=== PATIENT | male | born 1970 | race Caucasian/White ===

== ENCOUNTER 2024-12-18 17:04 | Inpatient (IN) | payer BC, SELFPAY ==
[2024-12-18] VITALS (23 sets, daily range): BP systolic 89–127; BP diastolic 42–60; BMI 28.2
[2024-12-18 14:05] LABS: Glucose - Point of Care 157 mg/dl (70-99)
--- NOTE | 2024-12-18 14:06 | ED.GENMED ---
History of Present Illness
<Warren Villalpando DO - Last Filed: 12/18/24 14:07>
General
Chief Complaint: Change in Mental Status
Time Seen by Provider: 12/18/24 14:00
<Ras Asif PA-C - Last Filed: 12/18/24 15:25>
General
Source: patient
Exam Limitations: none
History of Present Illness
History of Present Illness:
54-year-old male presents via EMS from home with complaints of weakness. This was a second call from EMS today. He declined treatment initially. He was told by a friend, and he came back at that time. Vital signs are stable for EMS. He was
placed in a wheelchair from EMS to about to be triaged from the waiting room and had an unresponsive episode. I was asked to get involved in the patient's case. He was assisted into a stretcher. On exam initially he was pale unresponsive jaundice
Phy Exam
<Ras Asif PA-C - Last Filed: 12/18/24 15:25>
Physical Exam
Physical Exam:
General: Unwell appearing male unresponsive initially
HEENT: Sclera icteric mucosa dry
Heart: tachycardia
Lungs: Clear no wheeze
Abdomen is soft nontender no pulsatile masses
Neurologic exam throughout my exam the patient woke up and was alert and oriented to person and place he is able to spell his name and give me his birthdate. He was able to lift both legs up
Course
<DO Phoebe Snow Last Filed: 12/18/24 14:07>
Orders/Labs/Results
Orders:
Orders
12/18/24 13:55
Electrocardiogram (*1) Urgent
Reason for Study: Syncope
EKG- Treatment ONCE
12/18/24 14:00
Type And Crossmatch [Type+Screen] Urgent
CT Head W/o Iv Contrast Urgent
Comment:
Reason For Exam: unresponsive
CPK [Creatine Phosphokinase] Urgent
Complete Blood Count/With Diff Urgent
Comprehensive Metabolic Panel Urgent
Ferritin Urgent
Comment: ADD ON
Iron Urgent
Comment: ADD ON
Lipase Urgent
Total Iron Binding Urgent
Comment: ADD ON
Troponin I Urgent
12/18/24 14:05
Urine Drug Abuse Screen Urgent
12/18/24 14:10
0.9% Sodium Chloride 1000 ml [Nss] 1,000 ml IV BOLUS
12/18/24 14:11
Prothrombin Time Urgent
12/18/24 14:14
ABO2 Routine
BBK Wristband Number:
Associate notified that ABO2 has been ordered: [id number]
Date: 12/18/24
Time: 14:11
Processing Talc And Borate Supervisor ID: [id number]
Alcohol Urgent
Ammonia Urgent
COVID-19 Antigen Urgent
Source: Nasal Swab
Influenza A+B Rapid Molecular Urgent
MERI Source: Nasal Swab
Specimen Description:
12/18/24 14:26
* Blood Bank Products Urgent
Blood Bank Products: *Packed RBC Leuko(PRBC's)
Quantity: 4
Transfuse Today: Yes
Reason: Anemia
12/18/24 14:27
Add On- LAB Urgent
Tests Added?: iron, TIBC, ferritin,
Abnormal Lab Results
12/18/24 12/18/24 12/18/24
13:58 14:00 14:11
WBC 29.4 H 10^3/uL
(4.8-10.8)
RBC 0.65 L 10^6/uL
(4.70-6.10)
Hgb 3.3 L* g/dL
(13.0-18.0)
Hct 9.0 L* %
(39.0-52.0)
MCV 138.5 H fL
(80.0-94.0)
MCH 50.8 H pg
(27.0-31.0)
RDW 30.4 H %
(11.5-14.5)
Abs Immat Gran (auto) 2.3 H 10^3/uL
(0-0.05)
Absolute Neuts (auto) 20.3 H 10^3/uL
(1.4-6.5)
Absolute Lymphs (auto) 4.2 H 10^3/uL
(1.2-3.4)
Absolute Monos (auto) 2.3 H 10^3/uL
(0.1-0.6)
Immature Gran % 7.7 H %
(0-0.5)
Lymphocytes % 14.2 L %
(20.5-51.1)
PT 16.3 H Sec
(11.4-14.6)
Carbon Dioxide 17 L mmol/L
(22-30)
BUN 79 H mg/dl
(9-20)
Creatinine 2.5 H mg/dL
(0.7-1.3)
Glucose 140 H mg/dl
(70-99)
Iron 275 H ug/dl
(49-181)
% Saturation 92 H %
(20-50)
Total Bilirubin 6.9 H mg/dl
(0.2-1.3)
Ammonia
Creatine Kinase 43 L U/L
(55-170)
Troponin I 0.046 H* ng/ml
POC Glucose 157 H mg/dl
(70-99)
12/18/24
14:14
WBC
RBC
Hgb
Hct
MCV
MCH
RDW
Abs Immat Gran (auto)
Absolute Neuts (auto)
Absolute Lymphs (auto)
Absolute Monos (auto)
Immature Gran %
Lymphocytes %
PT
Carbon Dioxide
BUN
Creatinine
Glucose
Iron
% Saturation
Total Bilirubin
Ammonia < 9 L umol/L
(9-30)
Creatine Kinase
Troponin I
POC Glucose
12/18/24 14:00
12/18/24 14:00
Vital Signs
Initial and Last Documented VS:
Initial Vital Signs
Temp Pulse Resp BP Pulse Ox
98.2 F 111 16 107/57 93
12/18/24 13:56 12/18/24 13:56 12/18/24 13:56 12/18/24 13:56 12/18/24 13:56
Last Documented Vital Signs
Temp Pulse Resp BP Pulse Ox
98.2 F 111 25 115/53 94
12/18/24 13:56 12/18/24 15:00 12/18/24 15:00 12/18/24 15:00 12/18/24 14:47
<Ras Asif PA-C - Last Filed: 12/18/24 15:25>
Orders/Labs/Results
Orders:
Orders
12/18/24 13:55
Electrocardiogram (*1) Urgent
Reason for Study: Syncope
EKG- Treatment ONCE
12/18/24 14:00
Type And Crossmatch [Type+Screen] Urgent
CT Head W/o Iv Contrast Urgent
Comment:
Reason For Exam: unresponsive
CPK [Creatine Phosphokinase] Urgent
Complete Blood Count/With Diff Urgent
Comprehensive Metabolic Panel Urgent
Ferritin Urgent
Comment: ADD ON
Iron Urgent
Comment: ADD ON
Lipase Urgent
Total Iron Binding Urgent
Comment: ADD ON
Troponin I Urgent
12/18/24 14:05
Urine Drug Abuse Screen Urgent
12/18/24 14:10
0.9% Sodium Chloride 1000 ml [Nss] 1,000 ml IV BOLUS
12/18/24 14:11
Prothrombin Time Urgent
12/18/24 14:14
ABO2 Routine
BBK Wristband Number:
Associate notified that ABO2 has been ordered: [id number]
Date: 12/18/24
Time: 14:11
Processing Talc And Borate Supervisor ID: [id number]
Alcohol Urgent
Ammonia Urgent
COVID-19 Antigen Urgent
Source: Nasal Swab
Influenza A+B Rapid Molecular Urgent
MERI Source: Nasal Swab
Specimen Description:
12/18/24 14:26
* Blood Bank Products Urgent
Blood Bank Products: *Packed RBC Leuko(PRBC's)
Quantity: 4
Transfuse Today: Yes
Reason: Anemia
12/18/24 14:27
Add On- LAB Urgent
Tests Added?: iron, TIBC, ferritin,
Abnormal Lab Results
12/18/24 12/18/24 12/18/24
13:58 14:00 14:11
WBC 29.4 H 10^3/uL
(4.8-10.8)
RBC 0.65 L 10^6/uL
(4.70-6.10)
Hgb 3.3 L* g/dL
(13.0-18.0)
Hct 9.0 L* %
(39.0-52.0)
MCV 138.5 H fL
(80.0-94.0)
MCH 50.8 H pg
(27.0-31.0)
RDW 30.4 H %
(11.5-14.5)
Abs Immat Gran (auto) 2.3 H 10^3/uL
(0-0.05)
Absolute Neuts (auto) 20.3 H 10^3/uL
(1.4-6.5)
Absolute Lymphs (auto) 4.2 H 10^3/uL
(1.2-3.4)
Absolute Monos (auto) 2.3 H 10^3/uL
(0.1-0.6)
Immature Gran % 7.7 H %
(0-0.5)
Lymphocytes % 14.2 L %
(20.5-51.1)
PT 16.3 H Sec
(11.4-14.6)
Carbon Dioxide 17 L mmol/L
(22-30)
BUN 79 H mg/dl
(9-20)
Creatinine 2.5 H mg/dL
(0.7-1.3)
Glucose 140 H mg/dl
(70-99)
Iron 275 H ug/dl
(49-181)
% Saturation 92 H %
(20-50)
Total Bilirubin 6.9 H mg/dl
(0.2-1.3)
Ammonia
Creatine Kinase 43 L U/L
(55-170)
Troponin I 0.046 H* ng/ml
POC Glucose 157 H mg/dl
(70-99)
12/18/24
14:14
WBC
RBC
Hgb
Hct
MCV
MCH
RDW
Abs Immat Gran (auto)
Absolute Neuts (auto)
Absolute Lymphs (auto)
Absolute Monos (auto)
Immature Gran %
Lymphocytes %
PT
Carbon Dioxide
BUN
Creatinine
Glucose
Iron
% Saturation
Total Bilirubin
Ammonia < 9 L umol/L
(9-30)
Creatine Kinase
Troponin I
POC Glucose
12/18/24 14:00
12/18/24 14:00
Vital Signs
Initial and Last Documented VS:
Initial Vital Signs
Temp Pulse Resp BP Pulse Ox
98.2 F 111 16 107/57 93
12/18/24 13:56 12/18/24 13:56 12/18/24 13:56 12/18/24 13:56 12/18/24 13:56
Last Documented Vital Signs
Temp Pulse Resp BP Pulse Ox
98.2 F 111 25 115/53 94
12/18/24 13:56 12/18/24 15:00 12/18/24 15:00 12/18/24 15:00 12/18/24 14:47
<Ras Asif PA-C - Last Filed: 12/18/24 15:25>
MDM/Problems Addressed
Differential Diagnosis Includes:
Generalized weakness with unresponsive episode consider liver failure versus anemia versus intoxication versus drug use, etiology is large
Check labs. He was hooked up to the monitor he became alert. Discussed with emergency room attending
<Ras Asif PA-C - Last Filed: 12/18/24 15:25>
*Critical Care Note
Total Time (30-74mins, 75-104mins- exclusive of procedures): Not Applicable
<Ras Asif PA-C - Last Filed: 12/18/24 15:25>
Update Note
Update Note:
Hemoglobin 3.3 hematocrit 9 white blood cell count 29,000 bilirubin 6.9. Multiple hematologic and metabolic abnormalities. I believe the unresponsive episode with his profound anemia. Vital signs have stabilized blood consent ordered stool was
brown and heme-negative. Discussed with emergency room attending saw the patient. Will admit to hospital for anemia
ED Attending Note
<Warren Villalpando DO - Last Filed: 12/18/24 14:07>
ED Attending Note
Patient seen and examined by attending physician: Yes
I performed the substantive portion of visit, reviewed & personally made and approve the management plan that is documented in note by myself or VICKIE.: Yes
ED Attending Note:
I evaluated the patient at bedside. The patient is jaundiced with scleral icterus. He was mildly hypotensive. He states he lives with his at home. It is unclear if he is HIV positive. His initial blood glucose was 157.
-
Portions of this chart may have been created with voice recognition software.� Occasional wrong word or��sound alike� substitutions may have occurred due to the inherent limitations of voice recognition software.
Discharge Plan
Departure
Patient Disposition: Admit
Date of Disposition: 12/18/24
Time of Disposition: 15:24
Presentation/result/management discussed w/ accepting MD/DO: Hospitalist
Discharge Problem:
Anemia
Prescriptions:
No Action
Hiv Medication
Referrals:
UNKNOWN - PT DOES,NOT KNOW [Family Provider] -
Interventions
Interventions:
*Risk Screen - Suicide Last Done: 12/18/24 14:05
*General Assessment Last Done: 12/18/24 14:05
*Neglect/Abuse Screening Last Done: 12/18/24 14:05
*ED- Fall Risk Assessment Last Done: 12/18/24 14:05
*ED COVID-19 Vaccine History Last Done: 12/18/24 14:05
ED- Pulmonary Assessment Last Done: 12/18/24 14:41
ED- Neurological Assessment Last Done: 12/18/24 14:41
ED- Cardiac Assessment Last Done: 12/18/24 14:41
ED Swallowing Screen Last Done: 12/18/24 14:41
Discharge Date and Time
Print Language: TURKMEN
[2024-12-18] MEDS: NSS 1000 IV (14:11)
[2024-12-18 14:20] LABS: % Basophils 0.1 % (0-2); % Eosinophils 1.1 % (0-6); % Immature Granulocytes 7.7 % (0-0.5); % Lymphocytes 14.2 % (20.5-51.1); % Monocytes 7.8 % (1.7-9.3); % Neutrophils 69.1 % (42.2-75.2); Absolute Eosinophils 0.3 10^3/uL (0-0.7); Absolute Immature Granulocytes 2.3 10^3/uL (0-0.05); Absolute Lymphocytes 4.2 10^3/uL (1.2-3.4); Absolute Monocytes 2.3 10^3/uL (0.1-0.6); Absolute Neutrophils 20.3 10^3/uL (1.4-6.5); Hemoglobin 3.3 g/dL (13.0-18.0); Mean Corp Hgb Conc. 36.7 g/dL (33.0-37.0); Mean Corpuscular Hgb 50.8 pg (27.0-31.0); Mean Corpuscular Volume 138.5 fL (80.0-94.0); Mean Platelet Volume 8.5 fL (7.4-10.4); Nucleated Red Blood Cells % 14.2 % (-); Platelet Count 284 10^3/uL (130-400); Red Blood Cell Count 0.65 10^6/uL (4.70-6.10); Red Cell Dist. Width 30.4 % (11.5-14.5); White Blood Cell Count 29.4 10^3/uL (4.8-10.8)
[2024-12-18 14:32] LABS: AST (SGOT) 48 U/L (17-59); Albumin 4.3 g/dl (3.5-5.0); Alkaline Phosphatase 73 U/L (38-126); Blood Urea Nitrogen 79 mg/dl (9-20); Calcium 9.4 mg/dl (8.4-10.2); Carbon Dioxide 17 mmol/L (22-30); Chloride 100 mmol/L (98-107); Creatine Phosphokinase 43 U/L (55-170); Estimated Creatinine Clearance 36 ml/min; Glucose 140 mg/dl (70-99); Lipase 94 U/L (23-300); Potassium 4.7 mmol/L (3.5-5.1); Sodium 135 mmol/L (135-145); Total Bilirubin 6.9 mg/dl (0.2-1.3); Total Protein 7.6 g/dl (6.3-8.2); eGFR 30.16
[2024-12-18 14:39] LABS: Ammonia < 9 umol/L (9-30)
[2024-12-18 14:40] LABS: Alcohol None Detected
[2024-12-18 14:45] LABS: Anisocytosis 2+; Hypochromasia 1+; Normal RBC Morphology No; Polychromasia 2+
[2024-12-18 14:46] LABS: ALT (SGPT) 33 U/L (0-50); Macrocytosis 2+; Troponin I 0.046 ng/ml
[2024-12-18 14:46] LABS: COVID-19 Antigen Negative (Negative)
[2024-12-18 15:02] LABS: Iron 275 ug/dl (49-181)
--- NOTE | 2024-12-18 15:02 | PHANOTE ---
med rec note- called rafy benitez on file who does not know patient medication, someone one in the back ground also speaking to rafy while i was on the phone, rafy ana luisa phone the phone on me. patient does not know his medication either, or in
ec[facility] or have current pharmacy records. called patient hina avila md at [phone]. rafy number on file is wrong and should be [phone].
[2024-12-18 15:11] LABS: Percent Saturation 92 % (20-50); Total Iron Binding Capacity 296 ug/dl (261-462)
[2024-12-18 15:12] LABS: INR 1.26; PT 16.3 Sec (11.4-14.6)
--- NOTE | 2024-12-18 15:23 | HPS.HSE ---
Addendum entered and electronically signed by Joel Diggs MD 12/18/24 19:56:
I saw and examined the patient.
The INVESTIGATION MANAGER or PA's note was reviewed and I agree with the note.
Comment:
54M HIV HAART, follows with [facility], HTN BPH p/w AMS weakness palpitations. Poor historian, most of history for records, ED report, and report from friend Janice at bedside. Patient found by friend/neighbor weak AMS reporting palpitations.
Initially declined EMS care but later changed his mind. Noted severely lethargic on arrival to ED, unresponsive, since improved (more awake alert conversant coherent) with IVF bolus though remains confused disoriented to place and time, possible
word finding difficulties. Sinus Tachy but otherwise VSS on room air, ED eval was also significant for severe Anemia Hgb 3.3 leukocytosis 29.4 and GOVIND Cr 2.5. No obvious signs of bleeding. Transfusions ordered however type and screen noted ab's
requiring blood from [facility], transfusion delayed as a resolt. With tachycardia elevated white count hx HIV possible GOVIND, significant concern for severe sepsis opportunistic infection (though severe anemia would also likely result in tachycardia
and stress reactive Leukocytosis without infection). Patient admitted to ICU for closer monitoring and further treatment, high risk situation.
Physical Exam
General: Pallor, appears acutely ill
HEENT: NormoCephalic, Atraumatic, sclera icterus
Respiratory: Clear
Cardiac: S1/S2, Regular Rhythm and Tachycardia
GI: abd Soft, Non Tender, seems distended, decreased bowel sounds
Musculoskeletal: No Clubbing, No Cyanosis and No Edema
Skin: No Rash
Neuro: AOx1 disoriented to place and time, seems to have some word finding difficulties, following simple commands
Psych: Confused
#Severe Anemia unclear Etiology possibly 2/2 Severe Sepsis unknown origin, concern immunocompromised opportunistic infection given hx HIV
#acute kidney injury
#Troponin elevation likely Non-Ischemic W[place] d/t severe anemia possible sepsis and GOVIND
#hyperbilirubinemia
#essential hypertension
#BPH
ICU admit
[employer] Supervisor Hematology ID eval requested
[facility]
Check Blood Cultures, UA reflex cx, Lactic Acid
Empiric Vanc Zosyn
CT head appreciated
check CT chest/abd/pelvis w/o IV contrast (oral contrast only) for possible source of infection
IVF support
Monitor renal function
check haptoglobin LDH ordered as add ons
trend troponin
Original Note:
Family Physician
-
Family Physician: NOT KNOW UNKNOWN - PT DOES
Chief Complaint
-
Weakness
History of Present Illness
Patient is a 54-year-old male with past medical history significant for HIV who presented to [facility] ED for evaluation of weakness. Patient with confusion at assessment, friend at bedside who assisted with HPI. Patient is known with HIV
and follows with a program downtown at [place]. Patients friend believes that EMS was called this morning r/t patient having palpitations and weakness, he initially refused care and a friend called EMS back a second time when he was transferred to [facility]. Patient was placed in a wheelchair and taken to triage upon arrival where nursing witnessed an unresponsive episode. Patient at initial assessment in ED presented pale, jaundice and unresponsive. Patient reports currently he is just upset
and embarrassed of situation and frustrated why he does not recall important things currently.
Medical History
Past Medical History
Past Medical History: Reports Other
Additional Past Medical History:
essential hypertension
BPH
HIV
Past Surgical History: Reports None
Social History
Tobacco: Non-smoker
Alcohol: Former
Drug: Former User
Personal:
Living: With Family
Employment: Employed
Family History
Family History: Not pertinent
Allergies / Home Medications
Allergies reflects when Allergies were last updated in [employer].
Home Medications with original date entered in [employer]
Allergy/Medication List:
Allergies
Allergy/AdvReac Type Severity Reaction Status Date / Time
No Known Allergies Allergy Verified 12/18/24 14:08
Home Medications
ascorbic acid (vitamin C) (Vitamin C oral powder) 1 g PO DAILY 12/18/24
bictegravir 50 mg-emtricitabine 200 mg-tenofovir alafenam 25 mg tablet (Biktarvy) 1 tab PO DAILY 12/18/24
finasteride 1 mg tablet 1 mg PO DAILY 12/18/24
lisinopril 20 mg-hydrochlorothiazide 12.5 mg tablet 1 tab PO DAILY 12/18/24
loperamide 2 mg tablet 2 mg PO Q6HPRN PRN diarrhea 12/18/24
loratadine 10 mg tablet 10 mg PO DAILYPRN PRN alleriges 12/18/24
minoxidil 2.5 mg tablet 2.5 mg PO DAILY 12/18/24
olopatadine 0.2 % eye drops (Eye Allergy Itch Relief) 1 drp BOTH EYES DAILYPRN PRN allergies 12/18/24
Review of Systems
-
Unable to obtain full review of systems at this time due to: Other (patient unable to recall, no current complaints besides weakness and memory difficulties )
History Source: Patient
Neurological: Reports Weakness and Other (memory recall delayed )
Physical Exam
Vital Signs
Vital Signs
Temp Pulse Resp BP Pulse Ox
98.2 F 111 25 115/53 94
12/18/24 13:56 12/18/24 15:00 12/18/24 15:00 12/18/24 15:00 12/18/24 14:47
Physical Exam
General: Well Developed, Well Nourished, Slurred Speech and Appears Chronically Ill
HEENT: NormoCephalic, Atraumatic and Other (sclera icteric )
Respiratory: Clear
Cardiac: S1/S2, Regular Rhythm and Tachycardia
Breast: Deferred by me
GI: Soft, Non Tender, Non Distended and Normal Bowel Sounds
Rectal: Hem Negative and Deferred by Provider
Genito-urinary: Deferred by me
Musculoskeletal: No Clubbing, No Cyanosis and No Edema
Skin: No Rash
Neuro: Awake and Other (patient AAOx3, slow memory recall on place)
Psych: Confused
Laboratory Results
-
12/18/24 14:00
12/18/24 14:00
Laboratory Results
PT 16.3 Sec (11.4-14.6) H 12/18/24 14:11
INR 1.26 12/18/24 14:11
Total Bilirubin 6.9 mg/dl (0.2-1.3) H 12/18/24 14:00
AST 48 U/L (17-59) 12/18/24 14:00
ALT 33 U/L (0-50) 12/18/24 14:00
Alkaline Phosphatase 73 U/L (38-126) 12/18/24 14:00
Troponin I 0.046 ng/ml H* 12/18/24 14:00
Lipase 94 U/L (23-300) 12/18/24 14:00
Data Reviewed
-
Medical Tests (Nuc Med, Echo, EKG etc): Report Reviewed by me (EKG: SINUS TACHYCARDIA)
Lab Data: Labs Reviewed by me (hgb 3.3, hct 9.0, WBC 29.4, BUN 79, Creat 2.5, tot bili 6.9, )
Impression/Plan
-
IMPRESSION/PLAN:
#anemia
hgb 3.3, hct 9.0
Iron studies: pending
stool heme negative
- Admit to ICU
- [employer] Supervisor consulted
- Blood consent obtained
- 4 units PRBCs
- Patient positive for antibodies, blood bank coordinating care with [facility]
- Consult Hematology
#sepsis unknown etiology
WBC 29.[address]: Focus of decreased density within the white matter lateral to the frontal horn of the left lateral ventricle, measurements given above. This most likely represents an area of encephalomalacia, possibly from
old infarction. A focal area of demyelination is also possible.
No evidence for acute intracranial hemorrhage. No evidence of mass effect with no midline shift.
Chest/Abd/Pel CT: pending
- ID consult
- start empiric abx (Vanc and Zosyn)
- IVF
#acute kidney injury
BUN 79, Creat 2.5
- IVF
- monitor BMP
- hold Biktarvy
#hyperbilirubinemia
- hold Biktarvy in setting of GOVIND and hyperbilirubinemia
#essential hypertension
- continue lisinopril-HCTZ and minoxidil with hold parameters
#BPH
- continue finasteride
#HIV
- hold Biktarvy in setting of GOVIND and hyperbilirubinemia
Code status: full code
DVT Prophylaxis: SCDs
[2024-12-18 16:26] LABS: Amphetamines Negative (Negative); Barbiturates Negative (Negative); Benzodiazepines Negative (Negative); Buprenorphine Negative (Negative); Cocaine Negative (Negative); Marijuana Negative (Negative); Methadone Negative (Negative); Methamphetamines Negative (Negative); Opiates Negative (Negative); Phencyclidine Negative (Negative); Tricyclic Antidepressants Negative (Negative)
[2024-12-18] MEDS: OMNIPAQUE 50 ML PO (18:21)
[2024-12-18 19:17] LABS: Troponin I 0.081 ng/ml
[2024-12-18 20:02] LABS: LDH 573 U/L (120-246)
[2024-12-18 20:20] LABS: Fibrinogen 429 MG/DL (199-459)
--- NOTE | 2024-12-18 20:29 | PHA.VAN.IN ---
Assessment
- Assessment
Renal Function: Unknown baseline
Concomitant Antimicrobials: piperacillin/tazobactam
Plan
- Plan
Initial / Loading Dose: vanc 2000mg pending administration
Maintenance Regimen: dosing by level
Monitoring: random level 12/19 599
Pharmacokinetics Vancomycin I
- -
Patient Age: 54
Patient Sex: Male
Vancomycin Day #: 1
Indication: Other
Requesting Provider: Dr. Diggs
Pertinent Antimicrobial Allergies:
no pertinent antimicrobial allergies
Height / Weight:
Height 5 ft 10 in
Actual Weight 89.3 kg
Pertinent Past Medical History: HIV
- Vital Signs / Lab Results
Temp Pulse Resp BP Pulse Ox
98.2 F 123 26 127/48 93
12/18/24 13:56 12/18/24 20:15 12/18/24 20:15 12/18/24 20:00 12/18/24 18:49
Lab Results - Hematology
12/18/24
14:00
WBC 29.4 H
Lab Results - Chemistry
12/18/24
14:00
BUN 79 H
Creatinine 2.5 H
Estimated Creat Clear 36
Albumin 4.3
12/18/24
18:40
Lactic Acid Cancelled
Microbiology Results
12/18/24 14:14 Influenza Types A & B (DANIEL) - Final
Nasal Swab Negative for Influenza A & B, NAAT
Negative results must be combined with clinical observations
and patient history.
Nucleic Acid Amplification test (NAAT)performed on the
[employer] platform.
[2024-12-18 20:43] LABS: Lactic Acid 5.7 mmol/L (0.7-2.0)
[2024-12-18] MEDS: LR 1000 IV (21:22)
[2024-12-18] MEDS: ZOSYN 50 IV (21:22)
[2024-12-18 21:24] LABS: Glucose - Point of Care 119 mg/dl (70-99)
[2024-12-18 21:44] LABS: Urine Albumin 2+ (Neg - Trace); Urine Bilirubin Negative (Negative); Urine Character Clear (Clear); Urine Color Amber; Urine Glucose Negative (Negative); Urine Ketone Negative (Negative); Urine Leukocyte 1+ (Negative); Urine Nitrite Negative (Negative); Urine Occult Blood 1+ (Negative); Urine Specific Gravity 1.015 (<1.030); Urine Urobilinogen 1+ (Neg - 1+)
[2024-12-18 21:55] LABS: Urine Red Blood Cell 0-2 /HPF (0-2)
--- NOTE | 2024-12-18 23:43 | PTCARENOTE ---
On arrival pt pale and lethargic, pt confused upon arrival, knows name but unable to say or where he is at. and friend at bedside. pt able to follow some commands, ST on the monitor, 2L NC 95%, no rectal bleeding reported, no vomiting,
voids in urinal tea colored, skin is intact with generalized bruising, Hgb 3.3 in ED, blood bank sent labs to [facility] to get blood for pt, awaiting call from [facility], RECEIVING SUPERVISOR aware and at bedside.
[2024-12-19] VITALS (44 sets, daily range): BP systolic 83–144; BP diastolic 25–87; BMI 28.8
[2024-12-19] MEDS: VANCOCIN 540 MG IV (00:37)
[2024-12-19 00:56] LABS: Troponin I 0.229 ng/ml
--- NOTE | 2024-12-19 01:44 | PTCARENOTE ---
pt continues to be restless in bed, removed IVs and heart monitor, pt educated on leaving equipment on, family remains at bedside, pt tachypneic and tachycardic, sitting up in bed stating he needs to void, unable to void at this time, pt BS for
173cc, bed alarm on and call luque in reach
--- NOTE | 2024-12-19 01:45 | PTCARENOTE ---
EMERGENCY MEDICINE SPECIALIST made aware of midnight labs, no new orders at this time
[2024-12-19] MEDS: ZOSYN 50 IV ×4 (03:47→21:41)
--- NOTE | 2024-12-19 04:12 | PTCARENOTE ---
pt continues to be restless, pt alert and follows some commands, tachy HR 115-125 and RR 30s to 40s, FOOD AND DRINK FACTORY WORKERS aware, family remains at bedside, bed alarm on and call luque in reach
--- NOTE | 2024-12-19 05:06 | PTCARENOTE ---
BPs slowly trending down last BP 95/37 (55), WAD COMPRESSOR OPERATOR ADJUSTER made aware. pt still responsive but restless in bed
--- NOTE | 2024-12-19 05:25 | PTCARENOTE ---
spoke with blood bank twice overnight and they have not received a call from [facility] about the 4 units of PRBCs, ENVIRONMENTAL ADVISOR aware, no new orders at this time. pt continues to have RR in the 30s-40s
--- NOTE | 2024-12-19 06:04 | PTCARENOTE ---
pt increasingly more symptomatic over the past hour, labored breathing, RR in the 40s, more lethargic, SUPERVISOR SLASHING DEPARTMENT aware and at bedside to assess pt, SUPERVISOR SLASHING DEPARTMENT in contact with medical unit secretary to discuss [facility]Bs delivery with [facility], family updated by SUPERVISOR SLASHING DEPARTMENT, lactic
and ABG ordered and completed, non rebreather placed by respiratory, call luque in reach
[2024-12-19 06:20] LABS: B.E. -12.8 mmol/L; HCO3 9.8 mmol/L (21-28); PCO2 17 mmHg (35-48); PO2 165 mmHg (83-108); pH 7.37 (7.35-7.45)
[2024-12-19 06:25] LABS: O2 Saturation % 99.4 % (94-98); O2 Therapy %Oxygen/Room Air 40
[2024-12-19 06:26] LABS: Lactic Acid 15.3 mmol/L (0.7-2.0)
--- NOTE | 2024-12-19 06:56 | W.PN.UPDATE ---
Update Note
Progress Note Update
Patient noted to be in shock, started on Levophed, tachypneic, breathing at 40 per min, in extremis. Matched blood still not available. Lactate noted to be 15. I am very concerned u impending cardiac arrest. Upated at bedside, discussed with
professional tutor retail assistant and Blood bank, , Dr. Lauren. Will proceed with emergent blood transfusion considering it is a life or situation. I explained to the the risk of fatal reaction to unmatched blood. I also updated him about risk of
cardiac arrest during intubation. has consented to proceed.
[2024-12-19] MEDS: LEVOPHED 250 IV ×2 (07:01→09:59)
[2024-12-19] MEDS: BENADRYL 25 MG IV (07:07)
[2024-12-19] MEDS: SOLU-MEDROL PF 40 MG IV (07:07)
[2024-12-19] MEDS: OFIRMEV 100 IV (07:12)
--- NOTE | 2024-12-19 07:21 | W.PN.HOSP.TC ---
Today's Communication/Plan
-
see note
Assessment / Plan
Assessment / Plan
Physical Exam
General: Pallor, critically ill
HEENT: NormoCephalic, Atraumatic, sclera icterus
Respiratory: Clear intubated
Cardiac: S1/S2, Regular Rhythm and Tachycardia
GI: abd Soft, Non Tender, seems distended, decreased bowel sounds
Musculoskeletal: No Clubbing, No Cyanosis and No Edema
Skin: No Rash
Neuro: sedated
54M HIV HAART, follows with [facility], HTN BPH p/w AMS weakness palpitations. Noted severely lethargic on arrival to ED, unresponsive, since improved (more awake alert conversant coherent) with IVF bolus though remained confused disoriented to place
and time, possible word finding difficulties. Sinus Tachy but otherwise VSS on room air, ED eval was also significant for severe Anemia Hgb 3.3 leukocytosis 29.4 and GOVIND Cr 2.5. No obvious signs of bleeding. Transfusions ordered however type and
screen noted ab's requiring blood from [facility], transfusion delayed as a result. With tachycardia elevated white count hx HIV possible GOVIND, significant concern for severe sepsis opportunistic infection (though severe anemia would also likely
result in tachycardia and stress reactive Leukocytosis without infection). Patient admitted to ICU for closer monitoring. Patient in extremis by corporate real estate manager next day prompting intubation and emergent transfusion least incompatible blood.
#severe anemia hgb 3.3, hct 9.0
#Acute Respiratory Failure, Vent Dependent Resp Failure
#Lactic Acidosis likely 2/2/ severe anemia
#Hypovolemic Shock
Iron studies: appreciated
stool heme negative
- ICU admit
- [employer] Advanced Operator Maintainer consult appreciated
-Vent mgmt, pressor support, stress dose steroids Hydrocortisone as per ICU
- Patient positive for antibodies, blood bank coordinating care with [facility]
- Least incompatible PRBCs emergently transfused with pre-treatment steroids, tylenol, and benadryl
- Hematology eval appreciated possible autoimmune hemolytic anemia contributing, steroid decadron added on top of stress dose steroids hydrocortisone
#Coffee ground emesis following intubation NGT placement
#Shock Liver likely 2/2 severe anemia hypotension as above
-GI eval appreciated coffe ground emesis likely NG tube trauma, eventual EGD planned pending stability or sooner if signs of brisk active bleeding
- trend LFTs
#Possible septic shock unclear source
#Leukocytosis, Tachycardia
Head CT: Focus of decreased density within the white matter lateral to the frontal horn of the left lateral ventricle, measurements given above. This most likely represents an area of encephalomalacia, possibly from old infarction. A focal area of
demyelination is also possible. No evidence for acute intracranial hemorrhage. No evidence of mass effect with no midline shift.
Chest/Abd/Pel CT appreciated Lymphadenopathy neck chest wall pelvis likely reactive inflammatory nodes, possible neoplastic lymph nodes, coronary artery calcifications, no evidence pna, large gallstone w/o evidence cholecystitis or biliary ductal
dilation
- ID consult appreciated cont empiric zosyn, vanc discontinued
#acute kidney injury
- Blood transfusions as above
- monitor renal function
- hold Biktarvy
#hyperbilirubinemia
- hold Biktarvy in setting of GOVIND and hyperbilirubinemia
#essential hypertension
- holding home antihypertensives due to shock as above
#BPH
- continue finasteride
#HIV
- hold Biktarvy in setting of GOVIND and hyperbilirubinemia
dvt ppx scd
gi ppx protonix
Full Code
Total Critical Care Time__50___ minutes. I was immediately available to the patient and staff. I personally examined, reviewed labs, diagnostic images/reports, interpretations, treatment plans, discussed patient care with other providers and
patient's Jan (patient is unable to make decisions), entered orders as appropriate and documented the medical record.
Anticipated Discharge: > 48 hours
Subjective/Interval History
-
Date of Service: December 19, 2024
In respiratory distress early this morning prompting intubation and emergent transfusion least incompatible blood.
Objective Data
-
Labs:
Laboratory Results
12/19/24 12/19/24
05:44 06:00
WBC Cancelled
Hgb Cancelled
Hct Cancelled
Plt Count Cancelled
HCO3 9.8 L*
Sodium Cancelled
Potassium Cancelled
Chloride Cancelled
Carbon Dioxide Cancelled
BUN Cancelled
Creatinine Cancelled
Glucose Cancelled
Calcium Cancelled
Total Bilirubin Cancelled
AST Cancelled
ALT Cancelled
Alkaline Phosphatase Cancelled
Vital Signs:
Vital Signs
Temp Pulse Resp BP Pulse Ox
99.4 F 108 34 98/38 85
12/19/24 03:30 12/19/24 07:00 12/19/24 07:00 12/19/24 07:00 12/19/24 05:52
I&O
12/18/24 12/19/24 12/20/24
06:59 06:59 06:59
Intake Total 0 / 0
Output Total 750 / 750
Balance -750 / -750
[2024-12-19] MEDS: SUBLIMAZE 50 MCG IV ×7 (07:40→21:31)
--- NOTE | 2024-12-19 08:35 | CON.INTV ---
Addendum entered and electronically signed by Roshan Matias MD 12/19/24 15:07:
.
Original Note:
Consultation
Consultation Request
Date/Time Consultation Requested: 20:46
Date/Time Consultation Performed: 8:41
Medical History
-
Chief Complaint: AMS
History of Present Illness:
54-year-old male with past medical history of HIV currently on HAART, being seen by ID at [place], hypertension, BPH who presented to [facility] with altered mental status and weakness. Patient was diagnosed with Kaposi's sarcoma and HIV in
2020. He was initially treated with Doxil for sarcoma of the skin until 2023. He did not have any disease in the mucosa�colonoscopy was negative and was negative for mets. He was transiently on Pomalidomide and developed severe anemia. Patient's
last CD4 count was 367, stable. 2 months ago, hemoglobin was 10 and all other labs are normal.
Patient was noted to be severely lethargic in the ED and unresponsive. He was given IV fluid bolus. Remained sinus tachycardia with word finding difficulty. Labs in the ED showed hemoglobin of 3.3, leukocytosis 29.4, creatinine 2. 5, without
obvious signs of bleeding. Transfusion was initially ordered however due to antibodies noted on type and screen, blood was required from [facility] and transfusion was delayed. Patient has been admitted to PCU for closer monitoring due to high risk
situation. With concern for shock and hypovolemia, with potential image of sepsis, patient was started on pressor therapy and required invasive blood pressure monitoring this morning. Manage blood was not available from [facility] and lactate was
15. Emergent blood transfusion had to be considered and has been was explained the risk of fatal reaction to unmatched blood, but consent was given to proceed. Additionally due to respiratory distress, breathing 40 breaths/min, patient was
intubated and goal of MAP bolus above 65. Patient this morning during rounds was on 2 pressors, potentially starting third pressor. 2 more unmatched units of blood were hung due to severely low hemoglobin�4.9, previously 3.3.
Vitals currently 133/58, pulse of 96, respirations 30, afebrile 97.7, 100% O2 saturation on vent.
Past medical history�HIV, hypertension, BPH
Past surgical history�not documented, patient currently intubated unable to obtain
Past Medical History
Past Medical History: Other
Social History
Personal:
Living: With Family
Allergies / Home Medications
Allergies
Allergy/AdvReac Type Severity Reaction Status Date / Time
No Known Allergies Allergy Verified 12/18/24 14:08
Home Medications
�Medication �Instructions �Recorded �Confirmed �Last Taken �Type
ascorbic acid (vitamin C) (Vitamin 1 g PO DAILY 12/18/24 12/18/24 Unknown History
C oral powder)
bictegravir 50 mg-emtricitabine 1 tab PO DAILY 12/18/24 12/18/24 Unknown History
200 mg-tenofovir alafenam 25 mg
tablet (Biktarvy)
finasteride 1 mg tablet 1 mg PO DAILY 12/18/24 12/18/24 Unknown History
lisinopril 20 1 tab PO DAILY 12/18/24 12/18/24 Unknown History
mg-hydrochlorothiazide 12.5 mg
tablet
loperamide 2 mg tablet 2 mg PO Q6HPRN PRN diarrhea 12/18/24 12/18/24 Unknown History
loratadine 10 mg tablet 10 mg PO DAILYPRN PRN alleriges 12/18/24 12/18/24 Unknown History
minoxidil 2.5 mg tablet 2.5 mg PO DAILY 12/18/24 12/18/24 Unknown History
olopatadine 0.2 % eye drops (Eye 1 drp BOTH EYES DAILYPRN PRN 12/18/24 12/18/24 Unknown History
Allergy Itch Relief) allergies
Review of Systems
-
Unable to Obtain full review of systems at this time due to: Patient Intubation
History Source: Patient
Vitals / Labs / Diagnostic Testing
Vital Signs
Temp Pulse Resp BP Pulse Ox
99.4 F 108 34 98/38 100
12/19/24 03:30 12/19/24 07:00 12/19/24 07:00 12/19/24 07:00 12/19/24 07:49
Lab Data
12/19/24 06:00
12/19/24 06:00
Laboratory Results
12/18/24 12/19/24
14:11 05:44
PT 16.3 H
INR 1.26
pH 7.37
pCO2 17 L*
pO2 165 H
HCO3 9.8 L*
O2 Delivery Level %oxygen/room air 40
Microbiology
12/18/24 14:14 Nasal Swab Influenza Types A & B (DANIEL) - Final
Negative for Influenza A & B, NAAT
Negative results must be combined with clinical observations
and patient history.
Nucleic Acid Amplification test (NAAT)performed on the
[employer] platform.
Diagnostic Testing:
Physical Exam
-
HEENT: Normocephalic, Anicteric and Other (Dry mucous membranes, pale, appears acutely ill)
Cardiovascular: S1/S2 and Regular Rhythm
Respiratory: Clear
GI: Soft and Non Tender
Neurology: Other (In and out of consciousness)
Skin: Warm and Dry
General: Respiratory Distress
Assessment
-
54-year-old male with past medical history of HIV, hypertension, BPH currently being managed in the ICU for shock and severe anemia.
#Severe anemia�unknown origin, possibly aplastic anemia secondary to pomalidomide therapy
#Shock, possibly secondary to hypovolemia versus sepsis
#HIV on HAART
#GOVIND
#Troponin elevation likely secondary to nonischemic UT
#Hyperbilirubinemia
#Elevated LFTs
#Essential hypertension
#BPH
� ICU admit
� Hematology, ID on board, appreciate input
� Status post 2 units of unmatched packed red blood cells, currently transfusing 2 units of unmatched packed red blood cells. Awaiting matched blood from [facility]�transfuse when available
� Blood cultures, UA reflex culture pending
� Continue to trend lactic acid�initially 15, currently 13
� Continue empiric vancomycin and Zosyn
� Continue pressor support, currently on norepinephrine, phenylephrine and vasopressin
� Continue IV fluid support
� Continue to monitor BMPs for electrolyte and renal abnormalities
� Pending haptoglobin, bilirubin, B12, folate labs
� LDH elevated at 573, continue to monitor
� Continue to trend troponins
� IV PPI 80 mg given stat, continue IV 40 mg PPI twice daily
� Continue IV hydralazine 5 mg Q4 as needed for blood pressure control
� Continue [place] and monitor ins and outs
� Continue NG tube to low intermittent suction and irrigation every 4
� Continue wrist restraints to rails x 4 for safety
Full code
--- NOTE | 2024-12-19 08:38 | OR.RPT ---
Operative Report
Operative Report
Right subclavian central venous catheter placement
Informed consent was obtained from patient's spouse at bedside. Patient in septic shock on pressor therapy and needed emergent central line access.
Bedside ultrasound was used to confirm patency of right subclavian vein. Under sterile condition area was subsequently cleaned and a full body drape was placed. 3 mL of lidocaine was injected locally for local anesthesia. Under sterile condition
and with an ultrasound probe in place, real-time long axis visualization and cannulation of subclavian vein was performed until blood was aspirated. Syringe was then detached and guidewire was advanced without any resistance. With guidewire in
place, needle was withdrawn. Ultrasound was used again to confirm positioning of guidewire inside the vein lumen. A small jeromy was placed at the skin level and a dilator was placed to about 50% of its length. Dilator was removed and a central
line catheter was threaded over the guidewire. Once catheter inserted guidewire was removed. Caps were placed on all 3 ports of central line. Sterile flushes were used to confirm withdrawal of blood and easy flushing of all 3 ports. Central
catheter was then sutured to skin and dressing was placed.
Complications: None
Blood loss: None
Chest x-ray: Pending
Patient tolerated procedure well.
Performed by: Roshan Matias MD
Date of service: 12/19/2024
--- NOTE | 2024-12-19 08:40 | OR.RPT ---
Operative Report
Operative Report
Right Radial Arterial catheter placement
Informed consent was obtained from patient's spouse at bedside. Patient in septic shock on pressor therapy and needs invasive blood pressure monitoring.
Bedside ultrasound was used to confirm patency of right radial artery. Under sterile condition area was subsequently cleaned and a drape was placed. Under direct ultrasound visualization,, radial artery was cannulated. Once blood was noted in the
chamber guidewire was advanced. Arterial catheter was subsequently advanced over the guidewire, and then guidewire was removed. Pressure tubing was subsequently attached to the catheter and arterial waveform was noted on the monitor. Subsequently
a dressing was placed.
Complications: None
Blood loss: None
Chest x-ray: without any evidence of pneumothorax, central line in appropriate location.
Patient tolerated procedure well.
Performed by: Roshan Matias MD
Date of service: 12/19/2024
--- NOTE | 2024-12-19 08:40 | OR.RPT ---
Operative Report
Operative Report
Rapid sequence intubation
Indication: Respiratory distress, Shock, severe lactic acidosis
Pre-oxygenation: Non re-breather, followed by Bag valve
Premedication: Fentanyl 50 mcg
Induction agent: Etomidate 30 mg
Paralytic agent: Rocuronium 80 mg
Consent: Emergent procedure, Obtained from spouse at bedside
Patient was noted to be in respiratory distress, breathing at 40 per min. Decision was made to emergently intubate the patient. [id number] was used to bring saturations all the way up to mid 90s. Fentanyl 50 mcg IV was given as pre-medication
considering patient was tachycardiac and tachypneic. Levophed was starting to keep MAP > 65 mm.
Etomidate 30 was given as an induction agent followed by rocuronium 80 for paralytic. Patient was continued on BVM, once patient became apneic a GlideScope was used with blade #3, and grade 1 view of vocal cords was obtained. Under direct
visualization an 7.5 ET tube was passed through the vocal cords without difficulty and stylette was removed. Positive color change was observed and patient was bagged and subsequently attached to ventilator. Bilateral air entry was confirmed with
stethoscope and chest x-ray awaited. Bilateral good air entry noted, and saturation noted to be 100%. In view of lactic acidosis, patient was hyperventilated while bagging and then started on 500 tidal volume with 30 per mi RR for 15 ltr minute
ventilation pending ABG
Post intubation sedation with Propofol and Fentanyl
Number of attempts: 1
Complications: None
Time spent: 20 min
[2024-12-19] MEDS: PITRESSIN 100 IV ×2 (09:07→16:23)
[2024-12-19 09:35] LABS: B.E. -15.3 mmol/L; HCO3 9.9 mmol/L (21-28); O2 Saturation % 99.3 % (94-98); PCO2 21 mmHg (35-48); PO2 99 mmHg (83-108)
[2024-12-19 09:41] LABS: pH 7.28 (7.35-7.45)
[2024-12-19 10:10] LABS: Vancomycin Random 18.3 ug/ml
[2024-12-19] MEDS: SODIUM BICARBONATE 50 MEQ IV (10:11)
[2024-12-19] MEDS: LR 500 IV (10:23)
[2024-12-19] MEDS: NSS (PRESERVATIVE FREE) 20 ML IV (10:23)
[2024-12-19] MEDS: PROTONIX IV 80 MG IV (10:24)
[2024-12-19] MEDS: NEO-SYNEPHRINE 250 IV (10:24)
--- NOTE | 2024-12-19 10:24 | CON.ONC ---
Addendum entered and electronically signed by Juan Jose Riggs, DO 12/19/24 14:53:
Following review the updated medication list it appears the patient has been placed on Solu-Medrol 50 mg every 6 hours. Will increase steroid density with dexamethasone 20 mg every 24
Addendum entered and electronically signed by Juan Jose Riggs, DO 12/19/24 14:31:
Review of blood bank data suggests AYSE positive with complement fixation suggesting a component of autoimmune hemolytic anemia as supported by indirect bilirubin elevation as one of the causes of profound anemia. Hold Biktarvy every as it causes
lactic acidosis and elevated bilirubin. Will initiate dexamethasone 40 mg IV daily with PPI.
Original Note:
Impression
Impression
Severe anemia with RDW greater than 30 macrocytosis due to significant reticulocytosis
Multiple antibodies obstructing crossmatch
Reactive leukocytosis
Upper GI bleed coffee grounds and NG tube
Hypotension
HIV
Shock
Rule out sepsis
Lactic acid 13
Plan
Plan
Review of the peripheral smear shows significant reticulocytosis without schistocytes or targets
Team was instructed to premedicate with Benadryl, Tylenol and Solu-Medrol
Patient received 2 units rapid infusion of least incompatible blood which he tolerated so far
Intubated
Hemolysis evaluation sent
Fractionate bilirubin
Substrate assessment
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
Continue ICU level support
Will be GI assessment
Patient History
History of Present Illness
54 y/o HIV follows with [facility], HTN BPH p/w currently intubated and sedated. Patient found by friend/neighbor weak with AMS reporting palpitations. Noted severely lethargic on arrival to ED. ED evaluation was significant for severe Anemia Hgb
3.3, WBC 29.4 and GOVIND Cr 2.5. No obvious signs of bleeding. Evaluation by blood bank revealed multiple antibodies currently being evaluated by the [facility]. Patient required urgent transfusion with deterioration of his clinical status. He was
given least incompatible following premedications with Tylenol, Benadryl and Solu-Medrol. He tolerated the transfusion well. He has been intubated and is stable with improved blood pressure. NG tube placed appears to have coffee-ground material
suggesting potential for upper GI bleed.
Past-Medical/Surgical History
Past Medical History
HTN
BPH
HIV
Past surgical history
None reported
Social History
Tobacco: Non-smoker
Alcohol: Former
Drug: Former User
Personal:
Living: With Family
Employment: Employed
Family History
Family History: Not pertinent
Patient Medication
�Medication �Instructions �Recorded �Confirmed �Last Taken �Type
ascorbic acid (vitamin C) (Vitamin 1 g PO DAILY 12/18/24 12/18/24 Unknown History
C oral powder)
bictegravir 50 mg-emtricitabine 1 tab PO DAILY 12/18/24 12/18/24 Unknown History
200 mg-tenofovir alafenam 25 mg
tablet (Biktarvy)
finasteride 1 mg tablet 1 mg PO DAILY 12/18/24 12/18/24 Unknown History
lisinopril 20 1 tab PO DAILY 12/18/24 12/18/24 Unknown History
mg-hydrochlorothiazide 12.5 mg
tablet
loperamide 2 mg tablet 2 mg PO Q6HPRN PRN diarrhea 12/18/24 12/18/24 Unknown History
loratadine 10 mg tablet 10 mg PO DAILYPRN PRN alleriges 12/18/24 12/18/24 Unknown History
minoxidil 2.5 mg tablet 2.5 mg PO DAILY 12/18/24 12/18/24 Unknown History
olopatadine 0.2 % eye drops (Eye 1 drp BOTH EYES DAILYPRN PRN 12/18/24 12/18/24 Unknown History
Allergy Itch Relief) allergies
Active Medications
Generic Name Dose Route Start Last Admin
Trade Name Freq PRN Reason Stop Dose Admin
Fentanyl Citrate 50 mcg 12/19/24 08:45 12/19/24 09:26
Fentanyl (50 Mcg/Ml) 100 Mcg/2 Ml Ampul IV 01/02/25 08:44 50 mcg
[id number] PRN Administration
see protocol
Protocol
Hydralazine HCl 5 mg 12/18/24 20:46
Hydralazine 20 Mg/Ml Vial IV 01/15/25 20:45
Q4HPRN PRN
SBP>140 or DBP>100
Vancomycin HCl 1 each/ Device 0 mls @ 0 mls/hr 12/18/24 20:05
IV
PER PROTOCOL JAMILA
Protocol
As Directed
Piperacillin Sod/Tazobactam Sod 3.375 gram in 50 mls @ 100 mls/hr 12/18/24 22:00 12/19/24 09:40
Zosyn IV 50 mls
Q6H JAMILA Administration
Norepinephrine Bitartrate 4 mg in 250 mls @ 0 mls/hr 12/19/24 06:45 12/19/24 09:59
Levophed IV 250 mls
PER PROTOCOL JAMILA Administration
Protocol
Per Protocol
Vasopressin 20 units in 100 mls @ 0 mls/hr 12/19/24 08:45 12/19/24 09:07
Pitressin IV 100 mls
PER PROTOCOL JAMILA Administration
Protocol
Per Protocol
Propofol 1,000,000 mcg in 100 mls @ 0 mls/hr 12/19/24 08:45
Diprivan IV
PER PROTOCOL JAMILA
Protocol
Per Protocol
Fentanyl Citrate 1,000 mcg in 100 mls @ 0 mls/hr 12/19/24 08:45
Sublimaze IV
PER PROTOCOL JAMILA
Protocol
Per Protocol
Lactated Ringer's 500 mls @ 0 mls/hr 12/19/24 10:30
Lr IV 12/19/24 10:31
BOLUS ONE
As Directed
Phenylephrine HCl 50 mg in 250 mls @ 0 mls/hr 12/19/24 10:30
Cesar-Synephrine IV
PER PROTOCOL JAMILA
Protocol
Per Protocol
Finasteride 1 Mg 0 mg 12/19/24 08:00
Tablet - Take 1 PO 01/16/25 07:59
Tablet (1mg) Po DAILY JAMILA
Daily
Pantoprazole Sodium 40 mg 12/19/24 20:00
Pantoprazole Sodium 40 Mg/10 Ml Vial IV 01/16/25 19:59
BID JAMILA
Polyethylene Glycol 17 grams 12/20/24 08:00
Polyethylene Glycol Powder 17 Grams Packet TUBE 01/17/25 07:59
DAILY JAMILA
Sodium Chloride 0 flush 12/18/24 21:00
Sodium Chloride 0.9% (Flush) Syringe IV 01/15/25 20:59
PER PROTOCOL JAMILA
Sodium Chloride 10 ml 12/19/24 20:00
Sodium Chloride 0.9% (Preservative Free) 10 Ml Vial IV 01/16/25 19:59
BID JAMILA
Review of Systems
-
Unobtainable intubated and sedated.
Physical Exam
-
General: Well Nourished and Intubated
HEENT: Negative Jaundice
Cardiology: Normal Sinus Rhythm and Other (Tachycardia)
Pulmonary: Clear
GI: Soft
Musculoskeletal: No Clubbing and No Edema
Extremities: Pulses Present
Labs
Lab Results
WBC Cancelled 12/19/24 06:00
RBC Cancelled 12/19/24 06:00
Hgb Cancelled 12/19/24 06:00
Hct Cancelled 12/19/24 06:00
MCV Cancelled 12/19/24 06:00
MCH Cancelled 12/19/24 06:00
MCHC Cancelled 12/19/24 06:00
RDW Cancelled 12/19/24 06:00
Plt Count Cancelled 12/19/24 06:00
MPV Cancelled 12/19/24 06:00
Abs Immat Gran (auto) Cancelled 12/19/24 06:00
Absolute Neuts (auto) Cancelled 12/19/24 06:00
Absolute Lymphs (auto) Cancelled 12/19/24 06:00
Absolute Monos (auto) Cancelled 12/19/24 06:00
Absolute Eos (auto) Cancelled 12/19/24 06:00
Absolute Basos (auto) Cancelled 12/19/24 06:00
Immature Gran % Cancelled 12/19/24 06:00
Neutrophils % Cancelled 12/19/24 06:00
Lymphocytes % Cancelled 12/19/24 06:00
Monocytes % Cancelled 12/19/24 06:00
Eosinophils % Cancelled 12/19/24 06:00
Basophils % Cancelled 12/19/24 06:00
Creatinine Cancelled 12/19/24 06:00
Vital Signs
Vital Signs
Temp Pulse Resp BP Pulse Ox
97.8 F 95 30 135/58 100
12/19/24 07:53 12/19/24 10:15 12/19/24 10:15 12/19/24 08:20 12/19/24 10:00
--- NOTE | 2024-12-19 10:28 | PTCARENOTE ---
Addendum entered by Cara Melton RN 12/19/24 10:34:
ngt placed to LIS, large amount coffee ground drainage. aware
Original Note:
patient report received@0700. patient received hypotensive, restless and pulling off oxygen. engraver automatic at bedside. stat meds to premedicate prior to unmatched PRBC's administered. all consents obtained from patient spouse. first unit administered,
patient lethargic, minimally responsive. emergently intubated by engraver automatic without issue. levophed titration to keep map >65. second unit administered, right subclavian triple line and right radial line inserted by engraver automatic. this senior underwriter placed
an NGT into right nare without issue and mendoza catheter was inserted. stat cxr obtained for placement. propofol initiated. medicated with fentanyl for vent management. patient awake and able to follow commands. labs sent. critical results reported
to engraver automatic. max dose levoiphed, 2 doses bicarb given. fluid bolus initiated, tamiko gtt initiated. family at bedside. updated. support given
[2024-12-19] MEDS: LEVOPHED 258 MG IV ×3 (10:44→18:36)
[2024-12-19] MEDS: SODIUM BICARBONATE 150 MEQ IV (10:44)
[2024-12-19 10:53] LABS: ALT (SGPT) 775 U/L (0-50); AST (SGOT) 1087 U/L (17-59); Albumin 3.6 g/dl (3.5-5.0); Alkaline Phosphatase 60 U/L (38-126); Blood Urea Nitrogen 79 mg/dl (9-20); Carbon Dioxide 8 mmol/L (22-30); Chloride 104 mmol/L (98-107); Estimated Creatinine Clearance 33 ml/min; Glucose 133 mg/dl (70-99); Magnesium 2.6 mg/dl (1.6-2.3); Phosphorus 8.3 mg/dl (2.5-4.5); Potassium 5.5 mmol/L (3.5-5.1); Sodium 138 mmol/L (135-145); Total Bilirubin 7.2 mg/dl (0.2-1.3); Total Protein 6.5 g/dl (6.3-8.2); Triglycerides 139 mg/dl (10-149)
[2024-12-19 10:58] LABS: Hematocrit 12.7 % (39.0-52.0); Hemoglobin 4.9 g/dL (13.0-18.0); Mean Corp Hgb Conc. 38.6 g/dL (33.0-37.0); Mean Corpuscular Hgb 46.2 pg (27.0-31.0); Mean Corpuscular Volume 119.8 fL (80.0-94.0); Mean Platelet Volume 9.3 fL (7.4-10.4); Platelet Count 133 10^3/uL (130-400); Red Blood Cell Count 1.06 10^6/uL (4.70-6.10); Red Cell Dist. Width 33.1 % (11.5-14.5); White Blood Cell Count 34.7 10^3/uL (4.8-10.8)
--- NOTE | 2024-12-19 11:06 | PTCARENOTE ---
third unit emergency released PRBC initiated. per tile setter supervisor, no need for premedication prior to these next units. double concentrated levophed initiated, tamiko gtt per work list. bicarb infusion per orders
[2024-12-19 11:48] LABS: Direct Bilirubin 3.1 mg/dl (0.0-0.4)
--- NOTE | 2024-12-19 12:03 | PHA.VAN.FU ---
Vancomycin Assessment / Plan
- Assessment
Renal Function: SCR Increasing
WBC's are: Trending Up
In the past 24 hrs, patient has been: Afebrile
Concomitant Antimicrobials: piperacillin/tazobactam
- Assessment - Therapeutic Drug Monitoring
Random Level: 18.3 - drawn ~9H after 2g loading dose
- Dosing Plan
Dosing by Level: Hold off on dosing today (hold off on dosing for now - will repeat level to assess this evening)
Given increase in SCR, suspect patient may not require further dosing today
However, given severity of infection and level was drawn < 10H after loading dose, will obtain a repeat level to evaluate for further dosing
- Monitoring Plan
Random Level: 12/19 1600 and 12/20 0600
- Follow Up
Pharmacy will continue to follow.
Vancomycin Follow UP
- -
Patient Age: 54
Patient Sex: Male
Vancomycin Day #: 1 (loading dose received 12/19 00:37)
Indication: Other
Requesting Provider: Dr. Diggs
Pertinent Antimicrobial Allergies:
no pertinent antimicrobial allergies
Height / Weight:
Height 5 ft 10 in
Actual Weight 91.1 kg
Pertinent Past Medical History: HIV
- Vital Signs / Lab Results
Temp Pulse Resp BP Pulse Ox
97.7 F 96 30 133/58 100
12/19/24 11:23 12/19/24 11:15 12/19/24 11:15 12/19/24 11:15 12/19/24 11:25
Lab Results - Hematology
12/18/24 12/19/24 12/19/24
14:00 06:00 09:58
WBC 29.4 H Cancelled 34.7 H
Lab Results - Chemistry
12/18/24 12/19/24 12/19/24
14:00 06:00 09:18
BUN 79 H Cancelled 79 H
Creatinine 2.5 H Cancelled 2.7 H
Estimated Creat Clear 36 Cancelled 33
Albumin 4.3 Cancelled 3.6
12/18/24 12/18/24 12/19/24
18:40 20:19 00:21
Lactic Acid Cancelled 5.7 H* 8.0 H*
12/19/24 12/19/24 12/19/24
00:21 04:46 05:43
Lactic Acid Cancelled Cancelled 15.3 H*
12/19/24
09:18
Lactic Acid 13.0 H*
Lab Results - Urine
12/18/24
21:24
Urine Nitrite (Reflex) Negative
Leukocyte Esterase Rfl 1+ A
Ur Squamous Epith Cells 3-5
Microbiology Results
12/18/24 14:14 Influenza Types A & B (DANIEL) - Final
Nasal Swab Negative for Influenza A & B, NAAT
Negative results must be combined with clinical observations
and patient history.
Nucleic Acid Amplification test (NAAT)performed on the
[employer] platform.
Therapeutic Drug Monitoring
Random Vancomycin 18.3 ug/ml 12/19/24 09:18
[2024-12-19] MEDS: SUBLIMAZE 100 IV (12:10)
--- NOTE | 2024-12-19 12:22 | CON.GI ---
Consultation
-
Date/Time Consultation Performed: 12/19/24
Performing Provider: Xavier Neumann MD
Reason for Consultation: coffe grounds, anemia
Medical History
Chief Complaint / HPI
Chief Complaint: fatigue
History of Present Illness:
The patient is a 54-year-old male with past medical history as noted who presents with fatigue and palpitations. The patient is currently intubated and sedated and history is obtained from his . Over the past several days, likely a week has
been having increasing fatigue. Per his he was not having any other significant symptoms, denied any abdominal pain or gross bleeding. He is up-to-date with colonoscopy at [facility] around 4 years ago which was essentially
normal by report. He is overall been doing well, with good counts by report on HAART. 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 Upon
presentation to the emergency room he was found to have a hemoglobin of 3.3 with an MCV of 138. WBC 29.4, platelets 284. INR was 1.26, LFTs in the thousands with bilirubin of 7.2 which was mostly indirect. He received blood transfusion with
reaction which prompted intubation. After intubation he had an OG tube placed that showed initial coffee-ground's then black material. He has been hypotensive here, currently on pressors.
Past Medical History
Past Medical History: Other (HIV on HAART, hypertension, BPH, Kaposi's with diagnosis of HIV in 2020, abdominal hernia)
Past Surgical History: None
Social History
Tobacco: Non-Smoker
Family History
Family History: Reviewed & Not Pertinent
Allergies / Home Medications
Allergy/AdvReac Type Severity Reaction Status Date / Time
No Known Allergies Allergy Verified 12/18/24 14:08
�Medication �Instructions �Recorded
ascorbic acid (vitamin C) (Vitamin 1 g PO DAILY Supplement 12/18/24
C oral powder)
bictegravir 50 mg-emtricitabine 1 tab PO DAILY HIV 12/18/24
200 mg-tenofovir alafenam 25 mg
tablet (Biktarvy)
finasteride 1 mg tablet 1 mg PO DAILY Urinary Issue 12/18/24
lisinopril 20 1 tab PO DAILY Blood Pressure 12/18/24
mg-hydrochlorothiazide 12.5 mg
tablet
loperamide 2 mg tablet 2 mg PO Q6HPRN PRN diarrhea 12/18/24
loratadine 10 mg tablet 10 mg PO DAILYPRN PRN alleriges 12/18/24
minoxidil 2.5 mg tablet 2.5 mg PO DAILY HAIR GROWTH 12/18/24
olopatadine 0.2 % eye drops (Eye 1 drp BOTH EYES DAILYPRN PRN 12/18/24
Allergy Itch Relief) allergies
Review of Systems
-
All other systems: A 12 pt ROS was Negative except as stated above in HPI
Vital Signs
Temp Pulse Resp BP Pulse Ox
98.4 F 84 30 112/55 100
12/19/24 12:15 12/19/24 12:15 12/19/24 12:15 12/19/24 12:15 12/19/24 12:15
Physical Exam
Exam
General: NAD, sedated and intubated
HEENT: MMM, icteric, no lymphadenopathy
Heart: Regular, no murmurs
Lungs: CTA anteriorly bilaterally
Abdomen: normal bowel sounds, soft, mild right-sided tenderness, no rebound or guarding, no masses, bruits or ascites, small abdominal wall hernia
Extremeties: no edema
Skin: no rashes
Rectal exam with scant yellow stool.
Results
WBC 34.7 10^3/uL (4.8-10.8) H 12/19/24 09:58
Hgb 4.9 g/dL (13.0-18.0) L* D 12/19/24 09:58
Hct 12.7 % (39.0-52.0) L* 12/19/24 09:58
MCV 119.8 fL (80.0-94.0) H D 12/19/24 09:58
Plt Count 133 10^3/uL (130-400) D 12/19/24 09:58
Absolute Neuts (auto) Cancelled 12/19/24 06:00
PT 16.3 Sec (11.4-14.6) H 12/18/24 14:11
INR 1.26 12/18/24 14:11
Sodium 138 mmol/L (135-145) 12/19/24 09:18
Potassium 5.5 mmol/L (3.5-5.1) H 12/19/24 09:18
Chloride 104 mmol/L (98-107) 12/19/24 09:18
Carbon Dioxide 8 mmol/L (22-30) L* 12/19/24 09:18
BUN 79 mg/dl (9-20) H 12/19/24 09:18
Creatinine 2.7 mg/dL (0.7-1.3) H 12/19/24 09:18
Calcium 8.0 mg/dl (8.4-10.2) L 12/19/24 09:18
Total Bilirubin Cancelled 12/19/24 10:46
AST 1087 U/L (17-59) H* 12/19/24 09:18
ALT 775 U/L (0-50) H* 12/19/24 09:18
Alkaline Phosphatase 60 U/L (38-126) 12/19/24 09:18
Lipase 94 U/L (23-300) 12/18/24 14:00
Diagnostic Image Results:
CT:
IMPRESSION: There are multiple top normal to slightly enlarged lymph nodes present within the left lower neck, and the upper chest wall bilaterally. Prominent lymph nodes are also seen within the superior mediastinum. These nodes are nonspecific,
and could be reactive inflammatory lymph nodes in this patient with a history of HIV, although neoplastic lymph nodes are also possible.
Slightly prominent lymph nodes in the pelvis, adjacent to the internal iliac vessels, again nonspecific, statistically most likely reactive inflammatory nodes.
Coronary artery calcifications are present. Please correlate with symptoms of and risk factors for coronary artery disease, with further workup as clinically appropriate.
Moderate elevation right hemidiaphragm. Mild patchy atelectasis in both posterior lungs. No evidence of consolidation to suggest pneumonia. No evidence for groundglass or small airway opacities to suggest opportunistic infection.
Large calcified gallstone. No CT findings to suggest acute cholecystitis. No evidence for biliary ductal dilation.
In the midline upper abdominal wall, small abdominal wall defect with herniation of fat. No evidence for inflammation/edema of the herniated fat.
Prior GI Procedures:
EGD:
Colonoscopy:
Assessment / Plan
-
1. Severe anemia: most consistent with underlying hematological disorder given severe macrocytosis,Elevated indirect bilirubin. He did have coffee grounds initially after OG tube placement though no red blood, and dark material now that lavage is
clear easily. His coffee-ground material is likely from NG tube trauma, less likely major source of blood loss, especially given rectal exam with scant bright yellow stool. Hematology has been consulted and seen. He has received further blood
transfusion and last hemoglobin was 4.9. At this point with OG tube lavage clearing easily, mostly with coffee grounds, doubt significant active brisk GI bleeding. Would continue PPI and close observation, continued care per critical care and
hematology. Will plan eventual endoscopy when resuscitated, sooner if signs of brisk active bleeding.
2. Elevated LFTs: In a marked necroinflammatory pattern, with indirect hyperbilirubinemia. Necroinflammatory pattern likely secondary to shock/low flow. No reports of acetaminophen recently though will check acetaminophen level, hepatitis panel
as well as ultrasound with Dopplers and continue to trend for now. Indirect hyperbilirubinemia likely related to underlying hematological disorder.
I discussed with the patient's and critical care at length.
-
-
Thank you for consultation and allowing me to participate in the patient's care. Please call the confidential secretary GI physician during the after hours with any questions or concerns.
[2024-12-19 12:32] LABS: B.E. -9.2 mmol/L; PCO2 20 mmHg (35-48); PO2 155 mmHg (83-108); pH 7.46 (7.35-7.45)
--- NOTE | 2024-12-19 12:33 | PTCARENOTE ---
third unit completed, fourth unit PRBC initiated(sent up from blood bank in cooler on ice with third unit). GI in, patient with increased nonverbal pain cues with abdomen palpation. ngt continues to drain coffee grounds. medicated with prn fentanyl
bolus. gtt initiated. patient follows commands, gives 'thumbs up' to questions. lungs with coarse breath sounds. labs sent, pending results. construction specialist at bedside. updated. no signs transfusion reaction. patient skin color less ashen, jaundiced
[2024-12-19 12:35] LABS: HCO3 14.2 mmol/L (21-28)
[2024-12-19 12:42] LABS: Lactic Acid 10.7 mmol/L (0.7-2.0)
[2024-12-19 13:13] LABS: Acetaminophen < 10 ug/ml (10-30)
--- NOTE | 2024-12-19 14:08 | CM ---
CM following re: discharge planning.
Reviewed pt's chart, met with pt and pt's spouse at bedside.
Pt is a 54 year old anemia. Patient is currently intubated and sedated and history is obtained from his spouse.
Pt and his spouse live together in an apartment 2nd floor, FF of steps to enter. 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
PCP: pt's spouse stated pt sees NATASHA ESPINOZA at [facility].
Pharmacy: [facility]
D/C plan: uncertain at this time and will de[end on pt's progress.
CM will follow with discharge plan updates as hospitalization progresses.
[2024-12-19 14:15] LABS: Folate > 20.0 ng/ml (2.76-20); Vitamin B12 713 pg/ml (239-931)
[2024-12-19] MEDS: FLUSH (NSS) 1 FLUSH IV (14:39)
--- NOTE | 2024-12-19 14:47 | CON.ID ---
Consultation
-
Date/Time Consultation Requested: 12/18/20242045
Date/Time Consultation Performed: 12/19/2024 1350
Requesting Provider: ROBYN Grimes
Performing Provider: Dr. Hanley
Reason for Consultation: Clinical sepsis
Chief Complaint / Past History
History of Present Illness
Enrique Howard is a 54-year-old male with significant past medical history of HIV (Dx 2VL=22; CY1=113; Biktarvy) and Kaposi's sarcoma being evaluated at the request of Mely Ovalle regarding clinical sepsis. History is obtained from chart
review, records review scanned into the hospital system from his outpatient physicians, and history obtained from a friend. The patient currently is intubated and cannot provide any meaningful history for me.
The patient was in his usual state of health until earlier this week when he reportedly became more fatigued, although the patient's friend at the bedside reports that he may have been ill for a week or 2 longer. He called out of work 2 days ago
and stayed in bed the majority of the day. Yesterday a.m. he felt his heart pounding and called EMS, although when they arrived he refused transportation to the hospital. Finally, a friend arrived and ultimately convinced him to come to the
hospital, and he was transported in.
Once here, he was found to have profound anemia (Hb = 3.3). Additionally, he was found to have a lactic acidosis and an elevated bilirubin. Since admission, he developed hypotension requiring the addition of pressor therapy (currently on 3
pressors), and has been intubated.
According to the family friend, there has been no recent fevers or chills. No history of pain. No history of diarrhea. An NG tube was placed here in the ICU with the finding of coffee-ground gastric contents.
Past History
Additional Past Medical History:
HIV
HIV Dx Date : 02/24/2021
CD4 Efrain : 208
OI Hx : Kaposi's sarcoma
OI Prophylaxis : None
Known Resistance : ?
HLA [id number] : Unknown
ART Hx : Biktarvy
HTN
BPH
HCV (dx 2011; Harvoni 2015)
Past Surgical History: None
Allergy History:
No Known Allergies Allergy (Verified 12/18/24 14:08)
Medications Reviewed: Yes
Current Antibiotics:
Zosyn 3.375 g IV every 6 hours
Vancomycin (dosing per pharmacy)
Social History
Tobacco: Non-Smoker
Alcohol: None
Drug: Former User
Personal:
Living: With Family
Employment: Employed
Family History
Family History: Not Pertinent
Review of Systems
Vital Signs
Temp Pulse Resp BP Pulse Ox
98.6 F 84 30 100/53 100
12/19/24 13:31 12/19/24 14:15 12/19/24 14:15 12/19/24 13:31 12/19/24 14:15
Physical Exam
Physical Exam
Constitutional: Acutely Ill and Toxic
Head: Normocephalic
Eyes: Pupils Equal, Pupils Round, No Conjunctival Hemorrhage and Other (Scleral icterus noted)
Oral: No Thrush, No Ulcers and Other (ET tube in place.)
Cardiovascular: Regular Rate (Tachycardic) and S1/S2; Negative S3/S4 or Murmur
Pulmonary: Coarse; Negative Wheezes or Rales
Gastrointestinal: Soft, Non Distended, Decreased Bowel Sounds, No Rebound and No Guarding
Genito-Urinary: Singletary and Clear Urine; Negative Turbid Urine
Extremities: Negative Edema, Cyanosis or Erythema
Skin: Warm, Dry and Jaundice
Neurological: Other (Sedated on vent)
Psychological: Calm
Lab / Diagnostic Study Results
12/19/24 09:58
Abs Immat Gran (auto) Cancelled 12/19/24 06:00
Absolute Neuts (auto) Cancelled 12/19/24 06:00
Absolute Lymphs (auto) Cancelled 12/19/24 06:00
Absolute Monos (auto) Cancelled 12/19/24 06:00
Absolute Basos (auto) Cancelled 12/19/24 06:00
Immature Gran % Cancelled 12/19/24 06:00
Neutrophils % Cancelled 12/19/24 06:00
Lymphocytes % Cancelled 12/19/24 06:00
Monocytes % Cancelled 12/19/24 06:00
Eosinophils % Cancelled 12/19/24 06:00
Basophils % Cancelled 12/19/24 06:00
PT 16.3 Sec (11.4-14.6) H 12/18/24 14:11
INR 1.26 12/18/24 14:11
Lactic Acid 10.7 mmol/L (0.7-2.0) H* 12/19/24 11:50
Ur Squamous Epith Cells 3-5 /LPF (Few) 12/18/24 21:24
Microbiology Results
Micro:
12/18/24 22:36 MRSA Screen - Pending
Nose
12/18/24 21:24 Urine Culture - Pending
Urine
12/18/24 18:40 Blood Culture - Pending
Blood/Venous
12/18/24 18:41 Blood Culture - Pending
Blood/Venous
12/18/24 14:14 Influenza Types A & B (DANIEL) - Final
Nasal Swab Negative for Influenza A & B, NAAT
Negative results must be combined with clinical observations
and patient history.
Nucleic Acid Amplification test (NAAT)performed on the
[employer] platform.
Imaging:
12/18/2024 CT chest/abdomen/pelvis: Multiple top normal to slightly enlarged lymph nodes present within the left lower neck and upper chest wall bilaterally. Moderate elevation of the right hemidiaphragm with mild patchy atelectasis in both
posterior lungs. No consolidation to suggest pneumonia. Please see full dictation for additional detail.
Assessment / Plan
Profound anemia
Hypotension; on 3 pressors
Leukocytosis
Lactic acidosis
Hyperbilirubinemia
GOVIND
HIV
HTN
BPH
HCV
Recommendations:
At this time, the etiology of the patient's profound anemia is not clear. Patient has been evaluated by [facility], and autoimmune hemolytic anemia is a possibility.
Agree with holding Biktarvy for now given the patient's lactic acidosis (cannot currently rule out NNRTI induced lactic acidosis) along with GOVIND.
Continue empiric zosyn for today. D/C further vanco.
Will check Parvovirus B19 PCR
Follow WBC / temps.
Follow pending cultures.
Trend LFTs, Hb,
Continue with supportive measures, including the use of pressor therapy to maintain MAP >= 65
Further recommendations as additional data is returned.
Care Review
Plan reviewed with: Physician (Critical Care)
--- NOTE | 2024-12-19 15:00 | PTCARENOTE ---
patient with increased cpot/RASS, hiccoughs. feantyl bolus administered, gtt adjustments per work list. Dr Hanley at bedside. orders pending
--- NOTE | 2024-12-19 15:18 | CHAP ---
Emotional and spiritual support provided on and off through the day. Prayer blanket provided. Note, Mr. Howard and Mr. Fisher's friend, Janice, is a volunteer manager planning as well. Will follow.
[2024-12-19 15:57] LABS: B.E. -4.7 mmol/L; HCO3 16.5 mmol/L (21-28); O2 Saturation % 99.5 % (94-98); PO2 141 mmHg (83-108); pH 7.57 (7.35-7.45)
[2024-12-19 15:58] LABS: PCO2 18 mmHg (35-48)
[2024-12-19 16:06] LABS: Hemoglobin 6.8 g/dL (13.0-18.0); Mean Corp Hgb Conc. 35.8 g/dL (33.0-37.0); Mean Corpuscular Hgb 36.4 pg (27.0-31.0); Mean Corpuscular Volume 101.6 fL (80.0-94.0); Mean Platelet Volume 9.7 fL (7.4-10.4); Platelet Count 123 10^3/uL (130-400); Red Blood Cell Count 1.87 10^6/uL (4.70-6.10); Red Cell Dist. Width 26.9 % (11.5-14.5); White Blood Cell Count 30.3 10^3/uL (4.8-10.8)
[2024-12-19] MEDS: DECADRON 55 MG IV (16:14)
[2024-12-19 16:17] LABS: Alkaline Phosphatase 67 U/L (38-126); Blood Urea Nitrogen 81 mg/dl (9-20); Calcium 8.3 mg/dl (8.4-10.2); Carbon Dioxide 15 mmol/L (22-30); Chloride 103 mmol/L (98-107); Estimated Creatinine Clearance 42 ml/min; Glucose 237 mg/dl (70-99); Potassium 4.4 mmol/L (3.5-5.1); Sodium 138 mmol/L (135-145); Total Bilirubin 7.1 mg/dl (0.2-1.3); Total Protein 6.7 g/dl (6.3-8.2); eGFR 37.18
[2024-12-19 16:20] LABS: % Basophils 0.7 % (0-2); % Eosinophils 0.2 % (0-6); % Immature Granulocytes 8.9 % (0-0.5); % Lymphocytes 5.3 % (20.5-51.1); % Monocytes 3.4 % (1.7-9.3); % Neutrophils 81.5 % (42.2-75.2); Absolute Basophils 0.2 10^3/uL (0-0.2); Absolute Eosinophils 0.1 10^3/uL (0-0.7); Absolute Immature Granulocytes 2.7 10^3/uL (0-0.05); Absolute Lymphocytes 1.6 10^3/uL (1.2-3.4); Absolute Neutrophils 24.7 10^3/uL (1.4-6.5); Normal RBC Morphology No; Nucleated Red Blood Cells % 80.7 % (-)
[2024-12-19 16:21] LABS: Anisocytosis 2+; Macrocytosis 1+; Microcytosis 1+
[2024-12-19 16:22] LABS: Lactic Acid 7.5 mmol/L (0.7-2.0); Polychromasia 2+
[2024-12-19] MEDS: DIPRIVAN 100 IV ×2 (16:24→22:13)
[2024-12-19 16:28] LABS: ALT (SGPT) 2146 U/L (0-50)
[2024-12-19 16:34] LABS: Glucose - Point of Care 251 mg/dl (70-99)
--- NOTE | 2024-12-19 16:35 | PTCARENOTE ---
Addendum entered by Cara Melton RN 12/19/24 16:55:
order received for additional unit PRBC. d/w pharmacist, per MD pre medication not required
Original Note:
patient reassessed. multiple prn doses fentanyl per NOV, gtt adjusted. breath sounds coarse bilaterally. ngt continues to drasin coffee ground fluid. labs sent. power operator updated with results. vent changes made by RT, other orders pending. drawn
prior to dexamethasone administered. accu check repeated, d/w pharmacist. notified of elevated glucose
[2024-12-19] MEDS: NOVOLOG FLEXPEN-LOW RESISTANCE 3 UNITS SC (16:38)
[2024-12-19 16:53] LABS: AST (SGOT) 3478 U/L (17-59)
[2024-12-19 17:39] LABS: B.E. -2.8 mmol/L; HCO3 20.6 mmol/L (21-28); O2 Saturation % 99.5 % (94-98); PCO2 29 mmHg (35-48); PO2 129 mmHg (83-108); pH 7.46 (7.35-7.45)
[2024-12-19] MEDS: SOLU-CORTEF 50 MG IV (17:40)
[2024-12-19 18:25] LABS: Glucose - Point of Care 224 mg/dl (70-99)
[2024-12-19] MEDS: NOVOLOG FLEXPEN-LOW RESISTANCE 2 UNITS SC (18:26)
[2024-12-19 18:35] LABS: Hepatitis B Surface Antigen Negative (Negative)
--- NOTE | 2024-12-19 18:38 | PTCARENOTE ---
PRBC transfusing without signs reaction. levophed wean per work list. Tidal Volume changes per orders by RT
[2024-12-19 18:54] LABS: Hepatitis A Antibody, Total Positive (Negative); Hepatitis B Surface Antibody Positive; Hepatitis C Antibody Negative (Negative)
[2024-12-19 18:57] LABS: Hepatitis B Core Ab, Total Negative (Negative)
--- NOTE | 2024-12-19 20:00 | PTCARENOTE ---
on assessment pt intubated and sedated, at bedside, pt slightly restless in bed, PRN meds given see SNEHA, SR on the monitor, R radial Jerrica in place and zeroed, 7.5 ETT 24 at the lip, 18/450/40%/5, scant secretions noted, pulse ox 100%, NPO,
R nare NGT to kelly KOROMA for critical Is&Os, R subclavian central line infusing with Levo, Vaso, Fen, Prop gtt per orders, H&H due to 1999
[2024-12-19 20:16] LABS: Hepatitis A IgM Antibody Negative (Negative); Hepatitis B Core Ab, IgM Negative (Negative)
[2024-12-19 20:29] LABS: Hematocrit 19.3 % (39.0-52.0); Hemoglobin 6.8 g/dL (13.0-18.0)
[2024-12-19 20:34] LABS: Lactic Acid 2.3 mmol/L (0.7-2.0)
[2024-12-19] MEDS: VANCOCIN 150 IV (20:58)
[2024-12-19] MEDS: NSS (PRESERVATIVE FREE) 10 ML IV (20:59)
[2024-12-19] MEDS: PROTONIX IV 40 MG IV (20:59)
[2024-12-19 21:29] LABS: Glucose - Point of Care 204 mg/dl (70-99)
[2024-12-19] MEDS: NOVOLOG FLEXPEN 2 UNITS SC (21:41)
[2024-12-19] MEDS: CALCIUM GLUCONATE 100 IV (22:49)
[2024-12-19 23:14] LABS: B.E. 2.5 mmol/L; HCO3 26.1 mmol/L (21-28); PCO2 35 mmHg (35-48); PO2 122 mmHg (83-108); pH 7.48 (7.35-7.45)
--- NOTE | 2024-12-19 23:28 | PTCARENOTE ---
PRBCs ordered and infusing, appears to be no infusion reaction at this time
[2024-12-20] MEDS: SUBLIMAZE 100 IV ×3 (01:35→21:22)
[2024-12-20] MEDS: LEVOPHED 258 MG IV (01:54)
[2024-12-20] MEDS: PITRESSIN 100 IV (01:54)
[2024-12-20] MEDS: NOVOLOG FLEXPEN-MODERATE RESISTANCE 1 UNITS SC ×4 (02:01→11:53)
[2024-12-20 02:11] LABS: Glucose - Point of Care 181 mg/dl (70-99)
[2024-12-20 03:49] LABS: B.E. 0.5 mmol/L; HCO3 24.3 mmol/L (21-28); O2 Saturation % 99.8 % (94-98); PCO2 35 mmHg (35-48); PO2 118 mmHg (83-108); pH 7.45 (7.35-7.45)
[2024-12-20 03:50] LABS: O2 Therapy 40%
[2024-12-20 04:06] LABS: INR 1.93; PT 22.5 Sec (11.4-14.6)
[2024-12-20] MEDS: ZOSYN 50 IV ×2 (04:14→10:37)
[2024-12-20] MEDS: DIPRIVAN 100 IV ×4 (04:14→22:34)
[2024-12-20 04:25] LABS: Vancomycin Random 15.5 ug/ml
[2024-12-20 04:41] LABS: % Basophils 0.9 % (0-2); % Eosinophils 0.2 % (0-6); % Lymphocytes 4.7 % (20.5-51.1); % Monocytes 3.6 % (1.7-9.3); % Neutrophils 81.6 % (42.2-75.2); Absolute Basophils 0.2 10^3/uL (0-0.2); Absolute Eosinophils 0.1 10^3/uL (0-0.7); Absolute Immature Granulocytes 2.3 10^3/uL (0-0.05); Absolute Lymphocytes 1.2 10^3/uL (1.2-3.4); Absolute Monocytes 0.9 10^3/uL (0.1-0.6); Absolute Neutrophils 21.3 10^3/uL (1.4-6.5); Hematocrit 22.2 % (39.0-52.0); Hemoglobin 7.8 g/dL (13.0-18.0); Mean Corp Hgb Conc. 35.1 g/dL (33.0-37.0); Mean Corpuscular Hgb 35.3 pg (27.0-31.0); Mean Corpuscular Volume 100.5 fL (80.0-94.0); Nucleated Red Blood Cells % 126.1 % (-); Platelet Count 110 10^3/uL (130-400); Red Blood Cell Count 2.21 10^6/uL (4.70-6.10); Red Cell Dist. Width 26.8 % (11.5-14.5); White Blood Cell Count 26.1 10^3/uL (4.8-10.8)
[2024-12-20 04:50] LABS: Albumin 3.5 g/dl (3.5-5.0); Alkaline Phosphatase 66 U/L (38-126); Blood Urea Nitrogen 80 mg/dl (9-20); Carbon Dioxide 22 mmol/L (22-30); Chloride 109 mmol/L (98-107); Direct Bilirubin 2.6 mg/dl (0.0-0.4); Estimated Creatinine Clearance 42 ml/min; Glucose 164 mg/dl (70-99); Magnesium 2.6 mg/dl (1.6-2.3); Phosphorus 4.6 mg/dl (2.5-4.5); Potassium 5.3 mmol/L (3.5-5.1); Sodium 141 mmol/L (135-145); Total Bilirubin 4.8 mg/dl (0.2-1.3); Total Protein 6.4 g/dl (6.3-8.2); eGFR 37.18
[2024-12-20 04:54] LABS: Glucose - Point of Care 191 mg/dl (70-99)
--- NOTE | 2024-12-20 04:55 | PTCARENOTE ---
decreased urine output noted, attempted to flush and reposition catheter but no urine noted, bladder scanned for 503cc, NEW MEDIA STRATEGIST made aware, mendoza replaced and urine was noted.
[2024-12-20] MEDS: SOLU-CORTEF 50 MG IV ×2 (05:04)
[2024-12-20 05:08] VITALS: BMI 29.9
[2024-12-20 05:38] LABS: ALT (SGPT) 2633 U/L (0-50)
[2024-12-20 06:17] LABS: AST (SGOT) 3010 U/L (17-59)
--- NOTE | 2024-12-20 07:18 | W.PN.HOSP.TC ---
Today's Communication/Plan
-
vent mgmt pressor steroids as per ICU
abx as per ID
glycemic control
protonix BID
Assessment / Plan
Assessment / Plan
Physical Exam
General: Pallor resolved, no acute distress, appears comfortable
HEENT: NormoCephalic, Atraumatic, sclera icterus
Respiratory: Clear to auscultation, intubated
Cardiac: S1/S2, Regular Rhythm and Tachycardia
GI: abd Soft, Non Tender, seems distended, decreased bowel sounds
Musculoskeletal: No Clubbing, No Cyanosis and No Edema
Skin: No Rash
Neuro: sedated
54M HIV HAART, follows with [facility], HTN BPH p/w AMS weakness palpitations. Noted severely lethargic on arrival to ED, unresponsive, since improved (more awake alert conversant coherent) with IVF bolus though remained confused disoriented to place
and time, possible word finding difficulties. Sinus Tachy but otherwise VSS on room air, ED eval was also significant for severe Anemia Hgb 3.3 leukocytosis 29.4 and GOVIND Cr 2.5. No obvious signs of bleeding. Transfusions ordered however type and
screen noted ab's requiring blood from [place], transfusion delayed as a result. With tachycardia elevated white count hx HIV possible GOVIND, significant concern for severe sepsis opportunistic infection (though severe anemia would also likely
result in tachycardia and stress reactive Leukocytosis without infection). Patient admitted to ICU for closer monitoring. Patient in extremis by learning design specialist next day prompting intubation and emergent transfusion least incompatible blood.
#severe anemia hgb 3.3, hct 9.0
#Acute Respiratory Failure, Vent Dependent Resp Failure
#Lactic Acidosis likely 2/2/ severe anemia
#Hypovolemic Shock
Iron studies: appreciated
stool heme negative
- ICU admit
- Director Of Category Management consult appreciated
-Vent mgmt, pressor support, steroids as per ICU
- Patient positive for antibodies, blood bank coordinating care with [place] [facility]
- Least incompatible PRBCs emergently transfused with pre-treatment steroids, tylenol, and benadryl
- Hematology eval appreciated possible autoimmune hemolytic anemia contributing, cont steroids
#Coffee ground emesis following intubation NGT placement
#Shock Liver likely 2/2 severe anemia hypotension as above
-GI eval appreciated coffee ground emesis likely 2/2 NGT trauma, EGD performed 12/20/24 Esophagitis noted, no bleeding, cont IV protonix BID, avoid NSAIDs
- trend LFTs improving
#Possible septic shock unclear source
#Leukocytosis, Tachycardia
Head CT: Focus of decreased density within the white matter lateral to the frontal horn of the left lateral ventricle, measurements given above. This most likely represents an area of encephalomalacia, possibly from old infarction. A focal area of
demyelination is also possible. No evidence for acute intracranial hemorrhage. No evidence of mass effect with no midline shift.
Chest/Abd/Pel CT appreciated Lymphadenopathy neck chest wall pelvis likely reactive inflammatory nodes, possible neoplastic lymph nodes, coronary artery calcifications, no evidence pna, large gallstone w/o evidence cholecystitis or biliary ductal
dilation
- ID consult appreciated cont empiric zosyn, vanc discontinued
Troponin Elevation
likely Non-ischemic DE
ECHO appreciated EF 60-65% no regional wall motion abn's
#acute kidney injury
- Blood transfusions as above
- monitor renal function
- hold Biktarvy
#hyperbilirubinemia
- hold Biktarvy in setting of GOVIND and hyperbilirubinemia
#essential hypertension
- holding home antihypertensives due to shock as above
#BPH
- continue finasteride
#HIV
- hold Biktarvy in setting of GOVIND and hyperbilirubinemia
dvt ppx scd
gi ppx protonix
Full Code
Total Critical Care Time__50___ minutes. I was immediately available to the patient and staff. I personally examined, reviewed labs, diagnostic images/reports, interpretations, treatment plans, discussed patient care with other providers, entered
orders as appropriate and documented the medical record.
Anticipated Discharge: > 48 hours
Subjective/Interval History
-
Date of Service: December 20, 2024
Intubated sedated
Objective Data
-
Labs:
Laboratory Results
12/19/24 12/19/24 12/20/24
20:11 23:06 03:40
WBC
Hgb 6.8 L*
Hct 19.3 L*
Plt Count
PT 22.5 H
INR 1.93
HCO3 26.1
Sodium
Potassium
Chloride
Carbon Dioxide
BUN
Creatinine
Glucose
Calcium
Total Bilirubin
AST
ALT
Alkaline Phosphatase
12/20/24 12/20/24 12/20/24
03:41 06:00 10:00
WBC 26.1 H Cancelled
Hgb 7.8 L Cancelled
Hct 22.2 L Cancelled
Plt Count 110 L Cancelled
PT
INR
HCO3 24.3 Pending
Sodium 141
Potassium 5.3 H
Chloride 109 H
Carbon Dioxide 22
BUN 80 H
Creatinine 2.1 H
Glucose 164 H
Calcium 8.0 L
Total Bilirubin 4.8 H
AST 3010 H*
ALT 2633 H*
Alkaline Phosphatase 66
Vital Signs:
Vital Signs
Temp Pulse Resp BP Pulse Ox
99.6 F 63 18 118/65 100
12/20/24 03:37 12/20/24 06:15 12/20/24 06:15 12/19/24 22:24 12/20/24 04:00
I&O
12/19/24 12/20/24 12/21/24
06:59 06:59 06:59
Intake Total 0 / 0 3810.5 / 3810.5
Output Total 750 / 750 2730 / 2730
Balance -750 / -750 1080.5 / 1080.5
[2024-12-20] MEDS: PROTONIX IV 40 MG IV ×2 (07:38→20:30)
[2024-12-20] MEDS: AQUAMEPHYTON 51 MG IV (07:38)
[2024-12-20] MEDS: NSS (PRESERVATIVE FREE) 10 ML IV ×2 (07:38→20:30)
[2024-12-20] MEDS: LASIX 20 MG IV (07:38)
[2024-12-20] MEDS: MIRALAX 17 GRAMS TUBE (07:39)
[2024-12-20 08:15] LABS: Glucose - Point of Care 192 mg/dl (70-99)
--- NOTE | 2024-12-20 08:34 | W.PN.INTV ---
Today's Communication / Plan
Recommendations
See below
Assessment
-
54-year-old male with past medical history of HIV, hypertension, BPH currently being managed in the ICU for shock and severe anemia.
Last 24 Hours:
- Managed in ICU
- Central line and A-line placed on 12/19
- s/p 6 U unmatched pRBC
- WBC 26.1 (downtrending), Hgb 7.8, Plt 110
- Na 141, K 5.3, BUN 80, Cr 2.1
- Lactic acid 2.3, glucose 164, Ca 8, Phos 4.6, Mag 2.6
- total bili 4.8, direct bili 2.6
- AST 3010, ALT 2633, Troponin I 0.560
-Patient still on sedation propofol 5 and fentanyl
#Acute respiratory failure with respiratory distress
Patient placed on vent on 12/19
Continue to monitor ABG
Continue daily chest x-rays
#Shock with lactic acidosis�possibly secondary to hypovolemia versus severe anemia
#Suspected autoimmune hemolytic anemia
Continue PT, Mag, CMP, CBC Q12
Status post 6 units of unmatched blood
Continue pressor support�currently on norepinephrine and vasopressin. Phenylephrine discontinued.
Continue to monitor hemoglobin with minimal blood draws
Status post bicarb pushes with improved pH
Continue vancomycin and Zosyn, pending cultures
Infectious disease on board, appreciate input
Elevated indirect bilirubin
Hold Biktarvy
Patient started on dexamethasone IV 20 mg daily and 50 mg of hydrocortisone with IV PPI
Hematology on board, appreciate input
Per GI, endoscopy may be performed within next 24 hours. Appreciate recommendations
Pending echo and EKG
#Elevated LFTs
Necroinflammatory pattern with elevated indirect bilirubin, likely secondary to shock
Pending hepatitis panel
Ultrasound with Doppler shows patent flow.
#GOVIND
#Hyperkalemia
Hold antihypertensives and continue IV fluids
Continue serial BMPs
Vitamin K given on 12/20
Single dose of IV 20 Lasix given for diuresis
Consider nephrology consult if no improvement
#History of HIV currently on HAART
Hold Biktarvy
After discussion with infectious disease at [facility], last viral load was undetectable and CD4 count was 367 in October
Infectious disease on board, appreciate input
#Hyperglycemia
Continue moderate sliding scale every 4 hours
Full code
Subjective Dataa
Subjective Data
Date of Service:
Date of Service: December 20, 2024
Patient intubated and stabilized in the ICU. Overnight given 1 more unit of unmatched blood. Patient weaned down to 2 pressors only. Vitals this morning 118/64, 96 pulse, 18 respirations, afebrile saturating 100%. Patient currently vented still.
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
Review of Systems
General: Unobtainable - Sedation
Objective Data
Data Reviewed
Vital Signs / I&O / Oxygen:
Vital Signs
Temp Pulse Resp BP Pulse Ox
98 F 61 18 118/64 100
12/20/24 07:28 12/20/24 07:38 12/20/24 06:15 12/20/24 07:38 12/20/24 07:46
Intake and Output
12/19/24 12/20/24 12/21/24
06:59 06:59 06:59
Intake Total 0 / 0 3810.5 / 3810.5
Output Total 750 / 750 2730 / 2730
Balance -750 / -750 1080.5 / 1080.5
SaO2 [A/C] 100
SaO2 100
Nasal Cannula flow liters per 2
minute
Physical Exam
General: Respiratory Distress
HEENT: Normocephalic and Anicteric
Cardiovascular: S1-S2
Respiratory: Clear
GI: Soft and Non Distended
Labs/Micro/Reports
Laboratory Results
12/19/24 12/19/24 12/19/24
09:18 11:50 15:47
PT
INR
pH 7.28 L 7.46 H 7.57 H
pCO2 21 L 20 L 18 L*
pO2 99 155 H 141 H
HCO3 9.9 L* 14.2 L* 16.5 L
O2 Delivery Level
12/19/24 12/19/24 12/20/24
17:32 23:06 03:40
PT 22.5 H
INR 1.93
pH 7.46 H 7.48 H
pCO2 29 L 35
pO2 129 H 122 H
HCO3 20.6 L 26.1
O2 Delivery Level
12/20/24 12/20/24
03:41 10:00
PT
INR
pH 7.45 Cancelled
pCO2 35 Cancelled
pO2 118 H Cancelled
HCO3 24.3 Cancelled
O2 Delivery Level 40% Cancelled
Microbiology
12/18/24 22:36 Nose MRSA Screen - Final
No Methicillin Resistant Staphylococcus aureus isolated.
12/18/24 18:40 Blood/Venous Blood Culture - Preliminary
Positive culture in progress
12/18/24 18:40 Blood/Venous Gram Stain - Preliminary
12/18/24 18:41 Blood/Venous Blood Culture - Preliminary
Positive culture in progress
12/18/24 18:41 Blood/Venous Gram Stain - Preliminary
12/18/24 14:14 Nasal Swab Influenza Types A & B (DANIEL) - Final
Negative for Influenza A & B, NAAT
Negative results must be combined with clinical observations
and patient history.
Nucleic Acid Amplification test (NAAT)performed on the
[employer] platform.
[2024-12-20] MEDS: DECADRON 60 MG IV (09:06)
--- NOTE | 2024-12-20 09:25 | PTCARENOTE ---
report received, assessments per work list. patient propofol decreased per orders for RASS -3. monitor nsr, right radial arterial with good waves, blood returns. right triple lumen with good blood returns. +3 anasarca, lasix administered. ETT
suctions for large amount thick white vidal sputum, large amount oral secretions. mendoza draining tea colored urine with out issue. abdomen distended. ngt placement verified. scant amount green drainage. restraints maintained for patient safety. spouse
updated at bedside.
[2024-12-20] MEDS: VANCOCIN 200 IV (09:35)
[2024-12-20] MEDS: SUBLIMAZE 50 MCG IV (10:35)
--- NOTE | 2024-12-20 11:18 | W.PN.ID1 ---
Date of Service
Date of Service: December 20, 2024
Today's Communication
Continue Zosyn. Discontinue further vancomycin.
Assessment / Plan
Profound anemia
Hypotension; on 3 pressors
Leukocytosis
Lactic acidosis; improved
Bacteremia with coagulase-negative staph; suspect contaminant
Hyperbilirubinemia
GOVIND
HIV
HTN
BPH
HCV
Recommendations:
At this time, the etiology of the patient's profound anemia is not clear. Patient has been evaluated by [facility], and autoimmune hemolytic anemia is a possibility.
Agree with holding Biktarvy. Although an unlikely contributor to patient's lactic acid (given rapid improvement), the patient currently has NG tube to suction and absorption may become in question. Will restart antiretroviral therapy when patient
more stable.
Continue empiric zosyn for today. D/C further vanco. Coag negative staph found on blood cultures
Will check Parvovirus B19 PCR
Follow WBC / temps.
Follow pending cultures.
Trend LFTs, Hb,
Continue with supportive measures, including the use of pressor therapy to maintain MAP >= 65. Pressors currently being weaned.
Further recommendations as additional data is returned.
Patient remains critically ill, vent dependent and in intensive care unit
����������������������������������������������������������
Chief Complaint
-: Clinical Sepsis and Other (Anemia. HIV positive.)
Subjective / Review of Systems
Patient seen and examined. Remains on vent at the present time, although pressors are being weaned.
Vital Signs / Physical Exam
Vital Signs
Vital Signs
Temp Pulse Resp BP Pulse Ox
99.5 F 96 18 118/64 100
12/20/24 11:07 12/20/24 10:30 12/20/24 10:30 12/20/24 07:38 12/20/24 10:30
Physical Exam
Constitutional: Acutely Ill and Non-toxic
Head: Normocephalic
Cardiovascular: Regular Rate (Tachycardic) and S1/S2; Negative S3/S4 or Murmur
Pulmonary: Coarse and Other (ET tube in place.); Negative Wheezes or Rales
Gastrointestinal: Soft, Non Distended, Decreased Bowel Sounds, No Rebound and No Guarding
Genito-Urinary: Singletary and Clear Urine; Negative Turbid Urine
Extremities: Negative Edema, Cyanosis or Erythema
Skin: Warm and Dry
Neurological: Other (Sedated on vent)
Psychological: Calm
Objective Data
Lab Data
PT 22.5 Sec (11.4-14.6) H 12/20/24 03:40
INR 1.93 12/20/24 03:40
Estimated Creat Clear 42 ml/min 12/20/24 03:41
Lactic Acid 2.3 mmol/L (0.7-2.0) H 12/19/24 20:11
Total Bilirubin 4.8 mg/dl (0.2-1.3) H 12/20/24 03:41
AST 3010 U/L (17-59) H* 12/20/24 03:41
ALT 2633 U/L (0-50) H* 12/20/24 03:41
Alkaline Phosphatase 66 U/L (38-126) 12/20/24 03:41
Most recent labs reviewed.
Micro Results:
12/18/24 18:41 Blood Culture - Preliminary
Blood/Venous Coagulase neg. staphylococcus
Gram Stain - Preliminary
12/18/24 18:40 Blood Culture - Preliminary
Blood/Venous Coagulase neg. staphylococcus
Gram Stain - Preliminary
12/18/24 21:24 Urine Culture - Final
Urine NO GROWTH
12/18/24 22:36 MRSA Screen - Final
Nose No Methicillin Resistant Staphylococcus aureus isolated.
12/18/24 14:14 Influenza Types A & B (DANIEL) - Final
Nasal Swab Negative for Influenza A & B, NAAT
Negative results must be combined with clinical observations
and patient history.
Nucleic Acid Amplification test (NAAT)performed on the
[employer] platform.
Imaging:
12/18/2024 CT chest/abdomen/pelvis: Multiple top normal to slightly enlarged lymph nodes present within the left lower neck and upper chest wall bilaterally. Moderate elevation of the right hemidiaphragm with mild patchy atelectasis in both
posterior lungs. No consolidation to suggest pneumonia. Please see full dictation for additional detail.
--- NOTE | 2024-12-20 11:44 | CM ---
CM following re: discharge planning.
Discussed in Rounds, reviewed pt's chart, met with pt.
Per Rounds meeting, pt intubated yesterday, remains intubated, continue supportive care.
Pt lives with spouse Alexandro in an apartment 2nd floor, FF of steps to enter and pt was independent LOSS PREVENTION/SAFETY DISTRICT MANAGER.
D/C plan: uncertain at this time and will de[end on pt's progress.
CM will follow with discharge plan updates as hospitalization progresses.
[2024-12-20 11:58] LABS: Glucose - Point of Care 171 mg/dl (70-99)
--- NOTE | 2024-12-20 12:16 | PTCARENOTE ---
reassessed. this program writer noted areas discoloration left fifth toe and lateral foot and right fourth toe. areas pulse. feet warm with good pulses. road oiling truck driver updated at bedside to evaluate. orders received. areas marked with sharpie. wound consult
entered for photos for chart to monitor. patient arousable with sedation per work list. vasopressin off, weaning levophed. blood glucose reported to road oiling truck driver and pharmacist
--- NOTE | 2024-12-20 14:35 | PTCARENOTE ---
labs sent. noted that hospitalist d/c zosyn order, per ID note the zosyn to continue. spoke with ID, updated re d/c of antibiotics
[2024-12-20 14:44] LABS: Reticulocyte Count 12.3 % (0.4-2.8)
[2024-12-20 14:47] LABS: Hematocrit 22.2 % (39.0-52.0); Hemoglobin 7.8 g/dL (13.0-18.0); Mean Corp Hgb Conc. 35.1 g/dL (33.0-37.0); Mean Corpuscular Hgb 35.3 pg (27.0-31.0); Mean Corpuscular Volume 100.5 fL (80.0-94.0); Red Blood Cell Count 2.21 10^6/uL (4.70-6.10); Red Cell Dist. Width 28.9 % (11.5-14.5)
[2024-12-20 14:54] LABS: INR 1.68
[2024-12-20 14:59] LABS: Albumin 3.4 g/dl (3.5-5.0); Alkaline Phosphatase 66 U/L (38-126); Blood Urea Nitrogen 79 mg/dl (9-20); Calcium 7.5 mg/dl (8.4-10.2); Carbon Dioxide 22 mmol/L (22-30); Chloride 110 mmol/L (98-107); Estimated Creatinine Clearance 45 ml/min; Glucose 120 mg/dl (70-99); Magnesium 2.6 mg/dl (1.6-2.3); Potassium 4.4 mmol/L (3.5-5.1); Sodium 142 mmol/L (135-145); Total Protein 6.2 g/dl (6.3-8.2); eGFR 39.42
[2024-12-20 15:12] LABS: ALT (SGPT) 2211 U/L (0-50)
--- NOTE | 2024-12-20 15:15 | WOUNDNOTE ---
WOC RN NOTE: Pictures of ischemic discoloration taken of patients feet per RN request. Will sign off.
[2024-12-20 15:20] LABS: Mean Platelet Volume 10.8 fL (7.4-10.4); Platelet Count 79 10^3/uL (130-400)
[2024-12-20 15:21] LABS: AST (SGOT) 1609 U/L (17-59)
[2024-12-20 15:33] LABS: Absolute Neutrophils -Man Diff 24.3 10^3/uL (1.4-6.5); Band Neutrophils 8 % (0-3); Lymphocytes 5 % (20-51); Metamyelocytes 6 % (-); Monocytes 3 % (2-9); Myelocytes 2 % (-); Normal RBC Morphology No; Nucleated Red Blood Cells 169 (-); Platelets Checked Yes; Segmented Neutrophils 76 % (42-75)
[2024-12-20 15:34] LABS: Anisocytosis 2+; Macrocytosis 2+; Polychromasia 2+; Total Cells Counted 100
[2024-12-20] MEDS: NOVOLOG FLEXPEN-MODERATE RESISTANCE SC ×2 (15:40→20:29)
[2024-12-20 15:45] VITALS: BP 144/89
[2024-12-20 15:51] LABS: Glucose - Point of Care 140 mg/dl (70-99)
--- NOTE | 2024-12-20 16:23 | PTCARENOTE ---
reassessed, complete care given. lungs with coarse tubular breath sounds, diminished right base. patient became anxious after care, turning. denies discomfort. propofol adjustment per work list. levophed weaned to off
--- NOTE | 2024-12-20 18:09 | PTCARENOTE ---
bedside EGD completed by Dr Smith. ngt advance to [address] Smith post procedure, to maintain@LIS. patient tolerated well.
[2024-12-20 20:40] LABS: Glucose - Point of Care 143 mg/dl (70-99)
--- NOTE | 2024-12-20 21:32 | PTCARENOTE ---
Handoff report received from off going RN. Patient received on mechanical ventilation and on propofol at 15 mcg/kg/min and Fentanyl gtt at 100 mcg/hr. Plan of care for the shift reviewed with the patient and his partner. Propofol decreased to 5
mcg/kg/min to assess the patient. Pt's awake and following simple commands. Became restless and fighting the ventilation. Calming measures utilized. HR 115, SBP 170s, RR 24. Propofol titrated back to 15 mcg/min after 20 minutes. Patient suctioned
for a moderate amount of thick sputum. +3 anasarca. Temp 99.7. Patient wiped with cool cloth and one placed on his forehead. Room temp adjusted, and excess blankets removed. Coarse/rhonchi breath sounds. #7 ETT at 24 at the lips. NGT placement
verified via auscultation. Abdomen is distended. Singletary catheter is draining tea colored urine.Singletary care completed. Mouth care provided. PAtient turned and repositioned. Family member remains at the bedside.
[2024-12-21] VITALS (16 sets, daily range): BP systolic 132–176; BP diastolic 80–139; BMI 29.6
[2024-12-21 00:06] LABS: Glucose - Point of Care 139 mg/dl (70-99)
[2024-12-21] MEDS: NOVOLOG FLEXPEN-MODERATE RESISTANCE SC ×4 (00:27→17:16)
--- NOTE | 2024-12-21 00:45 | PTCARENOTE ---
Patient reassessed. VSS. Remains on propofol at 15 mcg/kg/min. MAEx4. Midnight care provided. Patient repositioned and turned. bart urine output. Temp 98.5. Family remains at the bedside.
[2024-12-21 03:46] LABS: B.E. -1.5 mmol/L; HCO3 22.6 mmol/L (21-28); O2 Saturation % 99.6 % (94-98); PCO2 34 mmHg (35-48); PO2 112 mmHg (83-108); pH 7.43 (7.35-7.45)
--- NOTE | 2024-12-21 03:56 | PTCARENOTE ---
Pt's UOP was 5 ml at 0300. UOP has been adequate but trending down. APPLICATION CONSULTANT made aware and Lasix 20 mg IV ordered.
[2024-12-21 04:09] LABS: INR 1.45; PT 17.9 Sec (11.4-14.6)
[2024-12-21] MEDS: LASIX 20 MG IV (04:11)
[2024-12-21 04:12] LABS: Hematocrit 23.4 % (39.0-52.0); Mean Corp Hgb Conc. 34.2 g/dL (33.0-37.0); Mean Corpuscular Hgb 36.7 pg (27.0-31.0); Mean Corpuscular Volume 107.3 fL (80.0-94.0); Mean Platelet Volume 11.5 fL (7.4-10.4); Platelet Count 77 10^3/uL (130-400); Red Blood Cell Count 2.18 10^6/uL (4.70-6.10); Red Cell Dist. Width 32.1 % (11.5-14.5); White Blood Cell Count 30.6 10^3/uL (4.8-10.8)
[2024-12-21 04:31] LABS: Albumin 3.4 g/dl (3.5-5.0); Alkaline Phosphatase 71 U/L (38-126); Blood Urea Nitrogen 90 mg/dl (9-20); Calcium 8.4 mg/dl (8.4-10.2); Carbon Dioxide 26 mmol/L (22-30); Chloride 113 mmol/L (98-107); Estimated Creatinine Clearance 45 ml/min; Glucose 132 mg/dl (70-99); Magnesium 3.1 mg/dl (1.6-2.3); Potassium 5.3 mmol/L (3.5-5.1); Sodium 146 mmol/L (135-145); Total Bilirubin 4.3 mg/dl (0.2-1.3); Total Protein 6.5 g/dl (6.3-8.2); eGFR 39.42
[2024-12-21] MEDS: SUBLIMAZE 50 MCG IV ×4 (04:34→18:12)
[2024-12-21 04:52] LABS: ALT (SGPT) 2028 U/L (0-50); AST (SGOT) 961 U/L (17-59)
[2024-12-21 05:10] LABS: Band Neutrophils 6 % (0-3)
[2024-12-21 05:11] LABS: Lymphocytes 4 % (20-51); Monocytes 4 % (2-9); Normal RBC Morphology No; Platelets Checked Yes
[2024-12-21 05:13] LABS: Nucleated Red Blood Cells 214 (-)
[2024-12-21 05:14] LABS: Absolute Neutrophils -Man Diff 26.9 10^3/uL (1.4-6.5); Myelocytes 4 % (-); Segmented Neutrophils 82 % (42-75)
[2024-12-21 05:17] LABS: Anisocytosis 2+; Basophilic Stippling 1+; Macrocytosis 2+; Microcytosis 1+; Total Cells Counted 100
[2024-12-21 06:22] LABS: Glucose - Point of Care 137 mg/dl (70-99)
[2024-12-21] MEDS: DIPRIVAN 100 IV ×3 (06:33→18:01)
--- NOTE | 2024-12-21 07:08 | W.PN.HOSP.TC ---
Today's Communication/Plan
-
vent mgmt pressor steroids sedation as per ICU
abx as per ID
glycemic control while on steroids
Monitor LFts, renal function, H&H
Assessment / Plan
Assessment / Plan
Physical Exam
General: No Pallor, no acute distress, appears comfortable at this time
HEENT: NormoCephalic, Atraumatic, sclera icterus
Respiratory: Clear to auscultation, intubated
Cardiac: S1/S2, NSR
GI: abd Soft, Non Tender, seems distended, decreased bowel sounds
Musculoskeletal: No Clubbing, No Cyanosis and No Edema
Skin: No Rash
Neuro: sedated
54M HIV HAART, follows with [facility], HTN BPH p/w AMS weakness palpitations. Noted severely lethargic on arrival to ED, unresponsive, since improved (more awake alert conversant coherent) with IVF bolus though remained confused disoriented to place
and time, possible word finding difficulties. Sinus Tachy but otherwise VSS on room air, ED eval was also significant for severe Anemia Hgb 3.3 leukocytosis 29.4 and GOVIND Cr 2.5. No obvious signs of bleeding. Transfusions ordered however type and
screen noted ab's requiring blood from [facility], transfusion delayed as a result. With tachycardia elevated white count hx HIV possible GOVIND, significant concern for severe sepsis opportunistic infection (though severe anemia would also likely
result in tachycardia and stress reactive Leukocytosis without infection). Patient admitted to ICU for closer monitoring. Patient in extremis by milk treater next day prompting intubation and emergent transfusion least incompatible blood.
#severe anemia hgb 3.3, hct 9.0
#Acute Respiratory Failure, Vent Dependent Resp Failure
#Lactic Acidosis likely 2/2/ severe anemia
#Hypovolemic Shock
Iron studies: appreciated
stool heme negative
- ICU admit
- Cubing Machine Tender consult appreciated
-Vent mgmt, pressor support, steroids as per ICU
- Patient positive for antibodies, blood bank coordinating care with [facility]
- Least incompatible PRBCs emergently transfused with pre-treatment steroids, tylenol, and benadryl. Received total 6 PRBC least incompatible.
- Hematology eval appreciated possible autoimmune hemolytic anemia contributing, cont steroids
#Coffee ground emesis following intubation NGT placement
#Shock Liver likely 2/2 severe anemia hypotension as above
-GI eval appreciated coffee ground emesis likely 2/2 NGT trauma, EGD performed 12/20/24 Esophagitis noted, no bleeding, cont IV protonix BID, avoid NSAIDs
- trend LFTs improving
#Possible septic shock unclear source (Leukocytosis, Tachycardia)
Tachycardia since resolved with transfusions as above
Leukocytosis persists but likely steroid induced at this time
Head CT: Focus of decreased density within the white matter lateral to the frontal horn of the left lateral ventricle, measurements given above. This most likely represents an area of encephalomalacia, possibly from old infarction. A focal area of
demyelination is also possible. No evidence for acute intracranial hemorrhage. No evidence of mass effect with no midline shift.
Chest/Abd/Pel CT appreciated Lymphadenopathy neck chest wall pelvis likely reactive inflammatory nodes, possible neoplastic lymph nodes, coronary artery calcifications, no evidence pna, large gallstone w/o evidence cholecystitis or biliary ductal
dilation
- ID consult appreciated cont empiric zosyn, vanc discontinued
Troponin Elevation
likely Non-ischemic OK
ECHO appreciated EF 60-65% no regional wall motion abn's
#acute kidney injury
- Blood transfusions as above
- IVF as per ICU
- monitor renal function
- hold Biktarvy
#hyperbilirubinemia
- hold Biktarvy in setting of GOVIND and hyperbilirubinemia
#essential hypertension
- holding home antihypertensives due to shock as above
#BPH
- continue finasteride
#HIV
- hold Biktarvy in setting of GOVIND and hyperbilirubinemia
dvt ppx scd
gi ppx protonix
Full Code
Total Critical Care Time__40___ minutes. I was immediately available to the patient and staff. I personally examined, reviewed labs, diagnostic images/reports, interpretations, treatment plans, discussed patient care with other providers, entered
orders as appropriate and documented the medical record.
Anticipated Discharge: > 48 hours
Subjective/Interval History
-
Date of Service: December 21, 2024
Sedated Intubated.
Objective Data
-
Labs:
Laboratory Results
12/21/24 12/21/24
03:33 03:34
WBC 30.6 H
Hgb 8.0 L
Hct 23.4 L
Plt Count 77 L
PT 17.9 H
INR 1.45
HCO3 22.6
Sodium 146 H
Potassium 5.3 H
Chloride 113 H
Carbon Dioxide 26
BUN 90 H
Creatinine 2.0 H
Glucose 132 H
Calcium 8.4
Total Bilirubin 4.3 H
AST 961 H*
ALT 2028 H*
Alkaline Phosphatase 71
Vital Signs:
Vital Signs
Temp Pulse Resp BP Pulse Ox
98.2 F 63 18 119/65 100
12/21/24 03:35 12/21/24 04:11 12/20/24 18:00 12/21/24 04:11 12/21/24 04:00
I&O
12/20/24 12/21/24 12/22/24
06:59 06:59 06:59
Intake Total 3810.5 / 3868.4 1114.7 / 1114.7
Output Total 2730 / 2830 2541 / 2541
Balance 1080.5 / 1038.4 -1426.3 / -1426.3
--- NOTE | 2024-12-21 07:15 | PTCARENOTE ---
Patient had multiple liquid stools. FMS placed.
[2024-12-21] MEDS: PROTONIX IV 40 MG IV ×2 (08:31→19:57)
[2024-12-21] MEDS: NSS (PRESERVATIVE FREE) 10 ML IV ×2 (08:32→19:57)
[2024-12-21] MEDS: MIRALAX TUBE (08:32)
--- NOTE | 2024-12-21 08:40 | W.PN.ID1 ---
Date of Service
Date of Service: December 21, 2024
Today's Communication
Continue current antibiotics.
Assessment / Plan
Profound anemia
-Possibly secondary to autoimmune hemolytic anemia
Hypotension;
-Now off pressors
Leukocytosis
-Likely steroid effect; patient remains on Decadron
Lactic acidosis; improved
Bacteremia with coagulase-negative staph; suspect contaminant
Hyperbilirubinemia
GOVIND
HIV
-VL = 22; CD4 = 391; Biktarvy (currently on hold)
HTN
BPH
HCV
Recommendations:
At this time, the etiology of the patient's profound anemia is not clear. Patient has been evaluated by [facility], and autoimmune hemolytic anemia is a possibility.
Agree with holding Biktarvy. Although an unlikely contributor to patient's lactic acid (given rapid improvement), the patient currently has NG tube to suction and absorption may become in question.
- Will restart antiretroviral therapy when patient more stable.
Continue empiric zosyn for today.
Will check Parvovirus B19 PCR
Follow WBC / temps.
Follow pending cultures.
Trend LFTs, Hb,
Continue with supportive measures.
Further recommendations as additional data is returned.
Patient remains critically ill, vent dependent and in intensive care unit.
updated at the bedside.
����������������������������������������������������������
Chief Complaint
-: Clinical Sepsis and Other (Anemia. HIV positive.)
Subjective / Review of Systems
All Patient seen and examined. Remains on vent, although possible weaning trial today.
Review of Systems: No Fever
Vital Signs / Physical Exam
Vital Signs
Vital Signs
Temp Pulse Resp BP Pulse Ox
98.4 F 64 18 160/107 98
12/21/24 07:00 12/21/24 07:15 12/21/24 07:15 12/21/24 06:43 12/21/24 07:15
Physical Exam
Constitutional: Acutely Ill and Non-toxic
Head: Normocephalic
Cardiovascular: Regular Rate (Tachycardic) and S1/S2; Negative S3/S4 or Murmur
Pulmonary: Coarse and Other (ET tube in place.); Negative Wheezes or Rales
Gastrointestinal: Soft, Non Distended, Decreased Bowel Sounds, No Rebound and No Guarding
Extremities: Negative Edema or Erythema
Skin: Warm and Dry
Psychological: Agitated (Propofol has been stopped.)
Objective Data
Lab Data
Lab Results
12/21/24 03:34
12/21/24 03:34
PT 17.9 Sec (11.4-14.6) H 12/21/24 03:34
INR 1.45 12/21/24 03:34
Estimated Creat Clear 45 ml/min 12/21/24 03:34
Lactic Acid 2.3 mmol/L (0.7-2.0) H 12/19/24 20:11
Total Bilirubin 4.3 mg/dl (0.2-1.3) H 12/21/24 03:34
AST 961 U/L (17-59) H* 12/21/24 03:34
ALT 2028 U/L (0-50) H* 12/21/24 03:34
Alkaline Phosphatase 71 U/L (38-126) 12/21/24 03:34
Most recent labs reviewed.
Micro Results:
12/21/24 03:35 Blood Culture - Pending
Blood/Venous
12/18/24 18:41 Blood Culture - Preliminary
Blood/Venous Coagulase neg. staphylococcus
Gram Stain - Preliminary
12/18/24 18:40 Blood Culture - Preliminary
Blood/Venous Coagulase neg. staphylococcus
Gram Stain - Preliminary
12/18/24 21:24 Urine Culture - Final
Urine NO GROWTH
12/18/24 22:36 MRSA Screen - Final
Nose No Methicillin Resistant Staphylococcus aureus isolated.
12/18/24 14:14 Influenza Types A & B (DANIEL) - Final
Nasal Swab Negative for Influenza A & B, NAAT
Negative results must be combined with clinical observations
and patient history.
Nucleic Acid Amplification test (NAAT)performed on the
[employer] platform.
Imaging:
12/18/2024 CT chest/abdomen/pelvis: Multiple top normal to slightly enlarged lymph nodes present within the left lower neck and upper chest wall bilaterally. Moderate elevation of the right hemidiaphragm with mild patchy atelectasis in both
posterior lungs. No consolidation to suggest pneumonia. Please see full dictation for additional detail.
Care Review
Plan reviewed with: Nurse
--- NOTE | 2024-12-21 09:00 | PTCARENOTE ---
Report received from off going RN. Patient received on mechanical ventilation and on propofol at 25 mcg/kg/min and Fentanyl gtt at 100 mcg/hr. Plan of care for the shift reviewed with his partner. SAT at 0830. Pt's awake and following simple
commands but became restless and fighting the ventilator. HR to 140s, RR to 30s, SpO2 to 74%. Pt nodding when asked if SOB. Systems Architect notified and SAT/SBT stopped. Calming measures unsuccessful. Fentanyl bolus X2 over 40min to calm pt and return
VS to baseline. Patient suctioned for a moderate amount of thick white sputum. +2 anasarca. Afebrile. Coarse rhonchi breath sounds. #7.5 ETT at 24 at the lips. NGT placement verified via auscultation. Abdomen is distended. Singletary catheter is draining
tea colored urine. Singletary care completed. Mouth care provided. Patient turned and repositioned. Family member remains at the bedside.
[2024-12-21] MEDS: SUBLIMAZE 100 IV ×2 (09:02→19:59)
[2024-12-21] MEDS: DECADRON 60 MG IV (09:04)
--- NOTE | 2024-12-21 10:38 | W.PN.INTV ---
Today's Communication / Plan
Recommendations
-Failed SAT, SBT, start Precedex overnight, reattempt SAT and SBT in a.m.
-Chest x-ray and ABG in a.m.
-Repeat electrolytes, potassium level elevated today
-Continue tube feeding for now
Assessment
-
54-year-old gentleman was brought to the emergency room for weakness and lethargy, noted to have a hemoglobin of 3.3. He was admitted to the ICU for close monitoring. Due to extensive antibody profile, unmatched blood could not be found.
Overnight patient became more hypotensive, acidotic with rising lactate up to 15 along with respiratory distress. Due to nonavailability of match blood, emergent consent was obtained and a negative, unmatched blood transfusion was given followed by
intubation, mechanical ventilation and need for pressor therapy. On day 1, patient received total of 6 units of unmatched a negative PRBC units with significant improvement hemodynamically. Patient was not also noted to have acute kidney injury,
staph coagulase-negative bacteremia. Patient has known history of HIV.
Last 24 hours:
-Fluid balance, -1.3 L
-Hemoglobin has stayed stable after 6 units of PRBCs
-Liver function test continues to improve
-Hemoglobin stable at 8.0 this morning, white count elevated at 30,000, platelets gently drifting down to 77,000 today
-INR improved to 1.4, after 10 mg of IV vitamin K
-EGD performed 12/20, esophagitis and erythematous antral mucosa, no active bleeding noted
#1. Acute respiratory failure with respiratory distress
-This was primarily related to underlying severe lactic acidosis, severe symptomatic anemia, Shock and possibly concomitant sepsis
-s/p intubation on 12/19
-40% FiO2, 5 of PEEP today. Patient off pressors, SAT SBT was attempted but patient got very tachypneic tachycardic and hypoxic
-Back on volume AC, reattempt SAT/SBT on 12/22
-Start Precedex tonight and wean off propofol with the goal to extubate over next 24 hours
#2. Shock with severe lactic acidosis, suspect hypovolemic with severe symptomatic anemia
-s/p unmatched PRBCs
-Septic shock also in differential, continue antibiotics for now, ID service on case
-Lactic acid improved
-Off all pressors now. Patient was briefly on 3 pressors, since weaned off
-Off bicarb drip now, off stress dose steroids
#3. Severe anemia, symptomatic
-Considering appropriate iron stores and elevated MCV, acute blood loss was felt to be less likely, ? Hemolytic anemia. Prior history of anemia with Pomalidomide therapy
-S/p total 6 units transfused, at risk of delayed hemolysis as it was unmatched blood.
-Pre-treatment was given with Solu-Medrol, IV Tylenol and IV Benadryl prior to transfusion
-LDH elevated, haptoglobin is pending
-Liver imaging unremarkable
-Upper GI bleed was also a concern considering coffee-ground output from OG tube, s/p EGD on 12/20, esophagitis and antral mucosal erythema without active bleeding, PPI 40 twice daily
-Update: As per Blood bank, it may take weeks for availability of fully matched blood for the patient, in the meantime, will continue with current Rh-ve option
#4. Acute kidney injury, with hyperkalemia
-Suspect prerenal, also patient had been on lisinopril and hydrochlorothiazide
-Holding antihypertensives, responding to IV fluids, good urine output
-With hypotension and shock, ATN also in differential diagnosis
-Urine output good, Cr improving.
-Mild hyperkalemia likely related to large volume blood transfusion. Repeat labs later today
#5. History of HIV, diffuse lymphadenopathy on CT chest/abdomen
-Patient has been on Biktarvy, reported compliance
-12/19, Discussed with patient's infectious disease provider at [facility], last viral load was undetectable and CD4 count was more than 367 in October 2024
-Continue Zosyn, follow-up on cultures. Vancomycin on hold per ID. Positive blood cultures felt to be contaminant, coagulase-negative staph
-Infectious disease service on case
#6. Thrombocytopenia
-Has not been exposed to heparin
-Continue to trend
-Await further recommendations from hematology service
Critical Care time 35 mins -- The patient is admitted for acute critical illness for the treatment of vital organ failure and/or prevention of further life-threatening conditions. Total care includes time spent in review of history, physical exam,
medications, hemodynamic/ventilator parameters, laboratory data, imaging and discussion with house staff, pharmacy, respiratory therapy, splunk architect, and nursing.
Subjective Dataa
Subjective Data
Date of Service:
Date of Service: December 21, 2024
Chief Complaint: Mine Deputy Follow Up
Subjective:
Patient intubated, mechanically ventilated and sedated
Review of Systems
General: Unobtainable - Sedation
Objective Data
Data Reviewed
Vital Signs / I&O / Oxygen:
Vital Signs
Temp Pulse Resp BP Pulse Ox
98.4 F 125 30 160/107 90
12/21/24 07:00 12/21/24 08:49 12/21/24 08:49 12/21/24 06:43 12/21/24 08:49
Intake and Output
12/20/24 12/21/24 12/22/24
06:59 06:59 06:59
Intake Total 3810.5 / 3868.4 1114.7 / 1138.4 89.4 / 89.4
Output Total 2730 / 2830 2541 / 2541 110 / 110
Balance 1080.5 / 1038.4 -1426.3 / -1402.6 -20.6 / -20.6
SaO2 [A/C] 100
SaO2 90
Nasal Cannula flow liters per 2
minute
Physical Exam
General: Respiratory Distress
HEENT: Normocephalic and Anicteric
Cardiovascular: S1-S2
Respiratory: Clear
GI: Soft and Non Distended
Skin: Warm
Labs/Micro/Reports
Laboratory Results
12/20/24 12/21/24 12/21/24
14:30 03:33 03:34
PT 20.0 H 17.9 H
INR 1.68 1.45
pH 7.43
pCO2 34 L
pO2 112 H
HCO3 22.6
O2 Delivery Level
Microbiology
12/18/24 18:41 Blood/Venous Blood Culture - Preliminary
Coagulase neg. staphylococcus
12/18/24 18:41 Blood/Venous Gram Stain - Preliminary
12/18/24 18:40 Blood/Venous Blood Culture - Preliminary
Coagulase neg. staphylococcus
12/18/24 18:40 Blood/Venous Gram Stain - Preliminary
12/18/24 21:24 Urine Urine Culture - Final
NO GROWTH
12/18/24 22:36 Nose MRSA Screen - Final
No Methicillin Resistant Staphylococcus aureus isolated.
12/18/24 14:14 Nasal Swab Influenza Types A & B (DANIEL) - Final
Negative for Influenza A & B, NAAT
Negative results must be combined with clinical observations
and patient history.
Nucleic Acid Amplification test (NAAT)performed on the
[facility] platform.
[2024-12-21 11:24] LABS: Haptoglobin <10 mg/dL (30-200)
[2024-12-21 12:16] LABS: Glucose - Point of Care 126 mg/dl (70-99)
--- NOTE | 2024-12-21 13:59 | W.PN.ONC2 ---
Today's Communication / Plan
-
- hgb stable. continue to monitor CBC, hemolysis parameters.
Impression
Impression
Severe anemia with RDW greater than 30 macrocytosis due to significant reticulocytosis
Multiple antibodies obstructing crossmatch
Reactive leukocytosis
Upper GI bleed coffee grounds and NG tube
Hypotension
HIV
Shock
Rule out sepsis
Lactic acid 13
Plan
Plan
Review of the peripheral smear showed significant reticulocytosis without schistocytes or targets. Anemia work-up c/s with destructive process with high retic at 12.3%, T bili on presentation ~7 mostly indirect, elevated LDH. hapto pending. AYSE+,
awaiting specific antibody testing. no prior hx of transfusions.
possible element of GIB with coffee ground emesis however per no reported bleeding preceding weeks/months and pt first noted to have a new anemia on routine labs in Oct (value unknown). no substrate deficiencies, markedly high ferritin with
liver injury.
hx of recreational drug use however clean x 3 years. UDS negative. not aware of amyl nitrite (popper ) use.
received 6 units of least incompatible blood with good response, hgb up to 8.0 g/dl. T bili down trending suggesting no ongoing acute hemolysis.
CBC daily. transfuse for hgb < 7.0 g/dl. continue to premedicate with Benadryl, Tylenol and Solu-Medrol
new thrombocytopenia likely related to acute illness, shock liver. continue to monitor.
Continue ICU level support for multiorgan system failure.
Subjective/Objective
Chief Complaint
severe anemia, shock
Subjective
pt remains intubated. family at bedside. Hgb stable today at 8.0 g/dl s/p 6 units of least incompatible blood. T max 100.2. Pt remains on pressors which are slowly being weaned.
Vital Signs:
Vital Signs
Temp Pulse Resp BP Pulse Ox
98.4 F 89 18 162/108 93
12/21/24 07:00 12/21/24 12:00 12/21/24 12:00 12/21/24 12:00 12/21/24 12:00
Lab Results:
Laboratory Data
WBC 30.6 10^3/uL (4.8-10.8) H 12/21/24 03:34
Hgb 8.0 g/dL (13.0-18.0) L 12/21/24 03:34
Plt Count 77 10^3/uL (130-400) L 12/21/24 03:34
PT 17.9 Sec (11.4-14.6) H 12/21/24 03:34
INR 1.45 12/21/24 03:34
eGFR 39.42 12/21/24 03:34
Physical Exam
HEENT: Other (ET tube in place ); No Jaundice
Cardiology: Normal Sinus Rhythm
Pulmonary: Rales
GI: Soft; No Distended
Extremities: Edema (trace to 1+ diffuse)
Neuro: Other (intubated, sedated. )
Review of Systems
Review of Systems
unable to complete due to intubated, sedated
[2024-12-21 14:24] LABS: Hematocrit 24.7 % (39.0-52.0); Hemoglobin 8.4 g/dL (13.0-18.0); Mean Corpuscular Hgb 36.8 pg (27.0-31.0); Mean Corpuscular Volume 108.3 fL (80.0-94.0); Mean Platelet Volume 11.5 fL (7.4-10.4); Platelet Count 73 10^3/uL (130-400); Red Blood Cell Count 2.28 10^6/uL (4.70-6.10); Red Cell Dist. Width 30.8 % (11.5-14.5); White Blood Cell Count 34.4 10^3/uL (4.8-10.8)
[2024-12-21 14:27] LABS: AST (SGOT) 646 U/L (17-59); Albumin 3.5 g/dl (3.5-5.0); Alkaline Phosphatase 79 U/L (38-126); Blood Urea Nitrogen 106 mg/dl (9-20); Carbon Dioxide 27 mmol/L (22-30); Chloride 110 mmol/L (98-107); Estimated Creatinine Clearance 33 ml/min; Glucose 124 mg/dl (70-99); Potassium 4.9 mmol/L (3.5-5.1); Sodium 145 mmol/L (135-145); Total Bilirubin 5.4 mg/dl (0.2-1.3); Total Protein 6.4 g/dl (6.3-8.2)
[2024-12-21 14:36] LABS: ALT (SGPT) 1741 U/L (0-50); Calcium 8.6 mg/dl (8.4-10.2)
--- NOTE | 2024-12-21 14:48 | PTCARENOTE ---
Assessment unchanged. VSS. UOP borderline. Labs drawn as ordered with elevating creatinine. LR 1L bolus began as instructed by Sales Development Representative.
[2024-12-21] MEDS: LR 1000 IV ×3 (15:02→23:15)
--- NOTE | 2024-12-21 17:10 | PTCARENOTE ---
Assessment unchanged. UOP continues to be <30cc/hr. BMP ordered for 2100.
[2024-12-21 17:20] LABS: Glucose - Point of Care 129 mg/dl (70-99)
--- NOTE | 2024-12-21 18:35 | PTCARENOTE ---
Urine leaking around mendoza with scant UOP. Bladder scanned for >630cc. Attempted to flush mendoza unsuccessfully. Mendoza removed and replaced with 16F under sterile technique. 700cc tea colored urine out with large amount of brown sediment noted.
--- NOTE | 2024-12-21 19:49 | PTCARENOTE ---
Patient received in bed on mechanical ventilation, and on propofol at 30 mcg/kg/min, fentanyl gtt at 100 mcg/hr, and LR at 150 ml/hr. Propofol weaned down to 25 mcg/kg/min for assessment. Patient awake and restless. HR 105, RR 21. Pupils are +2 and
reactive. + pulses. Plan of care for the shift reviewed with the patient but he remained restless. Propofol titrated back to 30 mcg/kg/min. Coarse breath sounds. SpO2 at 98% on ventilator. #7.5 ETT at 24 at the lip on setting AC 18/+5/450/40%.
Patient suctioned for thick and vidal sputum. Rt nare NGT placement verified via auscultation. NGT to LIWS. NGT irrigated. Bite block removed for mouth care. Temp sensing mendoza catheter draining bart uop with sediment. Mendoza care completed.
pneumatic compression sleeves are in use.
[2024-12-21 21:28] LABS: Blood Urea Nitrogen 107 mg/dl (9-20); Calcium 8.3 mg/dl (8.4-10.2); Carbon Dioxide 27 mmol/L (22-30); Chloride 113 mmol/L (98-107); Estimated Creatinine Clearance 36 ml/min; Glucose 125 mg/dl (70-99); Potassium 4.8 mmol/L (3.5-5.1); Sodium 145 mmol/L (135-145); eGFR 30.16
[2024-12-21] MEDS: ZOSYN 50 IV (21:54)
[2024-12-21] MEDS: PRECEDEX 100 IV (23:48)
[2024-12-22] VITALS (25 sets, daily range): BP systolic 111–189; BP diastolic 65–111; BMI 29.9
[2024-12-22 00:01] LABS: Glucose - Point of Care 121 mg/dl (70-99)
[2024-12-22] MEDS: NOVOLOG FLEXPEN-MODERATE RESISTANCE SC ×4 (00:05→23:57)
[2024-12-22] MEDS: SUBLIMAZE 50 MCG IV ×2 (00:05→04:26)
--- NOTE | 2024-12-22 00:57 | PTCARENOTE ---
Patient reassessed, restless, and moving around, legs over the bed rail. HR 124, RR 33. Pt reoriented to place and situation. Calming measures utilized. PRN fentanyl administered. Adam RT at the bedside. Precedex ongoing. Patient cleansed and
linens changed.
[2024-12-22] MEDS: ZOSYN 50 IV (04:28)
[2024-12-22 05:02] LABS: Hematocrit 25.1 % (39.0-52.0); INR 1.42; Mean Corp Hgb Conc. 31.9 g/dL (33.0-37.0); Mean Corpuscular Hgb 36.2 pg (27.0-31.0); Mean Corpuscular Volume 113.6 fL (80.0-94.0); Mean Platelet Volume 11.8 fL (7.4-10.4); PT 17.6 Sec (11.4-14.6); Platelet Count 66 10^3/uL (130-400); Red Blood Cell Count 2.21 10^6/uL (4.70-6.10); Red Cell Dist. Width 31.8 % (11.5-14.5); White Blood Cell Count 27.6 10^3/uL (4.8-10.8)
[2024-12-22 05:21] LABS: B.E. 0.1 mmol/L; HCO3 24.7 mmol/L (21-28); O2 Saturation % 98.6 % (94-98); PCO2 39 mmHg (35-48); PO2 83 mmHg (83-108); pH 7.41 (7.35-7.45)
[2024-12-22] MEDS: PRECEDEX 100 IV ×5 (05:36→22:04)
[2024-12-22 05:41] LABS: AST (SGOT) 397 U/L (17-59); Albumin 3.1 g/dl (3.5-5.0); Alkaline Phosphatase 81 U/L (38-126); Blood Urea Nitrogen 102 mg/dl (9-20); Calcium 8.5 mg/dl (8.4-10.2); Carbon Dioxide 23 mmol/L (22-30); Chloride 116 mmol/L (98-107); Estimated Creatinine Clearance 45 ml/min; Glucose 128 mg/dl (70-99); Sodium 148 mmol/L (135-145); Total Bilirubin 7.2 mg/dl (0.2-1.3); Total Protein 6.1 g/dl (6.3-8.2); Triglycerides 343 mg/dl (10-149); eGFR 39.42
[2024-12-22 05:47] LABS: ALT (SGPT) 1409 U/L (0-50)
[2024-12-22 06:00] LABS: Glucose - Point of Care 132 mg/dl (70-99)
[2024-12-22] MEDS: LR 1000 IV (06:19)
--- NOTE | 2024-12-22 06:29 | PTCARENOTE ---
Patient reassessed. Restless and moving his legs and arms around the bed. Grabbing on the bed rail. Calming measures and reorientation provided. PRN administered. Precedex titrated. Patient had liquid BMs. FMS placed. Patient cleansed and linens
changed.
--- NOTE | 2024-12-22 06:42 | W.PN.HOSP.TC ---
Today's Communication/Plan
-
vent mgmt pressor steroids sedation as per ICU
abx discontinued as per ID, monitor off
glycemic control while on steroids
Monitor LFts, renal function, H&H
check Bladder renal US
Assessment / Plan
Assessment / Plan
Physical Exam
General: No Pallor, no acute distress, appears comfortable at this time
HEENT: NormoCephalic, Atraumatic, sclera icterus
Respiratory: Clear to auscultation, intubated
Cardiac: S1/S2, NSR
GI: abd Soft, Non Tender, seems distended, decreased bowel sounds
Musculoskeletal: No Clubbing, No Cyanosis and No Edema
Skin: No Rash
Neuro: sedated
54M HIV HAART, follows with [facility], HTN BPH p/w AMS weakness palpitations. Noted severely lethargic on arrival to ED, unresponsive, since improved (more awake alert conversant coherent) with IVF bolus though remained confused disoriented to place
and time, possible word finding difficulties. Sinus Tachy but otherwise VSS on room air, ED eval was also significant for severe Anemia Hgb 3.3 leukocytosis 29.4 and GOVIND Cr 2.5. No obvious signs of bleeding. Transfusions ordered however type and
screen noted ab's requiring blood from [place], transfusion delayed as a result. With tachycardia elevated white count hx HIV possible GOVIND, significant concern for severe sepsis opportunistic infection (though severe anemia would also likely
result in tachycardia and stress reactive Leukocytosis without infection). Patient admitted to ICU for closer monitoring. Patient in extremis by camp guard next day prompting intubation and emergent transfusion least incompatible blood.
#severe anemia hgb 3.3, hct 9.0
#Acute Respiratory Failure, Vent Dependent Resp Failure
#Lactic Acidosis likely 2/2/ severe anemia
#Hypovolemic Shock
Iron studies: appreciated
stool heme negative
- ICU admit
- Mini Lab Operator consult appreciated
-Vent mgmt, pressor support, steroids as per ICU
- Patient positive for antibodies, blood bank coordinating care with [facility]
- Least incompatible PRBCs emergently transfused with pre-treatment steroids, tylenol, and benadryl. Received total 6 PRBC least incompatible.
- Hematology eval appreciated possible autoimmune hemolytic anemia contributing, cont steroids
#Coffee ground emesis following intubation NGT placement
#Shock Liver likely 2/2 severe anemia hypotension as above
-GI eval appreciated coffee ground emesis likely 2/2 NGT trauma, EGD performed 12/20/24 Esophagitis noted, no bleeding, cont IV protonix BID, avoid NSAIDs
- trend LFTs improving
#Possible septic shock unclear source (Leukocytosis, Tachycardia), less likely
Tachycardia since resolved with transfusions as above
Leukocytosis persists but likely steroid induced at this time
Head CT: Focus of decreased density within the white matter lateral to the frontal horn of the left lateral ventricle, measurements given above. This most likely represents an area of encephalomalacia, possibly from old infarction. A focal area of
demyelination is also possible. No evidence for acute intracranial hemorrhage. No evidence of mass effect with no midline shift.
Chest/Abd/Pel CT appreciated Lymphadenopathy neck chest wall pelvis likely reactive inflammatory nodes, possible neoplastic lymph nodes, coronary artery calcifications, no evidence pna, large gallstone w/o evidence cholecystitis or biliary ductal
dilation
- ID consult appreciated empiric vanc and zosyn discontinued, monitoring off abx
Troponin Elevation
likely Non-ischemic TN
ECHO appreciated EF 60-65% no regional wall motion abn's
#acute kidney injury
- Blood transfusions as above
- IVF as per ICU
- monitor renal function
- hold Biktarvy
-check bladder renal US
#hyperbilirubinemia
- hold Biktarvy in setting of GOVIND and hyperbilirubinemia
#essential hypertension
- holding home antihypertensives due to shock as above
#BPH
- continue finasteride
#HIV
- hold Biktarvy in setting of GOVIND and hyperbilirubinemia
dvt ppx scd
gi ppx protonix
Full Code
Discussed with patient's Alexandro Fisher [phone]
Total Critical Care Time__40___ minutes. I was immediately available to the patient and staff. I personally examined, reviewed labs, diagnostic images/reports, interpretations, treatment plans, discussed patient care with other providers, entered
orders as appropriate and documented the medical record.
Anticipated Discharge: > 48 hours
Subjective/Interval History
-
Date of Service: December 22, 2024
sedated intubated
Objective Data
-
Labs:
Laboratory Results
12/21/24 12/22/24 12/22/24
20:55 04:39 05:08
WBC 27.6 H
Hgb 8.0 L
Hct 25.1 L
Plt Count 66 L
PT 17.6 H
INR 1.42
HCO3 Cancelled 24.7
Sodium 145 148 H
Potassium 4.8 5.0
Chloride 113 H 116 H
Carbon Dioxide 27 23
BUN 107 H* 102 H*
Creatinine 2.5 H 2.0 H
Glucose 125 H 128 H
Calcium 8.3 L 8.5
Total Bilirubin 7.2 H
AST 397 H
ALT 1409 H*
Alkaline Phosphatase 81
Vital Signs:
Vital Signs
Temp Pulse Resp BP Pulse Ox
97.8 F 70 18 143/81 95
12/22/24 04:30 12/21/24 18:30 12/21/24 18:30 12/21/24 18:00 12/22/24 04:59
I&O
12/20/24 12/21/24 12/22/24
06:59 06:59 06:59
Intake Total 3810.5 / 3868.4 1114.7 / 1138.4 3717.1 / 3717.1
Output Total 2730 / 2830 2541 / 2541 2535 / 2535
Balance 1080.5 / 1038.4 -1426.3 / -1402.6 1182.1 / 1182.1
[2024-12-22] MEDS: MIRALAX TUBE (07:31)
[2024-12-22] MEDS: NSS (PRESERVATIVE FREE) 10 ML IV ×2 (07:31→20:04)
[2024-12-22] MEDS: PROTONIX IV 40 MG IV ×2 (07:32→20:03)
[2024-12-22] MEDS: DECADRON 60 MG IV (07:33)
--- NOTE | 2024-12-22 08:32 | W.PN.ID1 ---
Date of Service
Date of Service: December 22, 2024
Today's Communication
Discontinue Zosyn.
Assessment / Plan
Profound anemia
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
Hypotension;
-Now off pressors
Leukocytosis
-Likely steroid effect; patient remains on Decadron
Lactic acidosis; improved
Bacteremia with coagulase-negative staph; suspect contaminant
Hyperbilirubinemia
GOVIND
HIV
-VL = 22; CD4 = 391; Biktarvy (currently on hold)
HTN
BPH
HCV
Recommendations:
At this time, the etiology of the patient's profound anemia is not clear. Patient has been evaluated by [facility], and autoimmune hemolytic anemia is a possibility.
Holding Biktarvy.
- Will restart antiretroviral therapy when patient more stable.
D/C further zosyn. Observe closely off antibiotics.
Await Parvovirus B19 PCR
Follow WBC / temps.
Continue with supportive measures.
Patient remains critically ill, vent dependent and in intensive care unit.
updated at the bedside.
����������������������������������������������������������
Chief Complaint
-: Clinical Sepsis and Other (Anemia. HIV positive.)
Subjective / Review of Systems
Patient seen and examined. Remains on vent at this time.
Review of Systems: No Fever
Vital Signs / Physical Exam
Vital Signs
Vital Signs
Temp Pulse Resp BP Pulse Ox
97.4 F 54 18 140/91 98
12/22/24 07:00 12/22/24 07:00 12/22/24 07:00 12/22/24 07:00 12/22/24 08:03
Physical Exam
Constitutional: Acutely Ill and Non-toxic
Head: Normocephalic
Cardiovascular: Regular Rate (Tachycardic) and S1/S2; Negative S3/S4 or Murmur
Pulmonary: Coarse and Other (ET tube to vent.); Negative Wheezes or Rales
Gastrointestinal: Soft, Non Distended, Decreased Bowel Sounds, No Rebound and No Guarding
Extremities: Negative Edema or Erythema
Skin: Warm and Dry
Objective Data
Lab Data
Lab Results
12/22/24 04:39
12/22/24 04:39
PT 17.6 Sec (11.4-14.6) H 12/22/24 04:39
INR 1.42 12/22/24 04:39
Estimated Creat Clear 45 ml/min 12/22/24 04:39
Lactic Acid 2.3 mmol/L (0.7-2.0) H 12/19/24 20:11
Total Bilirubin 7.2 mg/dl (0.2-1.3) H 12/22/24 04:39
AST 397 U/L (17-59) H 12/22/24 04:39
ALT 1409 U/L (0-50) H* 12/22/24 04:39
Alkaline Phosphatase 81 U/L (38-126) 12/22/24 04:39
Most recent labs reviewed.
Micro Results:
12/21/24 03:35 Blood Culture - Preliminary
Blood/Venous No Growth in 24 hours- Final report to follow
12/21/24 13:58 Blood Parasites Smear - Preliminary
Blood/Venous
12/18/24 18:40 Blood Culture - Preliminary
Blood/Venous Coagulase neg. staphylococcus
Gram Stain - Preliminary
12/18/24 18:41 Blood Culture - Preliminary
Blood/Venous Coagulase neg. staphylococcus
Gram Stain - Preliminary
12/18/24 21:24 Urine Culture - Final
Urine NO GROWTH
12/18/24 22:36 MRSA Screen - Final
Nose No Methicillin Resistant Staphylococcus aureus isolated.
12/18/24 14:14 Influenza Types A & B (DANIEL) - Final
Nasal Swab Negative for Influenza A & B, NAAT
Negative results must be combined with clinical observations
and patient history.
Nucleic Acid Amplification test (NAAT)performed on the
[employer] platform.
Imaging:
12/18/2024 CT chest/abdomen/pelvis: Multiple top normal to slightly enlarged lymph nodes present within the left lower neck and upper chest wall bilaterally. Moderate elevation of the right hemidiaphragm with mild patchy atelectasis in both
posterior lungs. No consolidation to suggest pneumonia. Please see full dictation for additional detail.
Care Review
Plan reviewed with: Physician (Critical Care)
[2024-12-22] MEDS: LASIX 40 MG IV (09:43)
--- NOTE | 2024-12-22 09:47 | PTCARENOTE ---
Addendum entered by Cara Melton RN 12/22/24 10:13:
decreased urine output. irrigated as per MD, return large amount urine.
Original Note:
report received, assessments per work list. suctions for large amount thick vidal sputum, precedex and fentanyl per work list. vent changes made by hadoop analyst, [peep increased to 8. fluids capped per order. ngt placement verified. mendoza draining tea
colored urine with large amount sediment. protective foams reapplied. fecal management system in place, liquid brown stool. hyperactive bowel sounds.
[2024-12-22 10:42] LABS: Reticulocyte Count 16.2 % (0.4-2.8)
[2024-12-22 11:04] LABS: Direct Bilirubin 4.5 mg/dl (0.0-0.4); LDH 1656 U/L (120-246)
[2024-12-22 11:57] LABS: Glucose - Point of Care 148 mg/dl (70-99)
[2024-12-22 12:10] LABS: Glucose - Point of Care 149 mg/dl (70-99)
[2024-12-22 12:11] LABS: HCO3 25.1 mmol/L (21-28); PCO2 37 mmHg (35-48); PO2 114 mmHg (83-108); pH 7.44 (7.35-7.45)
--- NOTE | 2024-12-22 12:36 | PTCARENOTE ---
patient reassessed. fentanyl gtt off, Precedex per work list. drowsy, follows commands. diuresing clear yellow urine. wrist restraints maintained for patient safety
--- NOTE | 2024-12-22 12:48 | W.PN.ONC2 ---
Today's Communication / Plan
-
- ongoing hemolysis however hgb stable at 8.0 g/dl.
- continue to trend.
Impression
Impression
Severe anemia with RDW greater than 30 macrocytosis due to significant reticulocytosis
Multiple antibodies obstructing crossmatch
Reactive leukocytosis
Upper GI bleed coffee grounds and NG tube
Hypotension
HIV
Shock
Rule out sepsis
Lactic acid 13
Plan
Plan
Review of the peripheral smear showed significant reticulocytosis without schistocytes or targets. Anemia work-up c/s with destructive process with high retic at 12.3%, T bili on presentation ~7 mostly indirect, elevated LDH, hapto undetectable.
AYSE+, awaiting specific antibody testing. no prior hx of transfusions.
possible element of GIB with coffee ground emesis however per no reported bleeding preceding weeks/months and pt first noted to have a new anemia on routine labs in Oct (value unknown). no substrate deficiencies, markedly high ferritin with
liver injury.
hx of recreational drug use however clean x 3 years. UDS negative. not aware of amyl nitrite (popper ) use which can be associated with a AYSE neg intravascular hemolytic anemia.
received 6 units of least incompatible blood with good response, hgb remains stable at 8.0 g/dl however hemolysis panel would suggest ongoing hemolysis with rise in retic, LDH and T bili over past 24 hours.
CBC daily. transfuse for hgb < 7.0 g/dl. continue to premedicate with Benadryl, Tylenol and Solu-Medrol if least incompatible product given.
new thrombocytopenia likely related to acute illness, shock liver. continue to monitor.
Continue ICU level support for multiorgan system failure.
Subjective/Objective
Chief Complaint
hemolytic anemia, shock
Subjective
pt remains intubated however following commands. He remains off pressors hemodynamically stable and afebrile.
Vital Signs:
Vital Signs
Temp Pulse Resp BP Pulse Ox
97.8 F 58 18 144/91 98
12/22/24 11:00 12/22/24 12:30 12/22/24 12:30 12/22/24 12:00 12/22/24 12:30
Lab Results:
Laboratory Data
WBC 27.6 10^3/uL (4.8-10.8) H 12/22/24 04:39
Hgb 8.0 g/dL (13.0-18.0) L 12/22/24 04:39
Plt Count 66 10^3/uL (130-400) L 12/22/24 04:39
PT 17.6 Sec (11.4-14.6) H 12/22/24 04:39
INR 1.42 12/22/24 04:39
eGFR 39.42 12/22/24 04:39
Physical Exam
HEENT: Jaundice
Cardiology: Normal Sinus Rhythm
Pulmonary: Rhonchi
GI: Soft; No Distended
Extremities: Edema and Other (faint KS lesion noted on left hand, arm, right leg. )
Neuro: Other (intubated. shook head to name and + hand portfolio director in command)
Review of Systems
Review of Systems
unable to obtain
--- NOTE | 2024-12-22 13:24 | W.PN.INTV ---
Today's Communication / Plan
Recommendations
-DC IV fluids, Lasix 40 mg IV x 1
-Continue to wean fentanyl, continue Precedex
-SAT SBT again in a.m.
-Increase PEEP to 8, lower FiO2 to 50%
-Chest x-ray and ABG in a.m.
Assessment
-
54-year-old gentleman was brought to the emergency room for weakness and lethargy, noted to have a hemoglobin of 3.3. He was admitted to the ICU for close monitoring. Due to extensive antibody profile, unmatched blood could not be found.
Overnight patient became more hypotensive, acidotic with rising lactate up to 15 along with respiratory distress. Due to nonavailability of match blood, emergent consent was obtained and a negative, unmatched blood transfusion was given followed by
intubation, mechanical ventilation and need for pressor therapy. On day 1, patient received total of 6 units of unmatched a negative PRBC units with significant improvement hemodynamically. Patient was not also noted to have acute kidney injury,
staph coagulase-negative bacteremia. Patient has known history of HIV.
Last 24 hours:
-Fluid balance, +250 mL
-Hemoglobin has stayed stable after 6 units of PRBCs, 8.0 this morning. Platelets trended down, 66k today
-AST, ALT continue to improve
-LDH and bilirubin rising, suggestive of ongoing hemolysis
-BUN elevated, suspect again related to hemolysis
-INR improved to 1.42, after 10 mg of IV vitamin K
-EGD performed 12/20, esophagitis and erythematous antral mucosa, no active bleeding noted
-Current infusions, Precedex for light sedation
#1. Acute respiratory failure with respiratory distress
-This was primarily related to underlying severe lactic acidosis, severe symptomatic anemia, Shock and possibly concomitant sepsis
-s/p intubation on 12/19
-Failed SBT on 12/21 due to tachypnea, tachycardia and hypoxia. Increased O2 requirement requiring an FiO2 of 60%
-ABG 7.41, 39, 83 on /18/60% with a PEEP of 5. After PEEP increased, ABG 7.44, 37, 114 on 60% with PEEP of 8
-Back on volume AC, reattempt SAT/SBT on 12/23
-Weaned off propofol, continuing Precedex, wean fentanyl as tolerated.
#2. Shock with severe lactic acidosis, suspect hypovolemic with severe symptomatic anemia
-s/p unmatched PRBCs
-Septic shock also in differential, continue antibiotics for now, ID service on case, staph coagulase-negative bacteremia appears to be contaminant
-Lactic acid improved
-Off all pressors now. Patient was briefly on 3 pressors, since weaned off
-Off bicarb drip now, off stress dose steroids
#3. Severe anemia, symptomatic
-Considering appropriate iron stores and elevated MCV, acute blood loss was felt to be less likely, ? Hemolytic anemia. Prior history of anemia with Pomalidomide therapy
-S/p total 6 units transfused, at risk of delayed hemolysis as it was unmatched blood.
-Rising LDH and bilirubin and BUN suggestive of ongoing hemolysis
-Pre-treatment was given with Solu-Medrol, IV Tylenol and IV Benadryl prior to transfusion
-LDH elevated, haptoglobin is pending
-Liver imaging unremarkable
-Upper GI bleed was also a concern considering coffee-ground output from OG tube, s/p EGD on 12/20, esophagitis and antral mucosal erythema without active bleeding, PPI 40 twice daily
-Update: As per Blood bank, it may take weeks for availability of fully matched blood for the patient, in the meantime, will continue with current Rh-ve option
#4. Acute kidney injury, with hyperkalemia
-Suspect prerenal, also patient had been on lisinopril and hydrochlorothiazide
-Holding antihypertensives, responded to IV fluids, good urine output
-With hypotension and shock, ATN also in differential diagnosis
-Urine output good, Cr improving.
-Mild hyperkalemia likely related to large volume blood transfusion
-On exam patient appears to have 1+ pedal edema bilaterally, Lasix 40 mg IV x 1, hold maintenance IV fluids
#5. History of HIV, diffuse lymphadenopathy on CT chest/abdomen
-Patient has been on Biktarvy, reported compliance
-12/19, Discussed with patient's infectious disease provider at [facility], last viral load was undetectable and CD4 count was more than 367 in October 2024
-Continue Zosyn, follow-up on cultures. Vancomycin on hold per ID. Positive blood cultures felt to be contaminant, coagulase-negative staph
-Infectious disease service on case
#6. Thrombocytopenia
-Has not been exposed to heparin
-Continue to trend
-Await further recommendations from hematology service
Critical Care time 42 mins -- The patient is admitted for acute critical illness for the treatment of vital organ failure and/or prevention of further life-threatening conditions. Total care includes time spent in review of history, physical exam,
medications, hemodynamic/ventilator parameters, laboratory data, imaging and discussion with house staff, pharmacy, respiratory therapy, kitchen and bath designer, and nursing.
Subjective Dataa
Subjective Data
Date of Service:
Date of Service: December 22, 2024
Chief Complaint: Technical Expert Follow Up
Subjective:
Patient currently intubated, mechanically ventilated and sedated
Review of Systems
General: Unobtainable - Sedation
Objective Data
Data Reviewed
Vital Signs / I&O / Oxygen:
Vital Signs
Temp Pulse Resp BP Pulse Ox
97.8 F 58 18 144/91 98
12/22/24 11:00 12/22/24 12:30 12/22/24 12:30 12/22/24 12:00 12/22/24 12:30
Intake and Output
12/21/24 12/22/24 12/23/24
06:59 06:59 06:59
Intake Total 1114.7 / 1138.4 3717.1 / 3898.1 610.8 / 610.8
Output Total 2541 / 2541 2535 / 2535 1605 / 1605
Balance -1426.3 / -1402.6 1182.1 / 1363.1 -994.2 / -994.2
SaO2 [CPAP] 78
SaO2 [A/C] 99
SaO2 98
Nasal Cannula flow liters per 2
minute
Physical Exam
General: Comfortable
HEENT: Normocephalic and Anicteric
Cardiovascular: S1-S2
Respiratory: Clear and Non-Labored Respirations
GI: Soft and Non Distended
Skin: Warm
Labs/Micro/Reports
Lab Data
12/22/24 04:39
12/22/24 04:39
Laboratory Results
12/22/24 12/22/24 12/22/24
04:39 05:08 11:58
PT 17.6 H
INR 1.42
pH Cancelled 7.41 7.44
pCO2 Cancelled 39 37
pO2 Cancelled 83 114 H
HCO3 Cancelled 24.7 25.1
O2 Delivery Level Cancelled
Microbiology
12/18/24 18:40 Blood/Venous Blood Culture - Preliminary
Staphylococcus epidermidis
12/18/24 18:40 Blood/Venous Gram Stain - Preliminary
12/18/24 18:41 Blood/Venous Blood Culture - Preliminary
Staphylococcus epidermidis
12/18/24 18:41 Blood/Venous Gram Stain - Preliminary
12/21/24 03:35 Blood/Venous Blood Culture - Preliminary
No Growth in 24 hours- Final report to follow
12/21/24 13:58 Blood/Venous Blood Parasites Smear - Preliminary
12/18/24 21:24 Urine Urine Culture - Final
NO GROWTH
12/18/24 22:36 Nose MRSA Screen - Final
No Methicillin Resistant Staphylococcus aureus isolated.
--- NOTE | 2024-12-22 16:15 | CHAP ---
Enrique was sleeping peacefully, with friend Srinivasa present. Sirnivasa shared background, and later Alexandro arrived with other supportive friends. Alexandro described the chosen people around Enrique as 'swans' bringing 'good vibes.' Emotional and spiritual
support provided, through listening and affirming the 'good vibes.'
--- NOTE | 2024-12-22 16:36 | PTCARENOTE ---
patient reassessed. tube feeds per orders. precedex decreased per work list for RASS. continues to have adequate urine output. ett suctions for large amount thick yellow secretions and plug noted. remains off fentanyl gtt without verbal or nonverbal
pain cues
[2024-12-22] MEDS: NOVOLOG FLEXPEN-MODERATE RESISTANCE 1 UNITS SC (18:11)
[2024-12-22 18:21] LABS: Glucose - Point of Care 160 mg/dl (70-99)
--- NOTE | 2024-12-22 20:00 | PTCARENOTE ---
Rec'd pt with wrists restrained for pt safety, precedex gtt at 0.9 jacquelin, pt awakens to name, nods head appropriately, follows simple commands, wiggles toes & squeezes hands to command, SR, bp stable, weak distal pulses, + anasarca, #7.5 oral ett
repos on R side at 24 cm, ac 18, tv 450 8 peep, 50%, lungs w/ few scat rhocnhi, scant vidal secretions, +bowel sounds, fecal mgmt sys intact draining brown liquid stool, R edwige marcus-rec jevity 1.5 at 20ml/hr & 25ml/hr h20 flush, no vomiting, abd
obese, thermister mendoza draining bart/ tea colored urine w/ sediment; R sc dsg changed per protocal
[2024-12-22] MEDS: VENTOLIN NEBULES 2.5 MG INH (20:11)
[2024-12-22] MEDS: SODIUM CHLORIDE 3% FOR INHALATION 1 VIAL INH (20:11)
--- NOTE | 2024-12-22 21:00 | PTCARENOTE ---
fio2 decr to 40% by resp therapist
[2024-12-22 23:59] LABS: Glucose - Point of Care 142 mg/dl (70-99)
[2024-12-23] VITALS (29 sets, daily range): BP systolic 112–150; BP diastolic 60–102; BMI 29.0
--- NOTE | 2024-12-23 | PTCARENOTE ---
sys reviewed, changes noted, CHG bath done, linens changed
[2024-12-23] MEDS: PRECEDEX 100 IV ×3 (03:13→12:11)
[2024-12-23 03:19] LABS: % Basophils 0.4 % (0-2); % Immature Granulocytes 4.6 % (0-0.5); % Monocytes 6.4 % (1.7-9.3); % Neutrophils 88.6 % (42.2-75.2); Absolute Basophils 0.1 10^3/uL (0-0.2); Absolute Immature Granulocytes 1.2 10^3/uL (0-0.05); Absolute Monocytes 1.7 10^3/uL (0.1-0.6); Absolute Neutrophils 23.8 10^3/uL (1.4-6.5); Hematocrit 27.8 % (39.0-52.0); Hemoglobin 8.6 g/dL (13.0-18.0); Mean Corp Hgb Conc. 30.9 g/dL (33.0-37.0); Mean Corpuscular Hgb 36.6 pg (27.0-31.0); Mean Corpuscular Volume 118.3 fL (80.0-94.0); Mean Platelet Volume 12.5 fL (7.4-10.4); Platelet Count 72 10^3/uL (130-400); Red Blood Cell Count 2.35 10^6/uL (4.70-6.10); Red Cell Dist. Width 31.8 % (11.5-14.5); White Blood Cell Count 26.8 10^3/uL (4.8-10.8)
[2024-12-23 03:26] LABS: INR 1.35; PT 16.9 Sec (11.4-14.6)
[2024-12-23 03:44] LABS: AST (SGOT) 205 U/L (17-59); Albumin 3.1 g/dl (3.5-5.0); Alkaline Phosphatase 83 U/L (38-126); Blood Urea Nitrogen 108 mg/dl (9-20); Calcium 8.6 mg/dl (8.4-10.2); Carbon Dioxide 26 mmol/L (22-30); Chloride 117 mmol/L (98-107); Estimated Creatinine Clearance 47 ml/min; Glucose 163 mg/dl (70-99); Phosphorus 6.2 mg/dl (2.5-4.5); Sodium 151 mmol/L (135-145); Total Bilirubin 11.7 mg/dl (0.2-1.3); Total Protein 6.1 g/dl (6.3-8.2); eGFR 41.92
--- NOTE | 2024-12-23 04:00 | PTCARENOTE ---
sys reviewed, changes noted
[2024-12-23 04:03] LABS: ALT (SGPT) 1127 U/L (0-50)
[2024-12-23 04:38] LABS: B.E. 2.6 mmol/L; HCO3 26.1 mmol/L (21-28); O2 Saturation % 98.4 % (94-98); PCO2 35 mmHg (35-48); PO2 94 mmHg (83-108); pH 7.48 (7.35-7.45)
[2024-12-23] MEDS: NOVOLOG FLEXPEN-MODERATE RESISTANCE 1 UNITS SC ×4 (05:12→23:29)
[2024-12-23 05:21] LABS: Glucose - Point of Care 150 mg/dl (70-99)
[2024-12-23] MEDS: VENTOLIN NEBULES 2.5 MG INH ×2 (07:19→20:27)
[2024-12-23] MEDS: SODIUM CHLORIDE 3% FOR INHALATION 1 VIAL INH ×2 (07:19→20:27)
[2024-12-23] MEDS: PROTONIX IV 40 MG IV ×2 (07:56→19:40)
[2024-12-23] MEDS: NSS (PRESERVATIVE FREE) 10 ML IV ×2 (07:56→19:40)
[2024-12-23] MEDS: MIRALAX 17 GRAMS TUBE (07:56)
[2024-12-23] MEDS: DECADRON 60 MG IV (08:12)
--- NOTE | 2024-12-23 09:12 | PTCARENOTE ---
report received, assessments per work list. patient with increased anxiety and tachycardia during assessments and care, denies discomfort. precedex per work list. ETT suctioned for large amount thick yellow sputum, coarse rhonchi bilaterally.
increased oral secretions. hyperactive bowel sounds. increased flatus. mendoza draining tea colored urine with sediment. right subclavian triple line patent with blood returns. +3 anasarca. discolored purple areas feet unchanged. cxr report noted. ngt
advanced to 80. abdomen xray ordered tto verify proper placement. spouse at bedside, tearful. support given. restraints maintained for patient safety
--- NOTE | 2024-12-23 10:23 | PTCARENOTE ---
unable to advance salem to proper positioning. d/w mechanical design engineer, salem removed, dobhoff placed. RT to place patient on SBT
[2024-12-23 10:33] LABS: Direct Bilirubin 8.3 mg/dl (0.0-0.4)
[2024-12-23 11:07] LABS: LDH 1513 U/L (120-246)
--- NOTE | 2024-12-23 11:19 | W.PN.INTV ---
Today's Communication / Plan
Recommendations
See below
Assessment
-
54-year-old male with past medical history of HIV on HAART, who was admitted to ICU for evaluation of weakness/lethargy and hemoglobin of 3.3. Over the weekend he received 6 units of unmatched PRBC, due to right lower antibody seen on type and
cross. Due to hypotension and rising lactate, patient was intubated and placed on 3 pressors initially.
Last 24 hours:
-Fluid balance, -1 601 mL
-Hemoglobin has stayed stable after 6 units of PRBCs, 8.6 this morning. Platelets 72K
-AST 205, ALT 1127�continue to improve
-LDH and bilirubin rising (11.7), suggestive of ongoing hemolysis
-BUN elevated to 108 and creatinine 1.9 likely secondary to hemolysis
-EGD performed 12/20, esophagitis and erythematous antral mucosa, no active bleeding noted
-Currently on Precedex 1 and dexamethasone 40. On Jevity tube feeds.
#Acute respiratory failure
S/p intubation on 12/19
Failed SBT on 12/21, required increased O2 FiO2 of 60%. O2 requirement decreased to 40% today
ABG at noon today. Vent settings 450/18/40% with PEEP of 8
Continue Precedex. Discontinue propofol and fentanyl
#Shock with lactic acidosis, likely secondary to hypovolemia with symptomatic anemia
Status post 6 units unmatched packed red blood cells
Lactic acid improved. Off all pressors.
Patient currently on 40 mg of dexamethasone daily. Start patient on olanzapine for tremors and anxiety.
#Severe anemia
History of pomalidomide therapy. Possible hemolytic anemia
Status post 6 units of packed red blood cells, unmatched
Rising LDH and bilirubin and BUN, continue to monitor
Liver imaging negative
Upper GI scope done on 12/20 showing esophagitis and antral mucosal erythema
Continue PPI 40 twice daily
Renal consulted, appreciate inputs
#Hypernatremia
Start patient on D5W at 75 mL/h
Recheck labs tomorrow morning
#GOVIND
Hold lisinopril and hydrochlorothiazide
Good response to IV fluids and good urine output. Transition fluids to D5W
Mild hyperkalemia due to large-volume blood transfusion
Single dose Lasix 40 mg IV given yesterday
Continue to monitor fluid status
#History of HIV
Hold Biktarvy
Last viral load was undetectable and CD4 count was 367 in October 2024
Zosyn and vancomycin discontinued, ID on board appreciate inputs
Patient followed at [place] by infectious disease
#Thrombocytopenia
Continue to trend
Hematology on board, appreciate input
Subjective Dataa
Subjective Data
Date of Service:
Date of Service: December 23, 2024
No acute events overnight. Patient awake and more interactive today, blinking eyes and nodding head. Patient still intubated however off pressors. Patient vital stable overnight. Blood pressure 127/79, pulse 78, respirations 18, temperature 100,
97% oxygen saturation.
Chief Complaint: Resin Remover Follow Up
Review of Systems
General: Other (Patient currently intubated)
Objective Data
Data Reviewed
Vital Signs / I&O / Oxygen:
Vital Signs
Temp Pulse Resp BP Pulse Ox
100.3 F 83 22 114/67 96
12/23/24 11:15 12/23/24 10:32 12/23/24 10:32 12/23/24 10:00 12/23/24 10:32
Intake and Output
12/22/24 12/23/24 12/24/24
06:59 06:59 06:59
Intake Total 3717.1 / 3898.1 1762.4 / 1828.4 472.2 / 472.2
Output Total 2535 / 2535 4170 / 4270 675 / 675
Balance 1182.1 / 1363.1 -2407.6 / -2441.6 -202.8 / -202.8
SaO2 [CPAP] 96
SaO2 [A/C] 96
SaO2 96
Nasal Cannula flow liters per 2
minute
Physical Exam
General: Comfortable
HEENT: Normocephalic and Anicteric
Cardiovascular: S1-S2
Respiratory: Clear and Non-Labored Respirations
GI: Soft, Distended and Normal Bowel Sounds
Skin: Warm
Labs/Micro/Reports
Lab Data
12/23/24 03:05
12/23/24 03:05
Laboratory Results
12/22/24 12/23/24 12/23/24
11:58 03:05 04:20
PT 16.9 H
INR 1.35
pH 7.44 7.48 H
pCO2 37 35
pO2 114 H 94
HCO3 25.1 26.1
O2 Delivery Level
Microbiology
12/21/24 03:35 Blood/Venous Blood Culture - Preliminary
No Growth in 48 hours- Final report to follow
12/18/24 18:40 Blood/Venous Blood Culture - Preliminary
Staphylococcus epidermidis
12/18/24 18:40 Blood/Venous Gram Stain - Preliminary
12/18/24 18:41 Blood/Venous Blood Culture - Preliminary
Staphylococcus epidermidis
12/18/24 18:41 Blood/Venous Gram Stain - Preliminary
12/21/24 13:58 Blood/Venous Blood Parasites Smear - Preliminary
12/18/24 21:24 Urine Urine Culture - Final
NO GROWTH
12/18/24 22:36 Nose MRSA Screen - Final
No Methicillin Resistant Staphylococcus aureus isolated.
--- NOTE | 2024-12-23 11:20 | W.CON.NEPH ---
Consultation
-
Date/Time Consultation Requested: 12/23/24 1115
Date/Time Consultation Performed: 12/23/24 1130
Requesting Provider: Hernán Daniels
Performing Provider: Karo Faye
Reason for Consultation: GOVIND
Medical History
-
Chief Complaint: weakness
History of Present Illness:
54-year-old male with past medical history of HIV currently on HAART, treated HCV,followed by ID at [place], hypertension on Lisinopril, HCTZ, minoxidil for hair, CKD, K stone followed with nephrology, BPH on Finasteride who presented to [place]
hospital with altered mental status and weakness on12/18. Patient was diagnosed with Kaposi's sarcoma and HIV in 2020. He was initially treated with Doxil for sarcoma of the skin until 2023. ED noted significant Anemia Hgb 3.3 leukocytosis 29.4
and GOVIND Cr 2.5, no baseline cr known. He was hypotensive required 3 pressors and had lactic acidosis peak 15 since improved and an elevated bilirubin which cont to peak at 11.7 from hemolytic anemia followed by Hematology. Hb improved and stable
at 8 range after transfusion of incompatible 6 PRBC due to presence of antibodies.There was concern of GIB and EGD shows esophagitis with out active bleeding. LFTs were significantly elevated which are improving now. HIs cr with fluctuating trend
2-2.7, however worsening azotemia upto 108, sodium worsening to 151 nephrology consulted. For acute resp failure he remains intubated and history is very limited, most of it is obtained through chart.
Has low grade fevers. NO diarrhea.
Past Medical History
HIV on HAART, hypertension, BPH, Kaposi's with diagnosis of HIV in 2020, abdominal hernia
HCV (dx 2011; Harvoni 2015)
Social History
Tobacco: Non-Smoker
Alcohol: None
Drug: Former User
Personal:
Living: With Family
Employment: Employed
Family History
Family History: Unable to Obtain
Allergies / Home Medications
Allergy/AdvReac Type Severity Reaction Status Date / Time
No Known Allergies Allergy Verified 12/18/24 14:08
�Medication �Instructions �Recorded �Confirmed �Type
ascorbic acid (vitamin C) (Vitamin 1 g PO DAILY Supplement 12/18/24 12/18/24 History
C oral powder)
bictegravir 50 mg-emtricitabine 1 tab PO DAILY HIV 12/18/24 12/18/24 History
200 mg-tenofovir alafenam 25 mg
tablet (Biktarvy)
finasteride 1 mg tablet 1 mg PO DAILY Urinary Issue 12/18/24 12/18/24 History
lisinopril 20 1 tab PO DAILY Blood Pressure 12/18/24 12/18/24 History
mg-hydrochlorothiazide 12.5 mg
tablet
loperamide 2 mg tablet 2 mg PO Q6HPRN PRN diarrhea 12/18/24 12/18/24 History
loratadine 10 mg tablet 10 mg PO DAILYPRN PRN alleriges 12/18/24 12/18/24 History
minoxidil 2.5 mg tablet 2.5 mg PO DAILY HAIR GROWTH 12/18/24 12/18/24 History
olopatadine 0.2 % eye drops (Eye 1 drp BOTH EYES DAILYPRN PRN 12/18/24 12/18/24 History
Allergy Itch Relief) allergies
Review of Systems
-
Unable to obtain full review of systems at this time due to: Patient Intubation
Physical Exam
Vital Signs
Vital Signs
Temp Pulse Resp BP Pulse Ox
100.3 F 83 22 114/67 96
12/23/24 11:15 12/23/24 10:32 12/23/24 10:32 12/23/24 10:00 12/23/24 10:32
Lab Results
WBC 26.8 10^3/uL (4.8-10.8) H 12/23/24 03:05
RBC 2.35 10^6/uL (4.70-6.10) L 12/23/24 03:05
Hgb 8.6 g/dL (13.0-18.0) L 12/23/24 03:05
Hct 27.8 % (39.0-52.0) L 12/23/24 03:05
Plt Count 72 10^3/uL (130-400) L 12/23/24 03:05
Sodium 151 mmol/L (135-145) H 12/23/24 03:05
Potassium 5.0 mmol/L (3.5-5.1) 12/23/24 03:05
Chloride 117 mmol/L (98-107) H 12/23/24 03:05
Carbon Dioxide 26 mmol/L (22-30) 12/23/24 03:05
BUN 108 mg/dl (9-20) H* 12/23/24 03:05
Creatinine 1.9 mg/dL (0.7-1.3) H 12/23/24 03:05
eGFR 41.92 12/23/24 03:05
Glucose 163 mg/dl (70-99) H 12/23/24 03:05
Calcium 8.6 mg/dl (8.4-10.2) 12/23/24 03:05
Phosphorus 6.2 mg/dl (2.5-4.5) H 12/23/24 03:05
Albumin 3.1 g/dl (3.5-5.0) L 12/23/24 03:05
Physical Exam
General: Awake, No Distress and Nontoxic
HEENT: EOMI, Facial Symmetry, Neck Supple and Other (icteric)
Respiratory: Other (coarse bs bilat )
Cardiac: S1/S2 and Regular Rate/Rhythm
Breast: Deferred by me
Abdomen: Soft, Nontender and Nondistended
Musculoskeletal: No Cyanosis and No Edema
Skin: No Rash
Neuro: Nonfocal/Grossly Intact
Psych: Appropriate
Data Reviewed
-
Radiology: Report Reviewed by me and Discussed with Patient
Labs: Labs Reviewed by me, Discussed with Nurse and Discussed with Patient
Assessment/Plan
-
IMP:
GOVIND-with CKD3? no baseline cr
Hypernatremia
severe anemia hgb 3.3, hct 9.0
Acute Respiratory Failure, Vent Dependent Resp Failure
Lactic Acidosis likely 2/2/ severe anemia
Hypovolemic Shock
Coffee ground emesis following intubation NGT placement
Shock Liver likely 2/2 severe anemia hypotension as above
Possible septic shock
Troponin Elevation -likely Non-ischemic CA
hyperbilirubinemia
essential hypertension
BPH
HIVv
diffuse lymphadenopathy on CT chest/abdomen
Thrombocytopenia
Nephrolithiasis
Hyerpphosphatemia
Plan:
A/w severe anemia felt to be hemolytic, VDRF, shock
GOVIND-no baseline cr , cr fluctuating trend though today cr is ava at 1.9
UA on admit relatively bland, bld + but no RBC, alb ++, check U fena, U PCR
mendoza removed today, follow bladder scan
he had brisk response to lasix, hold today since wt decreasing
initial renal US non obst renal caliculi
Bp are stable , holding ACEI, HCTZ
azotemia could be from prerenal, diuretics and steroids related
cotn D5w for hypernatremia
hemolytic anemia, no reported schistocytes per heme noted-hopefully it is not TMA
abx per ID, w/u in progress
steroids per heme
recheck labs later today and adjust IVF vs FWF in TF
d/w nursing and friends at bedside
CC time spent 40min
[2024-12-23] MEDS: MYLICON 80 MG TUBE (12:12)
[2024-12-23] MEDS: ZYPREXA 10 MG TUBE (12:12)
[2024-12-23] MEDS: D5W 1000 IV ×2 (12:12→23:43)
[2024-12-23 12:20] LABS: B.E. 3.2 mmol/L; HCO3 26.8 mmol/L (21-28); O2 Saturation % 98.8 % (94-98); PCO2 36 mmHg (35-48); PO2 101 mmHg (83-108); pH 7.48 (7.35-7.45)
[2024-12-23 12:23] LABS: Glucose - Point of Care 160 mg/dl (70-99)
--- NOTE | 2024-12-23 12:41 | W.PN.ID1 ---
Date of Service
Date of Service: December 23, 2024
Today's Communication
Follow off antibiotics. Continue workup for anemia.
Assessment / Plan
Profound anemia
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
Hypotension;
- Off pressors
Leukocytosis
-Likely steroid effect; patient remains on Decadron
Lactic acidosis; improved
Bacteremia with coagulase-negative staph; most likely contaminant
Hyperbilirubinemia
GOVIND
HIV
- Most recent VL = 22; CD4 = 391; Biktarvy (currently on hold)
HTN
BPH
HCV
Recommendations:
At this time, the etiology of the patient's profound anemia is not clear. Patient has been evaluated by [facility], and autoimmune hemolytic anemia is a possibility.
Case discussed with [facility]; will check EBV serology and viral load, mycoplasma pneumoniae antibodies. Will also check G6PD.
Holding Biktarvy.
- Will restart antiretroviral therapy when patient more stable.
Observe closely off antibiotics.
Await Parvovirus B19 PCR
Follow WBC / temps.
Continue with supportive measures.
Patient remains critically ill, vent dependent and in intensive care unit.
updated at the bedside.
����������������������������������������������������������
Chief Complaint
-: Clinical Sepsis and Other (Anemia. HIV positive.)
Subjective / Review of Systems
Patient seen and examined. Remains on vent at this time, although currently being weaned.
Vital Signs / Physical Exam
Vital Signs
Vital Signs
Temp Pulse Resp BP Pulse Ox
100.3 F 76 16 130/72 98
12/23/24 11:15 12/23/24 12:00 12/23/24 12:00 12/23/24 12:00 12/23/24 12:00
Physical Exam
Constitutional: Comfortable, Acutely Ill and Non-toxic
Head: Normocephalic
Eyes: No Conjunctival Hemorrhage
Cardiovascular: Regular Rate (Tachycardic) and S1/S2; Negative S3/S4 or Murmur
Pulmonary: Coarse and Other (ET tube to vent.); Negative Wheezes or Rales
Gastrointestinal: Soft, Non Distended, Decreased Bowel Sounds, No Rebound and No Guarding
Genito-Urinary: Singletary (Condom cath) and Clear Urine; Negative Hematuria
Extremities: Negative Edema or Erythema
Skin: Warm and Dry
Neurological: Awake
Psychological: Calm
Objective Data
Lab Data
Lab Results
12/23/24 03:05
12/23/24 03:05
PT 16.9 Sec (11.4-14.6) H 12/23/24 03:05
INR 1.35 12/23/24 03:05
Estimated Creat Clear 47 ml/min 12/23/24 03:05
Lactic Acid 2.3 mmol/L (0.7-2.0) H 12/19/24 20:11
Total Bilirubin 11.7 mg/dl (0.2-1.3) H D 12/23/24 03:05
AST 205 U/L (17-59) H 12/23/24 03:05
ALT 1127 U/L (0-50) H* 12/23/24 03:05
Alkaline Phosphatase 83 U/L (38-126) 12/23/24 03:05
Most recent labs reviewed.
Micro Results:
12/21/24 03:35 Blood Culture - Preliminary
Blood/Venous No Growth in 48 hours- Final report to follow
12/18/24 18:40 Blood Culture - Preliminary
Blood/Venous Staphylococcus epidermidis
Gram Stain - Preliminary
12/18/24 18:41 Blood Culture - Preliminary
Blood/Venous Staphylococcus epidermidis
Gram Stain - Preliminary
12/21/24 13:58 Blood Parasites Smear - Preliminary
Blood/Venous
12/18/24 21:24 Urine Culture - Final
Urine NO GROWTH
12/18/24 22:36 MRSA Screen - Final
Nose No Methicillin Resistant Staphylococcus aureus isolated.
12/18/24 14:14 Influenza Types A & B (DANIEL) - Final
Nasal Swab Negative for Influenza A & B, NAAT
Negative results must be combined with clinical observations
and patient history.
Nucleic Acid Amplification test (NAAT)performed on the
[employer] platform.
Peripheral smear reviewed from initial ER draw on 12/18. No blood parasites seen.
Imaging:
12/18/2024 CT chest/abdomen/pelvis: Multiple top normal to slightly enlarged lymph nodes present within the left lower neck and upper chest wall bilaterally. Moderate elevation of the right hemidiaphragm with mild patchy atelectasis in both
posterior lungs. No consolidation to suggest pneumonia. Please see full dictation for additional detail.
Care Review
Plan reviewed with: Physician (Wilbert)
--- NOTE | 2024-12-23 12:44 | PTCARENOTE ---
comfortable on SBT, abg per RT. precedex per work list. mendoza removed, condom cath applied. ett suctions for moderate to large amount sputum.
[2024-12-23 13:51] LABS: Protein/creatinine Ratio 1.5; Urine Protein 70 mg/dl; Urine Sodium 52 mmol/L (30-90)
--- NOTE | 2024-12-23 14:10 | PTCARENOTE ---
patient extubated to 6 liters nasal cannula. tolerated well. voice hoarse. orient to self and month, year. no recollection of events of last week. updated and patient tearful. precedex weaned to off. tube feeds resumed
--- NOTE | 2024-12-23 15:41 | W.PN.HOSP.TC ---
Today's Communication/Plan
-
Assessment / Plan
Assessment / Plan
General: No acute distress, awake and interactive
HEENT: NormoCephalic, ET tube in place, Dobbhoff in place
Respiratory: Clear and Non Labored Respirations
Cardiac: S1/S2 and Regular Rhythm; No Rub or Gallop
GI: Soft, Non Tender, Non Distended and Normal Bowel Sounds, FMS in place
Musculoskeletal: No Edema, no deformity
: Singletary in place
Neuro: Awake, Alert, interactive with hand gestures
Psych: Calm, appropriate interactions, difficult to assess in more depth due to intubation
Mr. Howard is a 54 male with a history of HIV (ON HAART, follows with [facility]), HTN, and enlarged prostate who presented with AMS weakness palpitations. Noted severely lethargic on arrival to ED, became unresponsive, since improved (more awake
alert conversant coherent) with IVF bolus though remained confused disoriented to place and time, possible word finding difficulties. Sinus Tachy but otherwise VSS on room air, ED eval was also significant for severe Anemia Hgb 3.3 leukocytosis
29.4 and GOVIND Cr 2.5. No obvious signs of bleeding. Transfusions ordered however type and screen noted ab's requiring blood from [place], transfusion delayed as a result. With tachycardia elevated white count hx HIV possible GOVIND, significant
concern for severe sepsis opportunistic infection (though severe anemia would also likely result in tachycardia and stress reactive Leukocytosis without infection). Patient admitted to ICU for closer monitoring. Patient in extremis by early
morning next day prompting intubation and emergent transfusion least incompatible blood.
Severe anemia requiring transfusion:
-Hemolytic, initial hemoglobin 3.3
-Status post transfusion 6 units PRBCs so far this admission, used least incompatible blood due to difficulty getting compatible blood quickly
-No schistocytes on peripheral smear, does have significant reticulocytosis
-Significantly and persistently elevated T. bili and LDH with undetectable haptoglobin indicating ongoing hemolysis
-Appreciate hematology input, continue steroids
-Will need premedication with Benadryl and steroids prior to further transfusions of any least incompatible blood products
-RBC genotyping pending
Hypovolemic shock:
-Secondary to hemolysis
-Now resolved, off vasopressors
-Doubt infectious etiology, leukocytosis likely reactive and steroid effect, suspect Staph epidermidis positive blood culture is a contaminant
-May be an element of GI bleeding due to episode of coffee-ground emesis, continue IV PPI twice daily
Upper GI bleeding:
-Head coffee-ground emesis following intubation
-Continue IV PPI twice daily
-Avoid NSAIDs
Ventilator dependent respiratory failure:
-Due to poor mental status which is now improving
-Currently tolerating weaning trial, extubate as able per water quality analyst
GOVIND:
-Possibly superimposed on CKD stage III
-GOVIND likely prerenal in the setting of shock which has now improved
-Significant uremia
-Holding lisinopril-HCTZ and Biktarvy
-Follow-up bladder scan following Singletary removal
-Continue IV fluids with D5 water considering hypernatremia
-Nephrology following
Abnormal LFTs:
-Elevated bilirubin likely secondary to ongoing hemolysis, direct bilirubin appropriately elevated in the setting
-Extremely high ferritin levels with liver injury
-Transaminases appear to have peaked and are improving with resolution of shock
CODE STATUS: Full code
Anticipated Discharge: > 48 hours
Subjective/Interval History
-
Date of Service: December 23, 2024
Patient was seen and examined at bedside this morning. Remains intubated, Dobbhoff placed this morning. He is alert and tolerating weaning trial.
Objective Data
-
Labs:
Laboratory Results
12/23/24 12/23/24 12/23/24
03:05 04:20 12:04
HCO3 26.1 26.8
Sodium 151 H
Potassium 5.0
Chloride 117 H
Carbon Dioxide 26
BUN 108 H*
Creatinine 1.9 H
Glucose 163 H
Calcium 8.6
Total Bilirubin 11.7 H D
AST 205 H
ALT 1127 H*
Alkaline Phosphatase 83
Vital Signs:
Vital Signs
Temp Pulse Resp BP Pulse Ox
99.2 F 81 21 117/67 97
12/23/24 15:37 12/23/24 14:00 12/23/24 14:00 12/23/24 14:00 12/23/24 15:38
I&O
12/22/24 12/23/24 12/24/24
06:59 06:59 06:59
Intake Total 3717.1 / 3898.1 1762.4 / 1828.4 911.6 / 911.6
Output Total 2535 / 2535 4170 / 4270 900 / 900
Balance 1182.1 / 1363.1 -2407.6 / -2441.6 11.6 / 11.6
Review of Systems
-
Unable to obtain full review of systems at this time due to: Acuity
Physical Exam
-
General: Intubated
--- NOTE | 2024-12-23 16:10 | CM ---
CM following re: discharge planning.
Discussed in Rounds, reviewed pt's chart, met with pt.
Per Rounds meeting, pt extubated today to 6L NC, continue supportive care.
Pt lives with spouse Alexandro in an apartment 2nd floor, FF of steps to enter and pt was independent [employer] PATTERN[employer].
PT and OT will evaluate the pt to determine a level of care at discharge.
D/C plan: uncertain at this time and will depend on pt's progress.
CM will follow with discharge plan updates as hospitalization progresses.
--- NOTE | 2024-12-23 16:58 | PTCARENOTE ---
reassessed. oxygen wean to 4 liters. coarse breath sounds, using yankaur. cough productive for large amount white vidal sputum. rhonchi bilaterally. condom cath in place, voiding tea colored urine. call luque in reach
--- NOTE | 2024-12-23 17:49 | PTCARENOTE ---
bladder scan, straight cath per work list. condom cath reapplied
[2024-12-23 18:19] LABS: Glucose - Point of Care 172 mg/dl (70-99)
[2024-12-23 18:26] LABS: Blood Urea Nitrogen 93 mg/dl (9-20); Calcium 8.5 mg/dl (8.4-10.2); Carbon Dioxide 28 mmol/L (22-30); Chloride 120 mmol/L (98-107); Estimated Creatinine Clearance 59 ml/min; Glucose 175 mg/dl (70-99); Potassium 4.9 mmol/L (3.5-5.1); Sodium 156 mmol/L (135-145); eGFR 55.67
--- NOTE | 2024-12-23 18:39 | PTCARENOTE ---
BMP resulted, tiger text to transport medic to inform
[2024-12-23] MEDS: ZYPREXA 5 MG TUBE (19:47)
--- NOTE | 2024-12-23 20:00 | PTCARENOTE ---
Rec'd pt awake, alert, oriented, cooperative, follows commands, denies pain, Stach, bp stable weak distal pulses, + anasarca, o2 decr to 2 liters nc, lungs w/ crackles in bases, sat 100, enc to use IS- reaches 750ml, moist cough, hyper bowel sounds,
fecal mgtm sys to straight drainage bag draining brown liquid stool, irrigated per protocal, large amt gas in bag, R nares dobhoff- jevity 1.5 incr to 60ml/hr & h20 flushed incr to 50ml/hr per order, prosource given, #[address]- HNV
yet this shift
--- NOTE | 2024-12-23 21:16 | W.PN.ONC2 ---
Today's Communication / Plan
-
Suggest workup for infectious causes of a/i hemolysis (EBV, Mycoplasma, CMV), d/w ID.
SPEP c VERONIKA to screen for underlying lymphoproliferative disorder which could cause a/i hemolytic anemia.
Biktarvy association with immune reconstitution syndrome noted but per ID timing is not consistent. Biktarvy is on hold.
Impression
Impression
Hemolytic anemia with warm autoantibody, possible anti-D alloantibody
Sepsis
Severe anemia with RDW greater than 30 macrocytosis due to significant reticulocytosis
Reactive leukocytosis
Upper GI bleed coffee grounds and NG tube
Hypotension
HIV
Shock
Rule out sepsis
Lactic acid 13
Plan
Plan
Review of the peripheral smear showed significant reticulocytosis without schistocytes or targets. Anemia work-up c/s with destructive process with high retic at 12.3%, T bili on presentation ~7 mostly indirect, elevated LDH, hapto undetectable.
Indirect Joseluis positive in IgG and C3.
Elution most consistent with autoantibody although anti-D noted indeterminate between allo or auto.
Possible element of GIB with coffee ground emesis however per no reported bleeding preceding weeks/months and pt first noted to have a new anemia on routine labs in Oct (value unknown). no substrate deficiencies, markedly high ferritin with
liver injury.
hx of recreational drug use however clean x 3 years. UDS negative. not aware of amyl nitrite (popper ) use which can be associated with a AYSE neg intravascular hemolytic anemia.
received 6 units of least incompatible blood with good response, hgb remains stable at 8.0 g/dl.
Tbili increased today but increase appears to be all conjugate bilirubin.
CBC daily. transfuse for hgb < 7.0 g/dl. continue to premedicate with Benadryl, Tylenol and Solu-Medrol if least incompatible product given.
new thrombocytopenia likely related to acute illness, shock liver. continue to monitor.
Continue ICU level support for multiorgan system failure.
Subjective/Objective
Chief Complaint
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
Subjective
Pt clinically improved. Still intubated and unable to give verbal history.
Vital Signs:
Vital Signs
Temp Pulse Resp BP Pulse Ox
97.9 F 113 16 129/83 97
12/23/24 20:00 12/23/24 20:41 12/23/24 20:41 12/23/24 20:00 12/23/24 20:41
Lab Results:
Laboratory Data
WBC 26.8 10^3/uL (4.8-10.8) H 12/23/24 03:05
Hgb 8.6 g/dL (13.0-18.0) L 12/23/24 03:05
Plt Count 72 10^3/uL (130-400) L 12/23/24 03:05
PT 16.9 Sec (11.4-14.6) H 12/23/24 03:05
INR 1.35 12/23/24 03:05
eGFR 55.67 12/23/24 18:03
Physical Exam
HEENT: Jaundice
Cardiology: Normal Sinus Rhythm, S1 and S2
Pulmonary: Clear
GI: Soft
Extremities: No C/C/E
Orders
Orders
Orders From Last 24 Hours
12/23/24 10:02
Add On- LAB Routine
12/24/24 06:00
Complete Blood Count/With Diff IN AM
LDH IN AM
Giqmx-Dpnf-Znbpvyg IN AM
PTT IN AM
Prothrombin Time IN AM
12/25/24 06:00
Complete Blood Count/With Diff IN AM
LDH IN AM
Diuii-Yvzu-Cbhfaci IN AM
12/26/24 06:00
Complete Blood Count/With Diff IN AM
LDH IN AM
Akvbx-Pbxe-Spolcmn IN AM
12/27/24 06:00
Complete Blood Count/With Diff IN AM
LDH IN AM
Brysp-Xtew-Qfudhsa IN AM
12/28/24 06:00
Complete Blood Count/With Diff IN AM
LDH IN AM
Klexp-Weha-Hwjebxv IN AM
12/29/24 06:00
Complete Blood Count/With Diff IN AM
LDH IN AM
Hgvac-Ppuh-Ibzkczm IN AM
12/30/24 06:00
Complete Blood Count/With Diff IN AM
LDH IN AM
Ycumt-Epme-Wqfszag IN AM
12/31/24 06:00
Complete Blood Count/With Diff IN AM
LDH IN AM
Zcjed-Wibs-Vxvlogl IN AM
[2024-12-23 23:27] LABS: Glucose - Point of Care 167 mg/dl (70-99)
--- NOTE | 2024-12-23 23:56 | PTCARENOTE ---
sys reviewed, lungs w/ fine crackles 1/4 up bilat, bladder scanned for 450 ml, str cath for 475ml, new #25 condom cath applied, chg bath done, linens changes
[2024-12-24] VITALS (27 sets, daily range): BP systolic 90–139; BP diastolic 65–89; PULSE 125–126; O2SAT 95–96; BMI 28.7
[2024-12-24 03:34] LABS: % Basophils 0.3 % (0-2); % Lymphocytes 0.7 % (20.5-51.1); % Monocytes 5.8 % (1.7-9.3); % Neutrophils 90.2 % (42.2-75.2); Absolute Basophils 0.1 10^3/uL (0-0.2); Absolute Immature Granulocytes 0.8 10^3/uL (0-0.05); Absolute Lymphocytes 0.2 10^3/uL (1.2-3.4); Absolute Monocytes 1.6 10^3/uL (0.1-0.6); Absolute Neutrophils 24.8 10^3/uL (1.4-6.5); Hematocrit 25.3 % (39.0-52.0); Hemoglobin 7.7 g/dL (13.0-18.0); Mean Corp Hgb Conc. 30.4 g/dL (33.0-37.0); Mean Corpuscular Volume 118.2 fL (80.0-94.0); Mean Platelet Volume 12.2 fL (7.4-10.4); Nucleated Red Blood Cells % 18.4 % (-); Platelet Count 94 10^3/uL (130-400); Red Blood Cell Count 2.14 10^6/uL (4.70-6.10); White Blood Cell Count 27.5 10^3/uL (4.8-10.8)
[2024-12-24 03:39] LABS: INR 1.42; PT 17.6 Sec (11.4-14.6)
[2024-12-24 03:40] LABS: APTT 25.3 Sec (23.4-35.0)
[2024-12-24 03:50] LABS: ALT (SGPT) 697 U/L (0-50); AST (SGOT) 109 U/L (17-59); Albumin 2.8 g/dl (3.5-5.0); Alkaline Phosphatase 99 U/L (38-126); Direct Bilirubin 8.5 mg/dl (0.0-0.4); Total Bilirubin 12.1 mg/dl (0.2-1.3); Total Protein 5.7 g/dl (6.3-8.2)
--- NOTE | 2024-12-24 04:01 | PTCARENOTE ---
sys reviewed, lungs w/ crackles / up,unable to sleep - only taking cat naps
[2024-12-24 04:02] LABS: LDH 1354 U/L (120-246)
[2024-12-24] MEDS: NOVOLOG FLEXPEN-MODERATE RESISTANCE 1 UNITS SC (05:24)
[2024-12-24 05:34] LABS: Glucose - Point of Care 170 mg/dl (70-99)
--- NOTE | 2024-12-24 05:45 | PTCARENOTE ---
bladder scanned for 404 ml, straight cathed for 425 ml urine
[2024-12-24] MEDS: SODIUM CHLORIDE 3% FOR INHALATION 1 VIAL INH ×2 (07:14→19:55)
[2024-12-24] MEDS: VENTOLIN NEBULES 2.5 MG INH ×2 (07:14→19:55)
[2024-12-24 07:37] LABS: Erythropoietin (EPO) 57 mU/mL (4-27)
[2024-12-24] MEDS: MIRALAX 17 GRAMS TUBE (08:01)
[2024-12-24] MEDS: NSS (PRESERVATIVE FREE) 10 ML IV ×2 (08:02→19:02)
[2024-12-24] MEDS: ZYPREXA 5 MG TUBE ×2 (08:02→19:01)
[2024-12-24] MEDS: PROTONIX IV 40 MG IV ×2 (08:02→19:02)
--- NOTE | 2024-12-24 08:43 | PTCARENOTE ---
Addendum entered by Cara Melton RN 12/24/24 10:43:
Singletary reinserted for retention, patient tolerated well. orders noted. remains tachycardic
Original Note:
report received, assessments per work list. patient anxious. denies pain.monitor sinus tach with self limited PAT. right triple lumen patent with good blood returns. generalized anasarca. jaundiced. Dobbhoff placement verified by air auscultation.
tube feeds per order. abdomen distended, fecal management system in place. increased flatus, small amount liquid stool.spouse at bedside. emotional support given. hospitalist, resident in to evaluate patient . updated
--- NOTE | 2024-12-24 08:48 | W.PN.ONC2 ---
Today's Communication / Plan
-
.
Impression
Impression
a/w Hgb ~3g/dL, hypovolemic shock
Hemolytic anemia with warm autoantibody, possible anti-D alloantibody. IgG 4+, Compliment 3+
macrocytosis secondary to reticulocytosis
elevated LFTs, Tbili 12.1, dbili 8.5
Sepsis
Reactive leukocytosis
Upper GI bleed coffee grounds and NG tube
HIV
acute respiratory failure/VDRF intubated 12/19, extubated 12/23
thrombocytopenia improving
hypernatremia
GOVIND improving
Plan
Plan
peripheral smear review 12/19 showed significant reticulocytosis without schistocytes or targets.
Anemia work-up c/s with destructive process with high retic at 12.3%, T bili on presentation ~7 mostly indirect, elevated LDH, hapto undetectable. Indirect Joseluis positive in IgG and C3.
Elution most consistent with autoantibody although anti-D noted indeterminate between allo or auto.
Possible element of GIB with coffee ground emesis however per no reported bleeding preceding weeks/months and pt first noted to have a new anemia on routine labs in Oct (value unknown). no substrate deficiencies, markedly high ferritin with
liver injury.
hx of recreational drug use however clean x 3 years. UDS negative. not aware of amyl nitrite (popper ) use which can be associated with a AYSE neg intravascular hemolytic anemia.
CBC daily. transfuse for hgb < 7.0 g/dl. continue to premedicate with Benadryl, Tylenol and Solu-Medrol if least incompatible product given.
new thrombocytopenia likely related to acute illness, shock liver. continue to monitor.
check SPEP and peripheral flow
f/u G6PD
f/u CD4
Alexandro at bedside, Updates provided and questions answered
Continue ICU level support for multiorgan system failure.
Subjective/Objective
Subjective
awake, alert, and conversational
denies pain
denies overt bleeding
denies sob at rest
Vital Signs:
Vital Signs
Temp Pulse Resp BP Pulse Ox
99.8 F 136 18 139/81 97
12/24/24 07:47 12/24/24 08:30 12/24/24 08:30 12/24/24 08:01 12/24/24 08:30
Lab Results:
Laboratory Data
WBC 27.5 10^3/uL (4.8-10.8) H 12/24/24 03:16
Hgb 7.7 g/dL (13.0-18.0) L 12/24/24 03:16
Plt Count 94 10^3/uL (130-400) L D 12/24/24 03:16
PT 17.6 Sec (11.4-14.6) H 12/24/24 03:16
INR 1.42 12/24/24 03:16
APTT 25.3 Sec (23.4-35.0) 12/24/24 03:16
eGFR 55.67 12/23/24 18:03
Physical Exam
urine yellow
HEENT: Jaundice
Rectal: Other (brown stool)
--- NOTE | 2024-12-24 08:53 | W.PN.INTV ---
Today's Communication / Plan
Recommendations
See below
Assessment
-
54-year-old male with past medical history of HIV on HAART, who was admitted to ICU for evaluation of weakness/lethargy and hemoglobin of 3.3. Over the weekend he received 6 units of unmatched PRBC, due to right lower antibody seen on type and
cross. Due to hypotension and rising lactate, patient was intubated and placed on 3 pressors initially.
Last 24 hours:
- extubated on 12/23
-Fluid balance, +460
-Hemoglobin has stayed stable after 6 units of PRBCs, 7.7 this morning. Platelets 94K
-AST 109, ALT 697�continue to improve
-LDH and bilirubin rising (12.1), suggestive of ongoing hemolysis
-EGD performed 12/20, esophagitis and erythematous antral mucosa, no active bleeding noted
-Currently on dexamethasone 40. On Jevity tube feeds. Started on xyprexa, continued anxiety
� No longer on pressors or Precedex. Continue D5W for fluids
#Acute respiratory failure
S/p intubation on 12/19
s/p extubation on 12/23
currently sat 97% on RA
Last ABG on 12/23�pH 7.48, bicarb 26.8, CO2 36
#Shock with lactic acidosis, likely secondary to hypovolemia with symptomatic anemia
Status post 6 units unmatched packed red blood cells
Lactic acid improved. Off all pressors.
Patient currently on 40 mg of dexamethasone daily. Continue olanzapine for tremors and anxiety.
Start patient on Ativan as needed BuSpar 7.5 twice daily
#Acute retention
Singletary replaced
Start Flomax
#Hyperglycemia
Start patient on aspart 3 every 6 hours
If continued elevated glucose start basal insulin tonight
#Severe anemia
History of pomalidomide therapy. Possible hemolytic anemia
Status post 6 units of packed red blood cells, unmatched
Rising LDH and bilirubin and BUN, continue to monitor
Liver imaging negative
Upper GI scope done on 12/20 showing esophagitis and antral mucosal erythema
Continue PPI 40 twice daily
Renal on board, appreciate input
CBC in afternoon
#Hypernatremia
Continue D5W at 75 mL/h
Recheck labs tomorrow morning
#GOVIND
Hold lisinopril and hydrochlorothiazide
Good response to IV fluids and good urine output. Transition fluids to D5W
Mild hyperkalemia due to large-volume blood transfusion
Single dose Lasix 40 mg IV given
Continue to monitor fluid status
#History of HIV
Hold Biktarvy
Last viral load was undetectable and CD4 count was 367 in October 2024
Zosyn and vancomycin discontinued, ID on board appreciate inputs
Patient followed at [facility] by infectious disease
#Thrombocytopenia
Continue to trend
Hematology on board, appreciate input
SCDs
FULL
Subjective Dataa
Subjective Data
Date of Service:
Date of Service: December 24, 2024
Patient extubated and conversant. States he has heightened anxiety levels, likely secondary to high-dose steroids. Patient is having bowel movements and passing gas. He states he has no headaches, nausea, vomiting, numbness or tingling in
extremities. He states that when he closes his eyes he relives moments leading up to his hospitalization.
Vitals today are 139/81, pulse 136, respirations 18, temperature 99.8, 97% on room air.
Chief Complaint: Press Operator Carbon Blocks Follow Up
Review of Systems
General: Sweats
Objective Data
Data Reviewed
Vital Signs / I&O / Oxygen:
Vital Signs
Temp Pulse Resp BP Pulse Ox
99.8 F 136 18 139/81 97
12/24/24 07:47 12/24/24 08:30 12/24/24 08:30 12/24/24 08:01 12/24/24 08:30
Intake and Output
03/12/24/24 12/25/24
06:59 06:59 06:59
Intake Total 1762.4 / 1828.4 3521.6 / 3706.6 570 / 570
Output Total 4170 / 4270 3650 / 3650
Balance -2407.6 / -2441.6 -128.4 / 56.6 570 / 570
SaO2 [CPAP] 98
SaO2 [A/C] 96
SaO2 97
Nasal Cannula flow liters per 2
minute
Physical Exam
General: Comfortable
HEENT: Normocephalic and Anicteric
Cardiovascular: S1-S2
Respiratory: Clear and Non-Labored Respirations
GI: Soft, Distended and Normal Bowel Sounds
Skin: Warm
Labs/Micro/Reports
Lab Data
12/24/24 03:16
Laboratory Results
12/23/24 12/24/24
12:04 03:16
PT 17.6 H
INR 1.42
APTT 25.3
pH 7.48 H
pCO2 36
pO2 101
HCO3 26.8
O2 Delivery Level
Microbiology
12/21/24 03:35 Blood/Venous Blood Culture - Preliminary
No Growth in 72 hours- Final report to follow
12/18/24 18:40 Blood/Venous Blood Culture - Preliminary
Staphylococcus epidermidis
12/18/24 18:40 Blood/Venous Gram Stain - Preliminary
12/18/24 18:41 Blood/Venous Blood Culture - Preliminary
Staphylococcus epidermidis
12/18/24 18:41 Blood/Venous Gram Stain - Preliminary
12/21/24 13:58 Blood/Venous Blood Parasites Smear - Preliminary
[2024-12-24] MEDS: DECADRON 60 MG IV (09:07)
[2024-12-24 09:17] LABS: Blood Urea Nitrogen 80 mg/dl (9-20); Calcium 8.4 mg/dl (8.4-10.2); Carbon Dioxide 27 mmol/L (22-30); Chloride 121 mmol/L (98-107); Estimated Creatinine Clearance 64 ml/min; Glucose 182 mg/dl (70-99); Potassium 4.6 mmol/L (3.5-5.1); Sodium 156 mmol/L (135-145); eGFR > 60.00
[2024-12-24] MEDS: ATIVAN 1 MG IV (11:28)
[2024-12-24] MEDS: FLOMAX 0.4 MG TUBE (11:28)
[2024-12-24 11:35] LABS: Glucose - Point of Care 217 mg/dl (70-99)
--- NOTE | 2024-12-24 11:47 | W.PN.NEPH.PH ---
Today's Communication / Plan
-
see plan
Assessment/Plan
-
IMP:
GOVIND-no baseline cr
Hypernatremia
severe anemia hgb 3.3, hct 9.0
Acute Respiratory Failure, Vent Dependent Resp Failure
Lactic Acidosis likely 2/2/ severe anemia
Hypovolemic Shock
Coffee ground emesis following intubation NGT placement
Shock Liver likely 2/2 severe anemia hypotension as above
Possible septic shock
Troponin Elevation -likely Non-ischemic [place]
hyperbilirubinemia
essential hypertension
BPH
HIVv
diffuse lymphadenopathy on CT chest/abdomen
Thrombocytopenia
Nephrolithiasis
Hyerpphosphatemia
Plan:
A/w severe anemia felt to be hemolytic, VDRF, shock
GOVIND-no baseline cr , cr improving to 1.4
UA on admit relatively bland, bld + but no RBC, alb ++, U PCR 1.5gm/gm of cr
reinserted mendoza for retention and failed VT
renal US non obst renal caliculi
Bp are stable , holding ACEI, HCTZ and lasix
azotemia could be from prerenal and steroids related-improving
persistent hypernatremia-check U osmo, FWD 6lit, increase D5w to 100cc/hr, also FWF up to 50cc/hr
hemolytic anemia, no reported schistocytes per heme noted-hopefully it is not TMA
hyperbilirubinemia worsening, LDH and LFTs are better
abx per ID, w/u in progress
steroids per heme
d/w nursing
high risk encounter
-
-
Date of Service: December 24, 2024
CC / HPI / ROS
-
Chief Complaint:
GOVIND, hypernatremia, Azotemia
History of Present Illness:
cr better at 1.4, non oliguric, failed VT -mendoza reinserted
BUN improving, sodium high at 156
wt is down
Bp stable but tachy
hb low 7.7, plt 94, wbc 27.5
Review of Systems:
no cp or sob at rest
no n/v. remains NPO
no fever
Labs
-
Labs:
Sodium 156 mmol/L (135-145) H 12/24/24 03:16
Potassium 4.6 mmol/L (3.5-5.1) 12/24/24 03:16
Chloride 121 mmol/L (98-107) H 12/24/24 03:16
Carbon Dioxide 27 mmol/L (22-30) 12/24/24 03:16
BUN 80 mg/dl (9-20) H 12/24/24 03:16
Creatinine 1.4 mg/dL (0.7-1.3) H 12/24/24 03:16
eGFR > 60.00 12/24/24 03:16
Glucose 182 mg/dl (70-99) H 12/24/24 03:16
Calcium 8.4 mg/dl (8.4-10.2) 12/24/24 03:16
Phosphorus 6.2 mg/dl (2.5-4.5) H 12/23/24 03:05
Albumin 2.8 g/dl (3.5-5.0) L 12/24/24 03:16
Physical Exam
-
Vital Signs:
Vital Signs
Temp Pulse Resp BP Pulse Ox
99.3 F 125 35 121/83 96
12/24/24 11:06 12/24/24 10:00 12/24/24 10:00 12/24/24 10:00 12/24/24 10:00
Cardiovascular:: Regular rate and rhythm
Respiratory:: Bilateral: Coarse
Lung Excursion:: Normal
Abdomen:: Nontender and Soft
Extremity Edema:: None: Bilateral:
Mendoza Catheter: Yes
[2024-12-24] MEDS: BUSPAR 7.5 MG PO ×2 (11:59→19:01)
[2024-12-24] MEDS: D5W 1000 IV ×2 (11:59→21:16)
[2024-12-24] MEDS: NOVOLOG FLEXPEN 3 UNITS SC (12:00)
[2024-12-24] MEDS: NOVOLOG FLEXPEN-MODERATE RESISTANCE 3 UNITS SC (12:00)
--- NOTE | 2024-12-24 12:34 | PTCARENOTE ---
reassessed. medicated with ativan per prn order. remains tachycardic 120's. sleeping short periods. orders received. labs sent
[2024-12-24] MEDS: DAILY VITAMIN/CENTRUM 15 ML TUBE (12:40)
[2024-12-24 12:42] LABS: Hematocrit 24.2 % (39.0-52.0); Hemoglobin 7.4 g/dL (13.0-18.0); Mean Corp Hgb Conc. 30.6 g/dL (33.0-37.0); Mean Corpuscular Hgb 36.6 pg (27.0-31.0); Mean Corpuscular Volume 119.8 fL (80.0-94.0); Mean Platelet Volume 11.7 fL (7.4-10.4); Platelet Count 104 10^3/uL (130-400); Red Blood Cell Count 2.02 10^6/uL (4.70-6.10); White Blood Cell Count 27.4 10^3/uL (4.8-10.8)
--- NOTE | 2024-12-24 13:33 | PTOTSP ---
Dysphagia Evaluation
Patient presents with signs concerning for oral/pharyngeal dysphagia likely related to weakness from acute factors but has chronic risk factors for complications from dysphagia (i.e., severe anemia, s/p VDRF; HIV). Patient not consistently
initiating a swallow. He is at risk for changes to sensory response to aspiration given acute dysphonia and at risk for decreased airway clearance in case of aspiration given weak volitional cough.
Recommend:
1. NPO - non-oral means in place
2. Medications via non-oral means
3. Oral care 3-5x daily
4. Dysphagia tx at the acute care level to determine if/when appropriate for aspiration risk hydration protocol, diet initiation, or if video swallow study appropriate
--- NOTE | 2024-12-24 13:37 | W.PN.ID1 ---
Date of Service
Date of Service: December 24, 2024
Today's Communication
Observe off antibiotics. Continue supportive measures.
Assessment / Plan
Profound anemia
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
Hypotension;
- Off pressors
Leukocytosis
-Likely steroid effect; patient remains on Decadron
Lactic acidosis; improved
Bacteremia with coagulase-negative staph; most likely contaminant
Hyperbilirubinemia
GOVIND
HIV
- Most recent VL = 22; CD4 = 391; Biktarvy (currently on hold)
HTN
BPH
HCV
Recommendations:
EBV serology and viral load, Parvovirus B19 PCR, mycoplasma pneumoniae antibodies are pending. Will also check G6PD.
Holding Biktarvy.
- Will restart antiretroviral therapy when patient more stable.
Observe closely off antibiotics.
Follow WBC / temps.
Continue with supportive measures.
����������������������������������������������������������
Chief Complaint
-: Clinical Sepsis and Other (Anemia. HIV positive.)
Subjective / Review of Systems
Patient seen and examined. Now off ventilator.
Vital Signs / Physical Exam
Vital Signs
Vital Signs
Temp Pulse Resp BP Pulse Ox
99.3 F 122 25 117/66 96
12/24/24 11:06 12/24/24 13:00 12/24/24 13:00 12/24/24 13:00 12/24/24 13:00
Physical Exam
Constitutional: Comfortable, Acutely Ill and Non-toxic
Head: Normocephalic
Eyes: No Conjunctival Hemorrhage and Other (Scleral icterus)
Cardiovascular: Regular Rate (Tachycardic) and S1/S2; Negative S3/S4 or Murmur
Pulmonary: Coarse; Negative Wheezes or Rales
Gastrointestinal: Soft, Non Distended, Decreased Bowel Sounds, No Rebound and No Guarding
Genito-Urinary: Singletary (Condom cath) and Clear Urine; Negative Hematuria
Extremities: Negative Edema or Erythema
Skin: Warm and Dry
Neurological: Awake
Psychological: Calm
Objective Data
Lab Data
Lab Results
12/24/24 12:20
12/24/24 03:16
PT 17.6 Sec (11.4-14.6) H 12/24/24 03:16
INR 1.42 12/24/24 03:16
APTT 25.3 Sec (23.4-35.0) 12/24/24 03:16
Estimated Creat Clear 64 ml/min 12/24/24 03:16
Lactic Acid 2.3 mmol/L (0.7-2.0) H 12/19/24 20:11
Total Bilirubin 12.1 mg/dl (0.2-1.3) H 12/24/24 03:16
AST 109 U/L (17-59) H 12/24/24 03:16
ALT 697 U/L (0-50) H* 12/24/24 03:16
Alkaline Phosphatase 99 U/L (38-126) 12/24/24 03:16
Most recent labs reviewed.
Micro Results:
12/21/24 03:35 Blood Culture - Preliminary
Blood/Venous No Growth in 72 hours- Final report to follow
12/18/24 18:40 Blood Culture - Preliminary
Blood/Venous Staphylococcus epidermidis
Gram Stain - Preliminary
12/18/24 18:41 Blood Culture - Preliminary
Blood/Venous Staphylococcus epidermidis
Gram Stain - Preliminary
12/21/24 13:58 Blood Parasites Smear - Preliminary
Blood/Venous
12/18/24 21:24 Urine Culture - Final
Urine NO GROWTH
12/18/24 22:36 MRSA Screen - Final
Nose No Methicillin Resistant Staphylococcus aureus isolated.
12/18/24 14:14 Influenza Types A & B (DANIEL) - Final
Nasal Swab Negative for Influenza A & B, NAAT
Negative results must be combined with clinical observations
and patient history.
Nucleic Acid Amplification test (NAAT)performed on the
[employer] platform.
Peripheral smear reviewed from initial ER draw on 12/18. No blood parasites seen.
Imaging:
12/18/2024 CT chest/abdomen/pelvis: Multiple top normal to slightly enlarged lymph nodes present within the left lower neck and upper chest wall bilaterally. Moderate elevation of the right hemidiaphragm with mild patchy atelectasis in both
posterior lungs. No consolidation to suggest pneumonia. Please see full dictation for additional detail.
--- NOTE | 2024-12-24 13:45 | CM ---
CM following re: discharge planning.
Discussed in Rounds, reviewed pt's chart, met with pt.
Per Rounds meeting, pt extubated yesterday, requires 2L NC of O2, continue supportive care.
Pt lives with spouse Alexandro in an apartment 2nd floor, FF of steps to enter and pt was independent DIRECTOR OF FINANCIAL PLANNING.
PT and OT will evaluate the pt to determine a level of care at discharge.
D/C plan: uncertain at this time and will depend on pt's progress.
CM will follow with discharge plan updates as hospitalization progresses
[2024-12-24 14:18] LABS: Osmolality Urine 660 mOsm/kg (300-900)
[2024-12-24 14:32] LABS: Urine Sodium 11 mmol/L (30-90)
[2024-12-24] MEDS: THORAZINE 25 MG IM (15:03)
--- NOTE | 2024-12-24 15:08 | PTCARENOTE ---
Addendum entered by Cara Melton RN 12/24/24 15:15:
per patient coordinator, dobhoff with good placement, ok to reinitiate tube feeds per orders
Original Note:
dobhoff clooged. removed and reinserted. awaiting xray report. Thorazine given for persistent hiccoughs
--- NOTE | 2024-12-24 16:08 | W.PN.HOSP.TC ---
Today's Communication/Plan
-
Assessment / Plan
Assessment / Plan
General: No acute distress, awake and interactive
HEENT: NormoCephalic, Dobbhoff in place
Respiratory: Clear and Non Labored Respirations
Cardiac: S1/S2 and Regular Rhythm; No Rub or Gallop
GI: Soft, Non Tender, Non Distended and Normal Bowel Sounds, FMS in place
Musculoskeletal: No Edema, no deformity
: Singletary in place
Neuro: Awake, Alert, interactive with hand gestures
Psych: Calm, appropriate interactions, difficult to assess in more depth due to intubation
Mr. Howard is a 54 male with a history of HIV (ON HAART, follows with [place] ID), HTN, and enlarged prostate who presented with AMS weakness palpitations. Noted severely lethargic on arrival to ED, became unresponsive, since improved (more awake
alert conversant coherent) with IVF bolus though remained confused disoriented to place and time, possible word finding difficulties. Sinus Tachy but otherwise VSS on room air, ED eval was also significant for severe Anemia Hgb 3.3 leukocytosis
29.4 and GOVIND Cr 2.5. No obvious signs of bleeding. Transfusions ordered however type and screen noted ab's requiring blood from [place], transfusion delayed as a result. With tachycardia elevated white count hx HIV possible GOVIND, significant
concern for severe sepsis opportunistic infection (though severe anemia would also likely result in tachycardia and stress reactive Leukocytosis without infection). Patient admitted to ICU for closer monitoring. Patient in extremis by early
morning next day prompting intubation and emergent transfusion least incompatible blood.
Severe anemia requiring transfusion:
-Suspect autoimmune hemolytic, initial hemoglobin 3.3
-Status post transfusion 6 units PRBCs so far this admission, used least incompatible blood due to difficulty getting compatible blood quickly
-No schistocytes on peripheral smear, does have significant reticulocytosis
-Significantly and persistently elevated T. bili and LDH indicating ongoing hemolysis
-Appreciate hematology input, continue steroids
-Awaiting serologies, flow cytometry, SPEP/VERONIKA
-Will need premedication with Benadryl and steroids prior to further transfusions of any least incompatible blood products
-RBC genotyping pending
-Started on Ativan as needed for anxiety especially considering high-dose steroids
Hypovolemic shock:
-Secondary to hemolysis
-Now resolved, off vasopressors
-Doubt infectious etiology, leukocytosis likely reactive and steroid effect, suspect Staph epidermidis positive blood culture is a contaminant
-May be an element of GI bleeding due to episode of coffee-ground emesis, continue IV PPI twice daily
Upper GI bleeding:
-Head coffee-ground emesis following intubation
-EGD 12/20 showed esophagitis
-Continue IV PPI twice daily
-Avoid NSAIDs
Ventilator dependent respiratory failure:
-Due to poor mental status which has now resolved to baseline
-Extubated 12/23
-Dobbhoff remains in place for tube feedings medications considering current dysphagia to be reevaluated by TRACTOR TRAILER OPERATOR
GOVIND:
-Possibly superimposed on CKD stage III
-GOVIND likely prerenal in the setting of shock which has now improved
-Significant uremia
-Holding lisinopril-HCTZ and Biktarvy
-Failed voiding trial, Singletary reinserted
-Nephrology following
Abnormal LFTs:
-Elevated bilirubin likely secondary to ongoing hemolysis, direct bilirubin appropriately elevated in the setting
-Extremely high ferritin levels with liver injury
-Transaminases appear to have peaked and are continuing to improve with resolution of shock
Hyponatremia:
-Increase free water flushes with tube feeds and increased D5W rate
CODE STATUS: Full code
Anticipated Discharge: > 48 hours
Subjective/Interval History
-
Date of Service: December 24, 2024
Patient was seen and examined at bedside this morning. Successfully extubated yesterday. Dobbhoff remains in place. He is alert and oriented, clearly distraught and overwhelmed when recounting the events leading to his hospitalization.
Objective Data
-
Labs:
Laboratory Results
03/25/25 03/25/25
03:16 12:20
WBC 27.4 H
Hgb 7.4 L
Hct 24.2 L
Plt Count 104 L
Sodium 156 H
Potassium 4.6
Chloride 121 H
Carbon Dioxide 27
BUN 80 H
Creatinine 1.4 H
Glucose 182 H
Calcium 8.4
Total Bilirubin 12.1 H
AST 109 H
ALT 697 H*
Alkaline Phosphatase 99
Vital Signs:
Vital Signs
Temp Pulse Resp BP Pulse Ox
99.1 F 124 25 112/77 95
12/24/24 15:15 12/24/24 15:00 12/24/24 15:00 12/24/24 15:00 12/24/24 15:00
I&O
12/23/24 12/24/24 12/25/24
06:59 06:59 06:59
Intake Total 1762.4 / 1828.4 3521.6 / 3706.6 1914 / 1914
Output Total 4170 / 4270 3650 / 3650 1050 / 1050
Balance -2407.6 / -2441.6 -128.4 / 56.6 865 / 865
Review of Systems
-
History Source: Patient
All other systems: Reviewed and negative
Physical Exam
-
General: No Apparent Distress
--- NOTE | 2024-12-24 16:51 | PTCARENOTE ---
reassessed. drowsy post Thorazine administration. hiccoughs resolved. lungs with coarse diminished breath sounds. assisted with IS, able to expectorate thick white sputum. call luque in reach.
[2024-12-24 17:07] LABS: Glucose - Point of Care 220 mg/dl (70-99)
[2024-12-24] MEDS: NOVOLOG FLEXPEN 6 UNITS SC ×2 (17:30→23:40)
[2024-12-24] MEDS: NOVOLOG FLEXPEN-HIGH RESISTANCE 4 UNITS SC (17:30)
[2024-12-24 18:56] LABS: Blood Urea Nitrogen 67 mg/dl (9-20); Calcium 8.1 mg/dl (8.4-10.2); Carbon Dioxide 27 mmol/L (22-30); Chloride 119 mmol/L (98-107); Estimated Creatinine Clearance 69 ml/min; Glucose 221 mg/dl (70-99); Potassium 4.8 mmol/L (3.5-5.1); Sodium 152 mmol/L (135-145); eGFR > 60.00
--- NOTE | 2024-12-24 20:00 | PTCARENOTE ---
Rec'd pt resting in bed, very weak, able to follow commands, oriented, denies pain, Sinus tach, bp stable, weak distal pulses,jaundice, no hiccoughs, o2 2 liters nc, lungs w/ crackles in bases, decr in bases, resp shallow, occas cough, enc to use
IS- reaches 1000, + bowel sounds, fecal mgmt sys to str drainage bag draining brown liquid stool, irrigated per protocal, R nares dobhoff- rec jevity 1.5 at 60ml/hr & 50ml/hr h20 flush, no n/v, mendoza draining tea colored urine, Dr Ford notified
of chem results- no new orders.
[2024-12-24 23:33] LABS: Glucose - Point of Care 185 mg/dl (70-99)
[2024-12-24] MEDS: NOVOLOG FLEXPEN-HIGH RESISTANCE 2 UNITS SC (23:40)
[2024-12-25] VITALS (68 sets, daily range): BP systolic 0–108; BP diastolic 0–98; PULSE 2–144; BMI 27.3
--- NOTE | 2024-12-25 00:09 | PTCARENOTE ---
sys reviewed, still drowsy, weak , easily arousable, CHG bath done, linens changed, R SC dsg changed per protocal, lungs w/ left base crackles, cont to be tachypneic
[2024-12-25] MEDS: ATIVAN 1 MG IV (02:55)
--- NOTE | 2024-12-25 03:00 | PTCARENOTE ---
Sinus tach up to 144, BP 97/50, RR 48, shallow, sat 95, Denies pain, lungs unch, K Sam, LAND SURVEYOR ASSISTANT notified and in to see pt, labs sent, ativan 1mg iv given
[2024-12-25 03:20] LABS: Venous Blood Gas B.E. -0.1 mmol/L (-4 to +4); Venous Blood Gas HCO3 23.9 mmol/L (22-27); Venous Blood Gas O2 Sat % 96.6 %; Venous Blood Gas pCO2 36 mmHg (35-48); Venous Blood Gas pH 7.43 (7.32-7.43); Venous Blood Gas pO2 84 mmHg (30-50)
[2024-12-25 03:21] LABS: Venous Blood Gas O2 Therapy Oxygen/Room Air NC
[2024-12-25 03:23] LABS: Ammonia 29 umol/L (9-30)
[2024-12-25 03:24] LABS: ALT (SGPT) 428 U/L (0-50); AST (SGOT) 65 U/L (17-59); Albumin 2.5 g/dl (3.5-5.0); Alkaline Phosphatase 97 U/L (38-126); Blood Urea Nitrogen 68 mg/dl (9-20); Calcium 7.9 mg/dl (8.4-10.2); Carbon Dioxide 26 mmol/L (22-30); Chloride 120 mmol/L (98-107); Direct Bilirubin 9.5 mg/dl (0.0-0.4); Estimated Creatinine Clearance 64 ml/min; Glucose 174 mg/dl (70-99); Potassium 4.2 mmol/L (3.5-5.1); Sodium 153 mmol/L (135-145); Total Bilirubin 12.6 mg/dl (0.2-1.3); Total Protein 5.6 g/dl (6.3-8.2); Triglycerides 235 mg/dl (10-149); eGFR > 60.00
[2024-12-25 03:35] LABS: LDH 1075 U/L (120-246)
[2024-12-25 03:49] LABS: % Basophils 0.3 % (0-2); % Immature Granulocytes 2.5 % (0-0.5); % Lymphocytes 1.1 % (20.5-51.1); % Monocytes 3.6 % (1.7-9.3); % Neutrophils 92.5 % (42.2-75.2); Absolute Basophils 0.1 10^3/uL (0-0.2); Absolute Immature Granulocytes 0.6 10^3/uL (0-0.05); Absolute Lymphocytes 0.3 10^3/uL (1.2-3.4); Absolute Monocytes 0.8 10^3/uL (0.1-0.6); Absolute Neutrophils 21.5 10^3/uL (1.4-6.5); Hematocrit 23.7 % (39.0-52.0); Hemoglobin 7.3 g/dL (13.0-18.0); Mean Corp Hgb Conc. 30.8 g/dL (33.0-37.0); Mean Corpuscular Hgb 37.1 pg (27.0-31.0); Mean Corpuscular Volume 120.3 fL (80.0-94.0); Mean Platelet Volume 12.1 fL (7.4-10.4); Nucleated Red Blood Cells % 8.7 % (-); Platelet Count 130 10^3/uL (130-400); Red Blood Cell Count 1.97 10^6/uL (4.70-6.10); White Blood Cell Count 23.3 10^3/uL (4.8-10.8)
--- NOTE | 2024-12-25 04:06 | PTCARENOTE ---
Kelsey Vargas SUPERVISOR FRUIT GRADING aware of all lab results, Pt remains in ST up to 140, RR still in 40's, lethargic after ativan
[2024-12-25] MEDS: NEO-SYNEPHRINE 250 IV (05:05)
--- NOTE | 2024-12-25 05:11 | PTCARENOTE ---
Kelsey Vargas np aware of bp, Cesar gtt started per order- see flow sheet for titrations, cont w/ tachypneic, HR 137, ERICKSON 3mm, sluggish, lethargic but arousable, oriented to self, disoriented to place/time
[2024-12-25] MEDS: NOVOLOG FLEXPEN 6 UNITS SC (05:36)
[2024-12-25] MEDS: NOVOLOG FLEXPEN-HIGH RESISTANCE 2 UNITS SC (05:37)
[2024-12-25 05:45] LABS: Glucose - Point of Care 165 mg/dl (70-99)
[2024-12-25] MEDS: PITRESSIN 100 IV (05:47)
--- NOTE | 2024-12-25 05:50 | PTCARENOTE ---
Kelsey cervantes NP aware of max tamiko, vasopressin started at 0.03 units per order
[2024-12-25] MEDS: D5W 1000 IV (06:01)
[2024-12-25] MEDS: LEVOPHED 250 IV (06:15)
--- NOTE | 2024-12-25 06:15 | PTCARENOTE ---
Levo gtt started @ 2mic per protocal- see flow sheet for titrations
[2024-12-25] MEDS: SODIUM CHLORIDE 3% FOR INHALATION 1 VIAL INH (07:59)
[2024-12-25] MEDS: VENTOLIN NEBULES 2.5 MG INH (07:59)
[2024-12-25] MEDS: MIRALAX TUBE (08:11)
[2024-12-25] MEDS: PROTONIX IV 40 MG IV (08:17)
[2024-12-25] MEDS: DAILY VITAMIN/CENTRUM 15 ML TUBE (08:18)
[2024-12-25] MEDS: DECADRON 60 MG IV (08:18)
[2024-12-25] MEDS: ZYPREXA 5 MG TUBE (08:18)
[2024-12-25] MEDS: NSS (PRESERVATIVE FREE) 10 ML IV (08:18)
[2024-12-25] MEDS: BUSPAR 7.5 MG PO (08:18)
[2024-12-25] MEDS: FLOMAX TUBE (08:30)
--- NOTE | 2024-12-25 08:50 | PTCARENOTE ---
Rec'd pt at 0730 resting in bed- Rec'd pt with eyes open and will mumble a few words but overall difficult to understand. Only understandable conversation was that he wanted a water swab. Seemed to deny pain. DOUGLAS but very weak. Pt overall very
tachypnic and hypotensive. ERICKSON at 3mm. Color is icteric. Areas on L and R feet that are cyanotic/dusky- circled. No increaseRespirs are labored, tachypnic in the 40's. Sats on 2l are 97%. BS are decreased with few base crackles. At 0830 after
Beni updated pt placed on Bipap 12/5 +6L. Currently some difficulty getting sats to be consistent - running 80-90's but respirs still labored. Monitor SR in the 140's. Bp's are documented. Vasopressin at 0.03 units/Iv Cesar at 200 mcg and
Levophed being titrated up- currently at 22 mcg all infusing via R SQ TLC. IV D5w infusing at 100 ml/hr. Checked CVP via distal port of TLC and readings 4-5. Currently NSS bolus hung after Dr. Bazan updated. + pulses. +2 gen anasarca. VS as
documented. Abd is firm and distended with hypoactive BS. R nare feeding tube with Jevity 1.5 at 60 ml/hr with 50 ml/hr water flush. 150 mls aspirated and reinstilled. Tube feed color. FMS in place. Mod amt of liquid brown stool leakage around but
drained 200 additional mls in the bag. Flushed with [address] Minimal amt of tea colored urine. [facility] TLC site wnl Skin and mouth care given. Repositioned. Pts in with pt and updated.
--- NOTE | 2024-12-25 09:40 | PTCARENOTE ---
Pts HR noted at 0857 to be slowing down to 106- pts respirs became more agonal on the Bipap and started ambuing pt, Dr. Bazan paged NSS 1L hung wide open and resp therapy in, pt not responsive, had emesis in his mouth. Abd with increase in
distendion- at 0906 loss of pulse and CODE 9 called- see code record. 0936 pt in PEA and CODE stopped at the wishes of pts . at the bedside and very tearful. Support given. Pastoral care with pts .
--- NOTE | 2024-12-25 09:52 | W.PN.UPDATE ---
Update Note
Progress Note Update
Patient suffered a cardiac arrest this morning. Overnight he was hypotensive requiring multiple vasopressors. Febrile this morning to 100.7 �F. Became increasingly tachypneic as the night progressed. CXR this morning showed left lower lobe
atelectasis. ACLS/CPR ongoing for 30 minutes. Shocked once for coarse V-fib. has decided to transition to comfort care and patient . Emotional support was provided. Relay Associate at bedside.
--- NOTE | 2024-12-25 09:54 | W.PN.ANESINT ---
Anesthesia Intubation Note
- Intubation Note
Intubation Note:
Diagnosis: cardiac arrest
Blade: glidescope
Tube Size: 8.0
Depth: 23
Side Taped: center
Drugs Used: none
Grade View: 1
EtCO2 Present: ETCO2 change present on detector
Atraumatic: yes
Attempts: 1 attempt
Insertion Start and Stop Time: 909 start 919 end
SaO2 Pre: 66
SaO2 Post: 53
Glidescope Used: live glidescope used
Other Airway Adjustments: suctioned for copious stool and tube feeding and secretions
Pre-Oxygenated: by respiratory therapy
Portable Chest X-Ray: ordered
RSI: not required
Suctioned:suctioned for copious stool and tube feeding and secretions
Bilateral Breath Sounds Confirmed: yes
Vent Settings:
Settings per __X_Attending Physician
Azra Mistry CRNA
--- NOTE | 2024-12-25 09:56 | W.PN.UPDATE ---
Update Note
Progress Note Update
Overhead call for code 9 at 9:06 AM for loss of pulses.
Patient had been started on 3 pressors overnight.
High-quality chest compressions were initiated and ACLS was continued for 30 minutes, epinephrine drip and dobutamine drips were added, patient received a total of 8 push doses of epinephrine.
During multiple pulse checks patient was either asystolic or had pulseless electrical activity.
After 30 minutes of ACLS, chest compressions were discontinued, patient was pronounced at 9:36 AM.
was at bedside and condolences were offered.
Physical exam:
Pupils fixed and nonreactive to light
No heart sounds present, no pulses
No spontaneous breathing
No response to noxious stimuli
--- NOTE | 2024-12-25 10:20 | W.PN.UPDATE ---
Update Note
Progress Note Update
I responded to the code and ran the code. Over 30 min of critical care time spent. Pt did not respond to our aggressive resuscitation efforts.
[2024-12-25 10:25] LABS: Glycohemoglobin (HgbA1c) 4.1 % (4.0-5.6)
--- NOTE | 2024-12-25 11:24 | W.PN.DEATH ---
Pronouncement of
-
Called to see patient to pronounce.
No spontaneous heart tones or respirations noted.
Patient not responsive to verbal stimuli.
Patient is pronounced .
Time of : 09:36
Date of : 12/25/24
Cause of : Cardiopulmonary arrest secondary to acute hypoxic respiratory failure due to autoimmune hemolytic anemia
Family Notified: Yes
--- NOTE | 2024-12-25 11:30 | PTCARENOTE ---
Still awaiting additional family member. Pts partner at the bedside
--- NOTE | 2024-12-25 11:47 | CHAP ---
Emotional and spiritual support provided over the course of several hours during and after the code and of Mr. Howard. Stories and struggles shared.
--- NOTE | 2024-12-25 12:34 | W.DCSUMMARY ---
Discharge Summary
Discharge Data
Date of Admission: 12/18/24
Date of Discharge: 12/25/24
-
Pending Results: No
Hospital Course
Mr. Howard is a 54 male with a history of HIV (ON HAART, follows with [place] ID), HTN, and enlarged prostate who presented with AMS weakness palpitations. Noted severely lethargic on arrival to ED, became unresponsive, since improved (more awake
alert conversant coherent) with IVF bolus though remained confused disoriented to place and time, possible word finding difficulties. Sinus Tachy but otherwise VSS on room air, ED eval was also significant for severe Anemia Hgb 3.3 leukocytosis
29.4 and GOVIND Cr 2.5. No obvious signs of bleeding. Transfusions ordered however type and screen noted ab's requiring blood from [place], transfusion delayed as a result. With tachycardia elevated white count hx HIV possible GOVIND, significant
concern for severe sepsis opportunistic infection (though severe anemia would also likely result in tachycardia and stress reactive Leukocytosis without infection). Patient admitted to ICU for closer monitoring. Patient in extremis by early
morning next day prompting intubation and emergent transfusion least incompatible blood (total of 60 units) with improvement and stabilization of his hemoglobin levels.
He improved with blood transfusion, steroids, ventilator support, and vasopressors. He was later able to be weaned off of vasopressors and extubated. His blood work showed that he continued to have intravascular hemolysis. Broad workup was
ongoing involving hematology, infectious disease, internal medicine, nephrology, and critical care teams. He continued to improve until overnight from 12/24 to 12/25, when he had to be started back on vasopressors to maintain his blood pressure. By
graphic design assistant on 12/25 he was requiring 3 vasopressors and becoming significantly tachypneic. At 9:06 AM on 12/25 he became pulseless and ACLS was commenced. He received 30 minutes of chest compressions, epinephrine drip and dobutamine drip were
added, he received total of 8 pushes of epinephrine. After 30 minutes ACLS was discontinued. Patient was pronounced at 9:36 AM. was at bedside and condolences were offered.
Physical exam:
Pupils fixed and nonreactive to light
No heart sounds present, no pulses
No spontaneous breathing
No response to noxious stimuli
Discharge Plan
-
Referrals:
UNKNOWN - PT DOES,NOT KNOW [Family Provider] -
Prescriptions:
No Action
Vitamin C Powder
1 g PO DAILY
lisinopril-hydrochlorothiazide 20-12.5 mg Tablet
1 tab PO DAILY
loperamide 2 mg Tablet
2 mg PO Q6HPRN PRN (Reason: diarrhea)
minoxidil 2.5 mg Tablet
2.5 mg PO DAILY
loratadine 10 mg Tablet
10 mg PO DAILYPRN PRN (Reason: alleriges)
finasteride 1 mg Tablet
1 mg PO DAILY
olopatadine [Eye Allergy Itch Relief] 0.2 % Drops
1 drp BOTH EYES DAILYPRN PRN (Reason: allergies)
Biktarvy 50-200-25 mg Tablet
1 tab PO DAILY
Discharge Date and Time
Print Language: IVORIAN
--- NOTE | 2024-12-25 12:45 | PTCARENOTE ---
Family remains in room. [facility] notified.
--- NOTE | 2024-12-25 12:55 | CM ---
Pt this morning. CM offered condolences to pt's and pt's friends with emotional support.
Both pt's and pt's best friends asked information regarding cremation services. Provided information for [employer] and cremation services given.
CM is available for emotional support.
--- NOTE | 2024-12-25 14:00 | PTCARENOTE ---
Belongings sent with family including pts silver colored ring with white stone. [facility] notified and post mortem care completed.
[2024-12-25 18:59] LABS: Glu-6-Phosphate Dehydrogenase 31.3 U/g Hb (9.9-16.6)
[2024-12-25 19:20] LABS: CD4 % of Cells Analyzed 19 % (32-64); CD4 Absolute Count 251 cells/uL (430-1800)
[2024-12-26 00:23] LABS: EBV-EA (D) Ab IgG 9.9 U/mL (0.0-10.9); EBV-VCA IgG Antibodies >750.0 U/mL (0.0-21.9)
[2024-12-26 00:49] LABS: Mycoplasma pneumoniae IgG 0.05 U/L (<=0.09)
[2024-12-26 06:06] LABS: Number Of Markers 26 markers; Source Blood
[2024-12-26 12:16] LABS: Albumin 2.74 g/dL (3.75-5.01); Alpha 1 Globulin 0.36 g/dL (0.19-0.46); Alpha 2 Globulin 0.51 g/dL (0.48-1.05); Free Kappa Light Chains,Quant 68.26 mg/L (3.30-19.40); Free Lambda Light Chains,Quant 75.32 mg/L (5.71-26.30); IgA 515 mg/dL (68-408); IgG 1009 mg/dL (768-1632); IgM 35 mg/dL (35-263); Immunofixation Electrophoresis IFE Done; Kappa/Lambda Fr Light Ratio 0.91 (0.26-1.65); Total Protein-Electrophoresis 5.3 g/dL (6.3-8.2)
--- NOTE | 2024-12-26 15:20 | PN.CDI ---
CDI
- -
CDI:
Physician Documentation Request
Admit Date: 12/18/24 17:04
Dear Doctor Talon,
Patient admitted with autoimmune hemolytic anemia.
12/24 ID note, 'HIV - Most recent VL = 22; CD4 = 391; Biktarvy (currently on hold).'
12/18 Other Health Care facility Information( [facility]), 'h/o HIV, on ART with consistent viral suppression, h/o Karposi's Sarcoma (now in remission)...'
12/24 % CD4 Cells -19
12/24 Absolute CD4 Count -251
Please clarify further specificity regarding the patient's HIV status:
Asymptomatic HIV infection status: HIV + no history of associated opportunistic infection
HIV disease: (AIDS, AIDS related complex (ARC) HIV infection, symptomatic)
Other
Use of terms such as suspected, likely, concern for, or probable (associated with a specific diagnosis that is being evaluated, monitored, or treated as if it exists) are acceptable and can be coded in the inpatient setting, when documented at the
time of discharge.
Thank you,
Penelope OH,RN,CCDS
CDI Specialist
Available via [place] text
Please use your independent medical judgment in providing your response.
== END 2024-12-25 09:36 | disposition expired | DRG 977 ==
LOC: ICU 17:04
PROVIDERS: Internal Medicine Critical Care Medicine; Internal Medicine Gastroenterology; Internal Medicine Hematology & Oncology; Nurse Practitioner Acute Care; Nurse Practitioner Family; Nurse Practitioner Primary Care; Physician Assistant; Radiology Diagnostic Radiology; ADMITTING PHYSICIAN Internal Medicine; ATTENDING PHYSICIAN Internal Medicine; CONSULT PHYSICIAN Internal Medicine; CONSULT PHYSICIAN Internal Medicine Hematology & Oncology; EMERGENCY PHYSICIAN Emergency Medicine; OTHER PHYSICIAN Internal Medicine Gastroenterology; OTHER PHYSICIAN Internal Medicine Infectious Disease
PROC: 03HY32Z Insertion of Monitoring Device into Upper Artery, Percutaneous Approach (ICD-10-PCS; 2024-12-19)
PROC: 30243N1 Transfusion of Nonautologous Red Blood Cells into Central Vein, Percutaneous Approach (ICD-10-PCS; 2024-12-19)
PROC: 05H533Z Insertion of Infusion Device into Right Subclavian Vein, Percutaneous Approach (ICD-10-PCS; 2024-12-19)
PROC: 4A133J1 Monitoring of Arterial Pulse, Peripheral, Percutaneous Approach (ICD-10-PCS; 2024-12-19)
PROC: 5A1945Z Respiratory Ventilation, 24-96 Consecutive Hours (ICD-10-PCS; 2024-12-19)
PROC: 0BH17EZ Insertion of Endotracheal Airway into Trachea, Via Natural or Artificial Opening (ICD-10-PCS; 2024-12-19)
PROC: 4A133B1 Monitoring of Arterial Pressure, Peripheral, Percutaneous Approach (ICD-10-PCS; 2024-12-19)
PROC: 0D9670Z Drainage of Stomach with Drainage Device, Via Natural or Artificial Opening (ICD-10-PCS; 2024-12-19)
PROC: 0DH67UZ Insertion of Feeding Device into Stomach, Via Natural or Artificial Opening (ICD-10-PCS; 2024-12-19)
PROC: 0DJ08ZZ Inspection of Upper Intestinal Tract, Via Natural or Artificial Opening Endoscopic (ICD-10-PCS; 2024-12-20)
PROC: 0BP1XDZ Removal of Intraluminal Device from Trachea, External Approach (ICD-10-PCS; 2024-12-23)
PROC: 5A12012 Performance of Cardiac Output, Single, Manual (ICD-10-PCS; 2024-12-25)
DX: D59.11 Warm autoimmune hemolytic anemia (principal); B20 Human immunodeficiency virus [HIV] disease; J96.01 Acute respiratory failure with hypoxia; K20.91 Esophagitis, unspecified with bleeding; K72.00 Acute and subacute hepatic failure without coma; N17.9 Acute kidney failure, unspecified; E87.20 Acidosis, unspecified; J98.11 Atelectasis; Z99.11 Dependence on respirator [ventilator] status; E87.0 Hyperosmolality and hypernatremia; K31.89 Other diseases of stomach and duodenum; R59.1 Generalized enlarged lymph nodes; R57.1 Hypovolemic shock; I12.9 Hypertensive chronic kidney disease with stage 1 through stage 4 chronic kidney disease, or unspecified chronic kidney disease; N40.0 Benign prostatic hyperplasia without lower urinary tract symptoms; I25.10 Atherosclerotic heart disease of native coronary artery without angina pectoris; K80.20 Calculus of gallbladder without cholecystitis without obstruction; R74.02 Elevation of levels of lactic acid dehydrogenase [LDH]; N20.0 Calculus of kidney; N18.30 Chronic kidney disease, stage 3 unspecified; F18.1 Inhalant abuse; I46.8 Cardiac arrest due to other underlying condition; R74.01 Elevation of levels of liver transaminase levels; D69.6 Thrombocytopenia, unspecified; E87.5 Hyperkalemia; R73.9 Hyperglycemia, unspecified; Z11.52 Encounter for screening for COVID-19; Z78.1 Physical restraint status; Z85.89 Personal history of malignant neoplasm of other organs and systems
CPT/HCPCS: 36600; 70450; 71045; 71250; 74018; 74176; 76700; 76770; 80048; 80053; 80143; 80202; 80306; 81003; 81015; 82077; 82140; 82248; 82550; 82570; 82607; 82668; 82728; 82746; 82784; 82805; 82955; 82962; 83010; 83036; 83521; 83540; 83550; 83605; 83615; 83690; 83735; 83935; 84100; 84155; 84156; 84165; 84300; 84478; 84484; 85014; 85018; 85025; 85027; 85045; 85384; 85610; 85730; 86334; 86361; 86663; 86664; 86665; 86704; 86705; 86706; 86708; 86709; 86738; 86803; 86850; 86870; 86880; 86900; 86901; 86902; 86920; 86922; 87015; 87040; 87070; 87086; 87147; 87186; 87205; 87207; 87340; 87502; 87811; 92610; 93005; 93306; 93975; 94002; 94003; 94640; 94660; 96360; 97163; 97167; 99285; P9016; P9058